=== PATIENT | male | born 1955 | race Hispanic/Latino ===

== ENCOUNTER 2017-06-12 06:10 | Inpatient (IN) | payer MEDICAID, SELFPAY ==
[2017-06-12] MEDS ORDERED: Ondansetron HCl/PF 4 MG/2 ML Vial IVP PRN ×2 (08:54→09:00)
[2017-06-12] MEDS ORDERED: Ondansetron ODT 4 MG TAB PO PRN ×2 (08:54→09:00)
[2017-06-12] MEDS ORDERED: Acetaminophen 325 MG TAB PO PRN ×2 (08:55→09:00)
[2017-06-12] MEDS ORDERED: Milk Of Magnesia 30 ML UDCUP PO PRN (09:00)
[2017-06-12] MEDS ORDERED: Nitroglycerin 0.4 MG TAB (25 Tab Bottle) SL PRN (09:00)
[2017-06-12] MEDS ORDERED: Artificial Tears 18 DROP/0.9 ML EA EYE PRN (09:00)
[2017-06-12] MEDS ORDERED: Eucerin (Mineral Oil/Petrolatum,White) 30 gm Jar TOP PRN (09:00)
[2017-06-12] MEDS ORDERED: Mag-Al 1200 mg/1200 mg/30 ML UDCUP PO PRN (09:00)
[2017-06-12] MEDS ORDERED: Sodium Chloride 0.65% Nasal 44 ML BOT EA NARE PRN (09:00)
[2017-06-12] MEDS ORDERED: Zolpidem Tartrate 5 MG TAB PO PRN (09:00)
[2017-06-12] MEDS ORDERED: Loperamide HCl 2 MG CAP PO PRN (09:00)
[2017-06-12] MEDS ORDERED: Diabetic Tussin 200 MG/10 ML UDCUP PO PRN (09:00)
[2017-06-12] MEDS ORDERED: Loratadine 10 MG TAB PO PRN (09:00)
[2017-06-12] MEDS ORDERED: Senokot 8.6 MG TAB PO PRN (09:00)
[2017-06-12] MEDS ORDERED: HYDROcodone/Acetaminophen 5/325 mg Tablet PO PRN (09:00)
--- NOTE | 2017-06-12 10:04 | HP ---
REASON FOR ADMISSION: Acute on chronic systolic and diastolic congestive heart failure exacerbation and hypertensive urgency. HISTORY OF PRESENT ILLNESS: A 61-year-old male who is Stateless speaking only, who initially went to [facility] with complaint of increasing shortness of breath. Patient had increa sing shortness of breath for the last 2-3 days, but last night episode was worse, he was having orth opnea. He does have bilateral lower extremity pitting edema and he was feeling heaviness in his [address]. He denies any palpitations. He does report increased weight gain. He was not able to lie down flat and he was feeling uncomfortable and that is why he decided to go to [facility] for evaluation. At [facility], the patient's blood pressure was 215/117. The patient was having low grad e fever with a temperature of 99.9 initially and he was tachypneic. He was requiring oxygen to main tain saturation. At [facility], he was given Lasix 40 mg, Solu-Medrol 125 mg, nitro patch 1 inch, Lasix 40 mg, metoprolol tartrate 5 mg IV push, DuoNeb therapy and aspirin 324 mg. Subsequently, he was borja sferred to our emergency room. The patient was still having high blood pressure when he arrived to our emergency room, his D-dimer was elevated and his BNP was elevated. The patient also stopped taking Lasix because he ran out and he was not followed up with the primary doctor. This patient had recent admission in our hospital in 12/2016. At that time, echocardiography showed systolic and diastolic dysfunction. The patient also had a stress test which showed global hypokin esis without any reversibility. The patient was discharged home on medication, but subsequently he did not follow up with the doctors. Patient also has increasing renal insufficiency. PAST MEDICAL HISTORY: Chronic systolic and diastolic heart failure, diabetes type 2, now diet contr olled, dyslipidemia, hypertension, chronic kidney disease stage IV, medication noncompliance, anemia normocytic. PAST SURGICAL HISTORY: Patient denies any previous surgical history. PAST PSYCHIATRIC HISTORY: Reviewed and negative. FAMILY HISTORY: No strong family history of premature coronary artery disease, stroke or cancer. REVIEW OF SYSTEMS: The following complete review of systems was negative, unless otherwise mentione d in the HPI or below: Constitutional: Weight loss or gain, ability to conduct usual activities. Skin: Rash, itching. Eyes: Double vision, pain. ENT/Mouth: Nose bleeding, neck stiffness, pain, tenderness. Cardiovascular: Palpitations, dyspnea on exertion, orthopnea. Respiratory: Shortness of breath, wheezing, cough, hemoptysis, fever or night sweats. Gastrointestinal: Poor appetite, abdominal pain, heartburn, nausea, vomiting, constipation, or diar idania. Genitourinary: Urgency, frequency, dysuria, nocturia. Musculoskeletal: Pain, swelling. Neurologic/Psychiatric: Anxiety, depression. Allergy/Immunologic: Skin rash, bleeding tendency. Please see my HPI for pertinent positive and negative. All other review of systems reviewed and neg ative except as mentioned in the HPI. ALLERGIES: No known drug allergies. SOCIAL HISTORY: Patient is a former smoker. He quit smoking a few years ago. He denies any alcoho l or other illicit drug abuse. The patient reports himself as a social drinker. As per the [facility] record, the patient reported that he drinks 6-7 beers daily, but he denies to me toda y. CURRENT HOME MEDICATIONS: Aspirin 81 mg p.o. daily, Coreg 6.25 mg p.o. b.i.d., Lasix 40 mg p.o. sven ly, Imdur 60 mg p.o. daily, pravastatin 20 mg p.o. at bedtime, hydralazine 25 mg p.o. b.i.d. EMERGENCY ROOM COURSE: The patient was given Lasix 40 mg, Solu-Medrol 125 mg, nitro patch, another dose of Lasix 40 mg, metoprolol 5 mg, DuoNeb one time, aspirin 324 mg at [facility], the patient received 10 mg IV hydralazine in our emergency room. PHYSICAL EXAMINATION: VITAL SIGNS: On arrival to our emergency room, blood pressure 192/116, pulse 102, respiratory rate 19, temperature 98.9, saturation 91% on room air. Weight 75 kilograms. GENERAL: Patient is currently alert, awake, no obvious acute distress. HEAD: Normocephalic, atraumatic. EYES: Pupils round and reactive to light. Extraocular muscle intact. ENT: Oropharynx within normal limits. Moist mucous membranes. No oral lesions. No pharyngeal regine thema, no exudate. NECK: Supple. Range of motion is normal. No meningeal signs of irritation. LUNGS: Bibasilar rales noted. Few reduced air entry, no wheeze. No accessory muscles of respirati on use. CARDIAC: S1 and S2 regular, no murmur, no gallop, no rub. ABDOMEN: Soft, bowel sounds present, nontender, nondistended. No organomegaly, no mass, no suprapu bic tenderness. BACK: Examination unremarkable, no CVA tenderness. EXTREMITIES: Upper extremity passive movements of all joints are normal. Lower extremity bilateral pitting edema noted. Good peripheral pulsation. SKIN: No skin rash. HEMATOLOGICAL SYSTEM: No lymphadenopathy. PSYCHIATRIC: Normal affect. SIGNIFICANT LABORATORY DATA: CBC: WBC 5.6, hemoglobin 11.8, platelets 182. D-dimer 1.83. BMP: S odium 136, potassium 4.3, chloride 108, carbon dioxide 14, anion gap 18, BUN 21, creatinine 4.38, gl ucose 114, calcium 6.8. CK-MB 4.1, troponin I 0.012. BNP 2695. ASSESSMENT AND PLAN/IMPRESSION: 1. Acute on chronic systolic and diastolic congestive heart failure exacerbation. This patient has most recent echocardiography in 01/2017 and ejection fraction was 30%-35% with diastolic dysfunctio n. Currently, patient is not taking any medication. He ran out of medication, Lasix. He has eleva dyan BNP. He has pulmonary vascular congestion. He has relative hypoxia. He has bilateral lower ex tremity edema and basilar rales, all contributes to his congestive heart failure exacerbation. At t his point, the patient will require admission. We will treat him with Lasix 40-60 mg IV b.i.d., flu id restriction 1500 mL per day. We will monitor renal function and will replace electrolytes as nee ded basis. Patient already had a stress test done during this admission and it was negative for any reversible ischemia. 2. Acute on chronic kidney failure. This patient has gradually worsening renal failure with baseli ne chronic kidney disease stage 4. This patient, if he does not make any good urine output with Las ix, then we will consider nephrology consultation for possible need of dialysis in the near future, at least we can do dialysis access during this admission, so he can get dialysis in the near future. His kidney failure is related with cardiorenal syndrome and diabetic nephropathy. We will check u rinalysis, urine protein creatinine ratio. 3. Hypertension with hypertensive urgency and uncontrolled hypertension. We will use hydralazine o n p.r.n. basis. We will continue with nitro patch q.8 hourly along with hydralazine 25 mg t.i.d. an d Coreg was 6.25 mg p.o. b.i.d. We will increase the dose of Coreg as tolerated. 4. Dyslipidemia. We will start Lipitor 40 mg p.o. at bedtime and check lipid profile tomorrow. 5. Deep venous thrombosis prophylaxis, heparin 5000 units subcu twice daily. 6. Anemia of renal disease. We will start ferrous sulfate 325 mg p.o. daily. 7. Metabolic acidosis likely due to renal failure. We will start sodium bicarbonate 325 mg p.o. b. i.d. 8. Hypocalcemia, likely related with secondary hyperparathyroidism of renal origin and we will chec k PTH and phosphorus tomorrow. We will continue with the calcium carbonate, Tums 1 gram t.i.d. 9. Code status: The patient is FULL CODE. Patient does not have any surrogate decision maker. Disposition and plan based on clinical course. We are expecting patient's stay in hospital more kali n 2 midnights. Plan of 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 with the patient in detail.
[2017-06-12 10:11] LABS: Troponin I 0.037 ng/mL (< 0.028)
[2017-06-12] MEDS ORDERED: FLU VACC QS2017-18 36 mo. & older 0.5 ML SYRINGE IM ONE (11:15)
[2017-06-12 11:22] VITALS: BMI 28.8
[2017-06-12] MEDS: Heparin 5,000 UNITS/ML VIAL SC SCH ×2 (11:31→21:26)
[2017-06-12] MEDS: Furosemide 40 MG/4 ML VIAL SLOW IVP SCH (14:08)
[2017-06-12] MEDS: Nitroglycerin 2% Ointment 1 INCH/1 GM Packet TOP SCH ×2 (14:10→21:27)
[2017-06-12] MEDS ORDERED: Dextrose 50% Abboject 50 ML SYRINGE IVP PRN (17:47)
[2017-06-12] MEDS ORDERED: HumaLOG 300 UNITS/3 ML VIAL SC PRN (17:47)
[2017-06-12] MEDS ORDERED: Dextrose 5% in Water 1,000 ML IV PRN (17:47)
[2017-06-12] MEDS: Carvedilol 6.25 MG TAB PO SCH (17:59)
--- NOTE | 2017-06-12 18:57 | CON ---
DATE OF CONSULTATION: 06/12/2017 NEPHROLOGY CONSULTATION REASON FOR CONSULTATION: Acute kidney injury. HISTORY OF PRESENTING ILLNESS: This is a very pleasant 61-year-old gentleman who presented to the [facility] this morning for management of hypertensive urgency and acute congestive heart failure. The patient has shortness of breath for the last 2-3 days. The patient was treated with Lasix. His [facility] creatinine was 3.6 in 01/2017 and increased to 4.3. The patient at this time denies leg swel ling, nausea, vomiting or chest pain. PAST MEDICAL HISTORY: Significant for hypertension, diabetes mellitus, CKD stage 4, noncompliance, history of no surgery. FAMILY HISTORY: Negative for ESRD. REVIEW OF SYSTEMS: A 15-point review of systems was performed and negative except for positives not ed above. GENERAL: Weakness- HEAD: Headache- NECK: No swelling or lumps. NOSE: No epistaxis or discharge. EYES: No diplopia or pain. RESPIRATORY: Dyspnea- CARDIOVASCULAR: Chest pain- GASTROINTESTINAL: Nausea- /TRANSITIONAL CARE LIAISON: Hematuria- MUSCULOSKELETAL: No joint pain. NEUROPSYCHIATIC SYSTEMS: No suicidal ideation. No ideation. SKIN: Denies any rash or ulcer. CONSTITUTIONAL: No fever or chills. ALLERGIES: Reviewed. SOCIOECONOMIC: No alcohol or drug use. HOME MEDICATIONS: List reviewed. PHYSICAL EXAMINATION: GENERAL: On examination, patient is awake, alert. VITAL SIGNS: Afebrile, pulse 102, breathing at 16, blood pressure 192/116. GENERAL APPEARANCE AND MENTAL STATUS: Fair. HEAD/NECK: Normocephalic. Atraumatic. EYES: EOMI. No deformity. EARS: Clear. No ulcers. NOSE: Intact. No lesions. MOUTH: Clear. No discharge. THROAT: Clear. No exudate. LUNGS: Clear. No crackles. CARDIAC: S1, S2. No rub. ABDOMEN: Benign. BS+. GENITALIA/RECTUM: Teague absent. BACK/EXTREMITIES: Edema 0+ Ulcer- NEUROLOGICAL: Alert and motor intact. SKIN: Rash- Bruise- LYMPHATICS: Edema- Ulcer- LABORATORY DATA: Show creatinine 4.3. ASSESSMENT AND RECOMMENDATIONS: 1. Stage 5 chronic kidney disease. No indication for dialysis. 2. Hypertension, management per primary team. 3. Metabolic acidosis. Recommend sodium bicarbonate 650 t.i.d. 4. Congestive heart failure. Management primary team and low vitamin D level and give vitamin D re placement. I will follow the patient as needed.
[2017-06-12] MEDS: Calcium Carbonate 500 MG ChewTAB PO SCH (21:26)
[2017-06-12] MEDS: Sodium Bicarbonate Tab 325 MG TAB PO SCH (21:27)
[2017-06-13 05:21] LABS: #Lymphocytes 0.5 thou/uL (1.20-3.40); #Monocytes 0.4 thou/uL (0.11-0.59); #Neutrophils 5.8 thou/uL (1.40-6.50); %Eosinophils 0.3 % (0.0-10.0); %Lymphocytes 6.8 % (21.0-51.0); %Monocytes 5.9 % (0.0-10.0); Hematocrit 26.1 % (42.0-52.0); Mean Platelet Volume 7.9 fL (7.4-10.4); Red Blood Cell (RBC) Count 2.86 mill/uL (4.70-6.10); White Blood Cell (WBC) Count 6.6 thou/uL (4.8-10.8)
[2017-06-13 05:29] LABS: ALT (SGPT) 10 U/L (8-55); AST (SGOT) 14 U/L (5-34); Alkaline Phosphatase 61 U/L (40-150); Anion Gap 14 mmol/L (10-20); BUN (Urea Nitrogen) 35 mg/dL (8.4-25.7); Bilirubin, Total 0.3 mg/dL (0.2-1.2); Calc. Creatinine Clearance 17 mL/min (70-130); Calcium 6.6 mg/dL (7.8-10.44); Carbon Dioxide 19 mmol/L (22-29); Chloride 108 mmol/L (98-107); Estimated GFR-MDRD 12; Globulin 2.9 g/dL (2.4-3.5); Protein, Total 5.7 g/dL (6.0-8.3); Uric Acid 7.7 mg/dL (3.5-7.2)
[2017-06-13] MEDS: Nitroglycerin 2% Ointment 1 INCH/1 GM Packet TOP SCH ×3 (05:37→21:07)
[2017-06-13] MEDS: Furosemide 40 MG/4 ML VIAL SLOW IVP SCH (05:37)
--- NOTE | 2017-06-13 08:10 | PRG ---
DATE OF SERVICE: 06/13/2017 SUBJECTIVE: This is a 61-year-old gentleman being seen for stage 5 chronic kidney disease. The pat ient denies any nausea, vomiting or chest pain. PHYSICAL EXAMINATION: GENERAL: Patient is awake, alert. VITAL SIGNS: Afebrile, pulse 95, breathing at 16, blood pressure 138/66. GENERAL APPEARANCE AND MENTAL STATUS: Fair. HEAD/NECK: Normocephalic. Atraumatic. EYES: EOMI. No deformity. EARS: Clear. No ulcers. NOSE: Intact. No lesions. MOUTH: Clear. No discharge. THROAT: Clear. No exudate. LUNGS: Clear. No crackles. CARDIAC: S1, S2. No rub. ABDOMEN: Benign. BS+. GENITALIA/RECTUM: Teague absent. BACK/EXTREMITIES: Edema 0+ Ulcer- NEUROLOGICAL: Alert and motor intact. SKIN: Rash- Bruise- LYMPHATICS: Edema- Ulcer- LABORATORY DATA: Show potassium is 4.9, creatinine is 5.1. ASSESSMENT AND RECOMMENDATIONS: 1. Stage 5 chronic kidney disease, progressively getting worse. No indication for dialysis. 2. Hypertension, stable. 3. Anemia, stable. 4. Hypocalcemia. Recommend to increase Tums. 5. Hypouricemia. Would recommend allopurinol. No indication for dialysis.
[2017-06-13] MEDS: Calcium Carbonate 500 MG ChewTAB PO SCH ×2 (08:42→21:05)
[2017-06-13] MEDS: Allopurinol 100 MG TAB PO SCH (08:42)
[2017-06-13] MEDS: Calcitriol 0.25 MCG CAP PO SCH (08:42)
[2017-06-13] MEDS: Carvedilol 6.25 MG TAB PO SCH ×2 (08:42→16:45)
[2017-06-13] MEDS: Sodium Bicarbonate Tab 325 MG TAB PO SCH ×2 (08:42→21:07)
[2017-06-13] MEDS: Ferrous Sulfate 325 MG TAB PO SCH (08:42)
[2017-06-13] MEDS: Heparin 5,000 UNITS/ML VIAL SC SCH ×2 (08:42→21:06)
[2017-06-13] MEDS: Calcium Acetate 667 MG CAP PO SCH ×2 (12:12→16:44)
--- NOTE | 2017-06-13 12:57 | PDOC.PN ---
- Subjective Encounter Start Date: 06/13/17 Encounter Start Time: 08:45 -: old records requested/rev Patient seen and examined. No new complaints. No overnight events - Objective Resuscitation Status: Resuscitation Status FULL:Full Resuscitation MAR Reviewed: Yes Vital Signs & Weight: Vital Signs (12 hours) Temp Pulse Resp BP BP Pulse Ox 06/13/17 08:42 96 145/78 H 06/13/17 08:00 97.8 F 90 16 145/78 H 98 06/13/17 06:24 96 16 100 06/13/17 04:00 98.4 F 94 20 138/66 99 Weight Weight 167 lb 14.4 oz I&O: 06/12/17 06/13/17 06/14/17 06:59 06:59 06:59 Intake Total 240 Balance 240 Result Diagrams: 06/13/17 05:03 06/13/17 05:03 Additional Labs: Accuchecks 06/13/17 06/13/17 06/12/17 11:43 06:06 20:42 POC Glucose 152 H 139 H 280 H 06/12/17 17:07 POC Glucose 351 H EKG Reviewed by me: Yes Phys Exam - Physical Examination Constitutional: NAD HEENT: PERRLA, moist MMs, sclera anicteric Neck: no JVD, supple Respiratory: no wheezing, no rales, no rhonchi Cardiovascular: RRR, no significant murmur, no rub Gastrointestinal: soft, non-tender, no distention, positive bowel sounds Musculoskeletal: no edema, pulses present Neurological: non-focal, normal sensation Lymphatic: no nodes Psychiatric: normal affect, A&O x 3 Skin: no rash, normal turgor Dx/Plan (1) Acute on chronic combined systolic and diastolic congestive heart failure Code(s): I50.43 - ACUTE ON CHRONIC COMBINED SYSTOLIC AND DIASTOLIC HRT FAIL Status: Acute (2) Acute worsening of stage 4 chronic kidney disease Code(s): N28.9 - DISORDER OF KIDNEY AND URETER, UNSPECIFIED; N18.4 - CHRONIC KIDNEY DISEASE, STAGE 4 (SEVERE) Status: Acute (3) Hypertension, uncontrolled Code(s): I10 - ESSENTIAL (PRIMARY) HYPERTENSION Status: Acute (4) Hyperuricemia Code(s): E79.0 - HYPERURICEMIA W/O SIGNS OF INFLAM ARTHRIT AND TOPHACEOUS DIS Status: Acute (5) Hypocalcemia Code(s): E83.51 - HYPOCALCEMIA Status: Acute (6) Metabolic acidosis Code(s): E87.2 - ACIDOSIS Status: Acute (7) Vitamin D deficiency Code(s): E55.9 - VITAMIN D DEFICIENCY, UNSPECIFIED Status: Acute (8) Anemia of renal disease Code(s): D63.1 - ANEMIA IN CHRONIC KIDNEY DISEASE Status: Chronic (9) CKD (chronic kidney disease) stage 4, GFR 15-29 ml/min Code(s): N18.4 - CHRONIC KIDNEY DISEASE, STAGE 4 (SEVERE) Status: Chronic (10) DM type 2 (diabetes mellitus, type 2) Status: Chronic (11) Noncompliance with medication regimen Code(s): Z91.14 - PATIENT'S OTHER NONCOMPLIANCE WITH MEDICATION REGIMEN Status : Chronic (12) Secondary hyperparathyroidism of renal origin Code(s): N25.81 - SECONDARY HYPERPARATHYROIDISM OF RENAL ORIGIN Status: Chronic - 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, plan discussed w/ family * will add phoslo, allopurinol today * will check urine protein and creatinine * may need to start HD this admission * nephrology following * discussed with * medication reviewed as below * symptomatic treatment. * will reduce lasix daily * monitor renal function Review of Systems - Review of Systems ENT: negative: Ear Pain, Ear Discharge, Nose Pain, Nose Discharge, Nose Congestion, Mouth Pain, Mouth Swelling, Throat Pain, Throat Swelling, Other Respiratory: negative: Cough, Dry, Shortness of Breath, Hemoptysis, SOB with Excertion, Pleuritic Pain, Sputum, Wheezing Cardiovascular: negative: Chest Pain, Palpitations, Orthopnea, Paroxysmal Noc. Dyspnea, Edema, Light Headedness, Other Gastrointestinal: negative: Nausea, Vomiting, Abdominal Pain, Diarrhea, Constipation, Melena, Hematochezia, Other Genitourinary: negative: Dysuria, Frequency, Incontinence, Hematuria, Retention , Other Musculoskeletal: negative: Neck Pain, Shoulder Pain, Arm Pain, Back Pain, Hand Pain, Leg Pain, Foot Pain, Other Skin: negative: Rash, Lesions, Reji, Bruising, Other - Medications/Allergies Allergies/Adverse Reactions: Allergies Allergy/AdvReac Type Severity Reaction Status Date / Time No Known Drug Allergies Allergy Verified 12/29/16 23:47 Medications: Current Medications Acetaminophen (Tylenol) 650 mg PO Q4H PRN PRN Reason: Headache/Fever or Pain Hydrocodone Bitart/Acetaminophen (Holden 5/325) 1 tab PO Q4H PRN PRN Reason: Moderate Pain (4-6) Al Hydroxide/Mg Hydroxide (Maalox) 30 ml PO Q6H PRN PRN Reason: Heartburn or Indigestion Albuterol/Ipratropium (Duoneb) 3 ml NEB [id number] [facility] Last Admin: 06/13/17 06:24 Dose: 3 ml Allopurinol (Zyloprim) 100 mg PO DAILY [facility] Last Admin: 06/13/17 08:42 Dose: 100 mg Artificial Tears (Tears Naturale) 0 drop EA EYE PRN PRN PRN Reason: Dry Eyes Aspirin (Aspirin Chewable) 81 mg PO DAILY [facility] Last Admin: 06/13/17 08:42 Dose: 81 mg Calcitriol (Rocaltrol) 0.25 mcg PO DAILY [facility] Last Admin: 06/13/17 08:42 Dose: 0.25 mcg Calcium Acetate (Phoslo) 1,334 mg PO TID-[facility] Last Admin: 06/13/17 12:12 Dose: 1,334 mg Calcium Carbonate (Tums) 1,000 mg PO BID [facility] Last Admin: 06/13/17 08:42 Dose: 1,000 mg Carvedilol (Coreg) 6.25 mg PO BID-[facility] Last Admin: 06/13/17 08:42 Dose: 6.25 mg Cholecalciferol (Vitamin D3) 1,000 units PO DAILY [facility] Last Admin: 06/13/17 08:42 Dose: 1,000 units Dextrose/Water (Dextrose 50%) 25 gm IVP PRN PRN PRN Reason: HYPOGLYCEMIA PROTOCOL Ferrous Sulfate (Feosol) 325 mg PO QAM-[facility] Last Admin: 06/13/17 08:42 Dose: 325 mg Furosemide (Lasix) 40 mg SLOW IVP 0600,1400 [facility] Last Admin: 06/13/17 05:37 Dose: 40 mg Glucagon (Glucagon) 1 mg IM PRN PRN PRN Reason: HYPOGLYCEMIA PROTOCOL Guaifenesin (Robitussin Sf) 200 mg PO Q4H PRN PRN Reason: Cough Heparin Sodium (Porcine) (Heparin) 5,000 units SC BID [facility] Last Admin: 06/13/17 08:42 Dose: 5,000 units Hydralazine HCl (Apresoline) 10 mg SLOW IVP Q4H PRN PRN Reason: Systolic BP > 180 Last Admin: 06/12/17 18:02 Dose: 10 mg Hydralazine HCl (Apresoline) 25 mg PO TID [facility] Last Admin: 06/13/17 08:42 Dose: 25 mg Dextrose/Water (D5w) 1,000 mls @ 0 mls/hr IV INF PRN; As Directed PRN Reason: HYPOGLYCEMIA PROTOCOL Insulin Human Lispro (Humalog) 0 units SC .MODERATE SLIDING SC PRN; Protocol PRN Reason: MODERATE SLIDING SCALE Last Admin: 06/12/17 18:05 Dose: 10 unit Loperamide HCl (Imodium) 2 mg PO PRN PRN PRN Reason: Diarrhea/Loose Stools Loratadine (Claritin) 10 mg PO DAILYPRN PRN PRN Reason: Sinus Symptoms Magnesium Hydroxide (Milk Of Magnesium) 30 ml PO DAILYPRN PRN PRN Reason: Constipation Mineral Oil/White Petrolatum (Eucerin Cream) 0 gm TOP BIDPRN PRN PRN Reason: Dry Skin Nitroglycerin (Nitrostat) 0.4 mg SL Q5MIN PRN PRN Reason: Chest Pain Nitroglycerin (Nitro-Bid 2% Ointment) 0.5 inch TOP Q8HR [facility] Last Admin: 06/13/17 05:37 Dose: 0.5 inch Ondansetron HCl (Zofran Odt) 4 mg PO Q6H PRN PRN Reason: Nausea/Vomiting Ondansetron HCl (Zofran) 4 mg IVP Q6H PRN PRN Reason: Nausea/Vomiting Senna (Senokot) 2 tab PO HSPRN PRN PRN Reason: Constipation Sodium Bicarbonate (Bicarbonate, Sodium) 325 mg PO BID [facility] Last Admin: 06/13/17 08:42 Dose: 325 mg Sodium Chloride (Flush - Normal Saline) 10 ml IVF Q12HR [facility] Last Admin: 06/13/17 08:43 Dose: 10 ml Sodium Chloride (Flush - Normal Saline) 10 ml IVF PRN PRN PRN Reason: Saline Flush Sodium Chloride (Krupp Nasal Davis 0.65%) 0 ml EA NARE QIDPRN PRN PRN Reason: Nasal Congestion Zolpidem Tartrate (Ambien) 5 mg PO HSPRN PRN PRN Reason: Insomnia
[2017-06-13 15:34] LABS: Bilirubin Negative (Negative); Blood, Urine Trace (Negative); Glucose, Urine (Dipstick) 100 mg/dL (Negative); Ketone, Urine Negative (Negative); Nitrite Negative (Negative); Protein, Urine (Dipstick) 300 mg/dL (Neg-Trace); Urobilinogen 0.2 mg/dL (0.2-1.0)
[2017-06-13 15:36] LABS: Bacteria/HPF None Seen HPF (None Seen); Hyaline Casts/LPF 0-3 HYALINE CAST LPF (0-3 Hyaline); Squamous Epithelial 0-3 HPF (0-3); WBC/HPF 0-3 HPF (0-3)
[2017-06-14 05:06] LABS: #Eosinphils 0.1 thou/uL (0.0-0.7); #Lymphocytes 0.5 thou/uL (1.20-3.40); #Monocytes 0.3 thou/uL (0.11-0.59); %Basophils 0.3 % (0.0-1.0); %Eosinophils 1.9 % (0.0-10.0); %Lymphocytes 7.6 % (21.0-51.0); Hematocrit 27.3 % (42.0-52.0); Mean Platelet Volume 8.2 fL (7.4-10.4); Red Blood Cell (RBC) Count 2.97 mill/uL (4.70-6.10)
[2017-06-14 05:39] LABS: Anion Gap 10 mmol/L (10-20); BUN (Urea Nitrogen) 37 mg/dL (8.4-25.7); Calc. Creatinine Clearance 17 mL/min (70-130); Calcium 7.2 mg/dL (7.8-10.44); Carbon Dioxide 25 mmol/L (22-29); Chloride 105 mmol/L (98-107); Estimated GFR-MDRD 12; Phosphorus 4.8 mg/dL (2.3-4.7)
[2017-06-14] MEDS: Nitroglycerin 2% Ointment 1 INCH/1 GM Packet TOP SCH ×3 (05:48→21:03)
[2017-06-14] MEDS: Furosemide 40 MG/4 ML VIAL SLOW IVP SCH (08:09)
[2017-06-14] MEDS: Calcitriol 0.25 MCG CAP PO SCH (08:09)
[2017-06-14] MEDS: Calcium Carbonate 500 MG ChewTAB PO SCH ×2 (08:09→21:03)
[2017-06-14] MEDS: Sodium Bicarbonate Tab 325 MG TAB PO SCH ×2 (08:09→21:02)
[2017-06-14] MEDS: Heparin 5,000 UNITS/ML VIAL SC SCH ×2 (08:09→21:05)
[2017-06-14] MEDS: Carvedilol 6.25 MG TAB PO SCH ×2 (08:09→17:42)
[2017-06-14] MEDS: Allopurinol 100 MG TAB PO SCH (08:09)
[2017-06-14] MEDS: Calcium Acetate 667 MG CAP PO SCH ×3 (08:09→17:42)
[2017-06-14] MEDS: Ferrous Sulfate 325 MG TAB PO SCH (08:10)
--- NOTE | 2017-06-14 09:23 | PRG ---
DATE OF SERVICE: 06/13/2017 SUBJECTIVE: A 61-year-old gentleman being seen for acute kidney injury. The patient denies any juan sea, vomiting, or chest pain. PHYSICAL EXAMINATION: GENERAL: The patient is awake, alert. VITAL SIGNS: Temperature 100, pulse 81, breathing at 16, blood pressure 152/79. GENERAL APPEARANCE AND MENTAL STATUS: Fair. HEAD/NECK: Normocephalic. Atraumatic. EYES: EOMI. No deformity. EARS: Clear. No ulcers. NOSE: Intact. No lesions. MOUTH: Clear. No discharge. THROAT: Clear. No exudate. LUNGS: Clear. No crackles. CARDIAC: S1, S2. No rub. ABDOMEN: Benign. BS+. GENITALIA/RECTUM: Teague absent. BACK/EXTREMITIES: Edema 0+ Ulcer- NEUROLOGICAL: Alert and motor intact. SKIN: Rash- Bruise- LYMPHATICS: Edema- Ulcer- LABORATORY DATA: Show hemoglobin 9.2, creatinine 5.07. ASSESSMENT AND RECOMMENDATIONS: 1. Chronic kidney disease, stage 5. No indication for any dialysis. 2. Hyperkalemia, stable. 3. Hypertension, stable. 4. Medications based on glomerular filtration rate are appropriate. Outpatient set followup per [facility] services.
--- NOTE | 2017-06-14 09:33 | PDOC.PN ---
- Subjective Encounter Start Date: 06/14/17 Encounter Start Time: 07:30 Patient seen and examined. No new complaints. No overnight events - Objective Resuscitation Status: Resuscitation Status FULL:Full Resuscitation MAR Reviewed: Yes Vital Signs & Weight: Vital Signs (12 hours) Temp Pulse Resp BP Pulse Ox 06/14/17 08:10 81 06/14/17 08:04 81 18 98 06/14/17 07:37 99.7 F H 82 14 93 L 06/14/17 07:27 99.7 F H 82 14 173/90 H 93 L 06/14/17 04:00 100.2 F H 87 18 158/79 H 96 Weight Weight 165 lb 8 oz I&O: 06/13/17 06/14/17 06/15/17 06:59 06:59 06:59 Intake Total 240 1040 Output Total 860 Balance 240 180 Result Diagrams: 06/14/17 04:33 06/14/17 04:33 Additional Labs: Accuchecks 06/14/17 06/13/17 06/13/17 06:04 20:44 16:37 POC Glucose 118 H 203 H 144 H 06/13/17 06/12/17 11:43 20:42 POC Glucose 152 H 280 H EKG Reviewed by me: Yes Phys Exam - Physical Examination Constitutional: NAD HEENT: PERRLA, moist MMs, sclera anicteric Neck: no JVD, supple Respiratory: no wheezing, no rales, no rhonchi Cardiovascular: RRR, no significant murmur, no rub Gastrointestinal: soft, non-tender, no distention, positive bowel sounds Musculoskeletal: no edema, pulses present Neurological: non-focal, normal sensation, moves all 4 limbs Psychiatric: normal affect, A&O x 3 Skin: no rash, normal turgor Dx/Plan (1) Acute on chronic combined systolic and diastolic congestive heart failure Code(s): I50.43 - ACUTE ON CHRONIC COMBINED SYSTOLIC AND DIASTOLIC HRT FAIL Status: Acute (2) Acute worsening of stage 4 chronic kidney disease Code(s): N28.9 - DISORDER OF KIDNEY AND URETER, UNSPECIFIED; N18.4 - CHRONIC KIDNEY DISEASE, STAGE 4 (SEVERE) Status: Acute (3) Hypertension, uncontrolled Code(s): I10 - ESSENTIAL (PRIMARY) HYPERTENSION Status: Acute (4) Hyperuricemia Code(s): E79.0 - HYPERURICEMIA W/O SIGNS OF INFLAM ARTHRIT AND TOPHACEOUS DIS Status: Acute (5) Hypocalcemia Code(s): E83.51 - HYPOCALCEMIA Status: Acute (6) Metabolic acidosis Code(s): E87.2 - ACIDOSIS Status: Acute (7) Vitamin D deficiency Code(s): E55.9 - VITAMIN D DEFICIENCY, UNSPECIFIED Status: Acute (8) Anemia of renal disease Code(s): D63.1 - ANEMIA IN CHRONIC KIDNEY DISEASE Status: Chronic (9) CKD (chronic kidney disease) stage 4, GFR 15-29 ml/min Code(s): N18.4 - CHRONIC KIDNEY DISEASE, STAGE 4 (SEVERE) Status: Chronic (10) DM type 2 (diabetes mellitus, type 2) Status: Chronic (11) Noncompliance with medication regimen Code(s): Z91.14 - PATIENT'S OTHER NONCOMPLIANCE WITH MEDICATION REGIMEN Status : Chronic (12) Secondary hyperparathyroidism of renal origin Code(s): N25.81 - SECONDARY HYPERPARATHYROIDISM OF RENAL ORIGIN Status: Chronic - 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 * as per nephrology, no indication for HD now but he is at edge of need for HD * today will dc tele and transfer to medical * if renal function continue to improve or stable, will consider discharge tomorrow * as pt has no funding, it would be challenging to arrange HD set up outpt as well * will adjust his medication today * medication reviewed as below * symptomatic treatment. Review of Systems - Review of Systems ENT: negative: Ear Pain, Ear Discharge, Nose Pain, Nose Discharge, Nose Congestion, Mouth Pain, Mouth Swelling, Throat Pain, Throat Swelling, Other Respiratory: negative: Cough, Dry, Shortness of Breath, Hemoptysis, SOB with Excertion, Pleuritic Pain, Sputum, Wheezing Cardiovascular: negative: Chest Pain, Palpitations, Orthopnea, Paroxysmal Noc. Dyspnea, Edema, Light Headedness, Other Gastrointestinal: negative: Nausea, Vomiting, Abdominal Pain, Diarrhea, Constipation, Melena, Hematochezia, Other Genitourinary: negative: Dysuria, Frequency, Incontinence, Hematuria, Retention , Other Musculoskeletal: negative: Neck Pain, Shoulder Pain, Arm Pain, Back Pain, Hand Pain, Leg Pain, Foot Pain, Other - Medications/Allergies Allergies/Adverse Reactions: Allergies Allergy/AdvReac Type Severity Reaction Status Date / Time No Known Drug Allergies Allergy Verified 12/29/16 23:47 Medications: Current Medications Acetaminophen (Tylenol) 650 mg PO Q4H PRN PRN Reason: Headache/Fever or Pain Last Admin: 06/14/17 08:10 Dose: 650 mg Hydrocodone Bitart/Acetaminophen ([place] 5/325) 1 tab PO Q4H PRN PRN Reason: Moderate Pain (4-6) Al Hydroxide/Mg Hydroxide (Maalox) 30 ml PO Q6H PRN PRN Reason: Heartburn or Indigestion Albuterol/Ipratropium (Duoneb) 3 ml NEB [id number] [facility] Last Admin: 06/14/17 08:04 Dose: 3 ml Allopurinol (Zyloprim) 100 mg PO DAILY [facility] Last Admin: 06/14/17 08:09 Dose: 100 mg Artificial Tears (Tears Naturale) 0 drop EA EYE PRN PRN PRN Reason: Dry Eyes Aspirin (Aspirin Chewable) 81 mg PO DAILY [facility] Last Admin: 06/14/17 08:10 Dose: 81 mg Calcitriol (Rocaltrol) 0.25 mcg PO DAILY [facility] Last Admin: 06/14/17 08:09 Dose: 0.25 mcg Calcium Acetate (Phoslo) 1,334 mg PO TID-[facility] Last Admin: 06/14/17 08:09 Dose: 1,334 mg Calcium Carbonate (Tums) 1,000 mg PO BID [facility] Last Admin: 06/14/17 08:09 Dose: 1,000 mg Carvedilol (Coreg) 6.25 mg PO BID-[facility] Last Admin: 06/14/17 08:09 Dose: 6.25 mg Cholecalciferol (Vitamin D3) 1,000 units PO DAILY [facility] Last Admin: 06/14/17 08:09 Dose: 1,000 units Dextrose/Water (Dextrose 50%) 25 gm IVP PRN PRN PRN Reason: HYPOGLYCEMIA PROTOCOL Ferrous Sulfate (Feosol) 325 mg PO QAM-[facility] Last Admin: 06/14/17 08:10 Dose: 325 mg Furosemide (Lasix) 40 mg SLOW IVP DAILY [facility] Last Admin: 06/14/17 08:09 Dose: 40 mg Glucagon (Glucagon) 1 mg IM PRN PRN PRN Reason: HYPOGLYCEMIA PROTOCOL Guaifenesin (Robitussin Sf) 200 mg PO Q4H PRN PRN Reason: Cough Heparin Sodium (Porcine) (Heparin) 5,000 units SC BID [facility] Last Admin: 06/14/17 08:09 Dose: 5,000 units Hydralazine HCl (Apresoline) 10 mg SLOW IVP Q4H PRN PRN Reason: Systolic BP > 180 Last Admin: 06/12/17 18:02 Dose: 10 mg Hydralazine HCl (Apresoline) 25 mg PO TID [facility] Last Admin: 06/14/17 08:10 Dose: 25 mg Dextrose/Water (D5w) 1,000 mls @ 0 mls/hr IV INF PRN; As Directed PRN Reason: HYPOGLYCEMIA PROTOCOL Insulin Human Lispro (Humalog) 0 units SC .MODERATE SLIDING SC PRN; Protocol PRN Reason: MODERATE SLIDING SCALE Last Admin: 06/12/17 18:05 Dose: 10 unit Loperamide HCl (Imodium) 2 mg PO PRN PRN PRN Reason: Diarrhea/Loose Stools Loratadine (Claritin) 10 mg PO DAILYPRN PRN PRN Reason: Sinus Symptoms Magnesium Hydroxide (Milk Of Magnesium) 30 ml PO DAILYPRN PRN PRN Reason: Constipation Mineral Oil/White Petrolatum (Eucerin Cream) 0 gm TOP BIDPRN PRN PRN Reason: Dry Skin Nitroglycerin (Nitrostat) 0.4 mg SL Q5MIN PRN PRN Reason: Chest Pain Nitroglycerin (Nitro-Bid 2% Ointment) 0.5 inch TOP Q8HR [facility] Last Admin: 06/14/17 05:48 Dose: 0.5 inch Ondansetron HCl (Zofran Odt) 4 mg PO Q6H PRN PRN Reason: Nausea/Vomiting Ondansetron HCl (Zofran) 4 mg IVP Q6H PRN PRN Reason: Nausea/Vomiting Senna (Senokot) 2 tab PO HSPRN PRN PRN Reason: Constipation Sodium Bicarbonate (Bicarbonate, Sodium) 325 mg PO BID [facility] Last Admin: 06/14/17 08:09 Dose: 325 mg Sodium Chloride (Flush - Normal Saline) 10 ml IVF Q12HR [facility] Last Admin: 06/14/17 08:10 Dose: 10 ml Sodium Chloride (Flush - Normal Saline) 10 ml IVF PRN PRN PRN Reason: Saline Flush Sodium Chloride ([place] Nasal [place] 0.65%) 0 ml EA NARE QIDPRN PRN PRN Reason: Nasal Congestion Zolpidem Tartrate (Ambien) 5 mg PO HSPRN PRN PRN Reason: Insomnia
[2017-06-15] MEDS: Nitroglycerin 2% Ointment 1 INCH/1 GM Packet TOP SCH ×2 (05:41→14:27)
[2017-06-15 07:13] VITALS: BP 173/83; TEMP 98.8
[2017-06-15] MEDS: Calcium Carbonate 500 MG ChewTAB PO SCH (07:58)
[2017-06-15] MEDS: Allopurinol 100 MG TAB PO SCH (07:59)
[2017-06-15] MEDS: Ferrous Sulfate 325 MG TAB PO SCH (07:59)
[2017-06-15] MEDS: Calcitriol 0.25 MCG CAP PO SCH (07:59)
[2017-06-15] MEDS: Sodium Bicarbonate Tab 325 MG TAB PO SCH (07:59)
[2017-06-15] MEDS: Furosemide 40 MG/4 ML VIAL SLOW IVP SCH (08:00)
[2017-06-15] MEDS: Calcium Acetate 667 MG CAP PO SCH (08:00)
[2017-06-15] MEDS: Carvedilol 6.25 MG TAB PO SCH (08:00)
--- NOTE | 2017-06-15 09:01 | PRG ---
DATE OF SERVICE: 06/15/2017 SUBJECTIVE: This is a 61-year-old gentleman being seen for acute kidney injury. The patient denies any nausea, vomiting, or chest pain. PHYSICAL EXAMINATION: GENERAL: Patient is awake, alert. VITAL SIGNS: Afebrile, pulse 70, breathing at 16, blood pressure 157/53. OBJECTIVE: See above. Awake, alert, in no acute distress. GENERAL APPEARANCE AND MENTAL STATUS: Fair. HEAD/NECK: Normocephalic. Atraumatic. EYES: EOMI. No deformity. EARS: Clear. No ulcers. NOSE: Intact. No lesions. MOUTH: Clear. No discharge. THROAT: Clear. No exudate. LUNGS: Clear. No crackles. CARDIAC: S1, S2. No rub. ABDOMEN: Benign. BS+. GENITALIA/RECTUM: Teague absent. BACK/EXTREMITIES: Edema 0+ Ulcer- NEUROLOGICAL: Alert and motor intact. SKIN: Rash- Bruise- LYMPHATICS: Edema- Ulcer- LABORATORY: Hemoglobin 9.2, creatinine is pending. ASSESSMENT AND RECOMMENDATIONS: 1. Chronic kidney disease stage 4-5, we will recheck labs. 2. Hypertension, stable. 3. Anemia, stable. 4. Medications based on glomerular filtration rate are appropriate. No urgent indication for dialy sis.
[2017-06-15 09:06] LABS: Anion Gap 13 mmol/L (10-20); BUN (Urea Nitrogen) 41 mg/dL (8.4-25.7); BUN/Creatinine Ratio 8.12; Calc. Creatinine Clearance 17 mL/min (70-130); Calcium 7.8 mg/dL (7.8-10.44); Carbon Dioxide 22 mmol/L (22-29); Chloride 107 mmol/L (98-107); Estimated GFR-MDRD 12; Phosphorus 5.1 mg/dL (2.3-4.7)
--- NOTE | 2017-06-15 10:48 | DIS ---
PRIMARY CARE PHYSICIAN: [facility] DATE OF ADMISSION: 06/12/2017 DATE OF DISCHARGE: 06/15/2017 DISCHARGE DISPOSITION: Home. PRIMARY DISCHARGE DIAGNOSES: 1. Acute on chronic combined systolic and diastolic congestive heart failure exacerbation due to noncompliance with treatment. 2. Acute worsening of stage 4 chronic kidney disease. 3. Hypertension, uncontrolled. 4. Hyperuricemia. 5. Hypocalcemia. 6. Metabolic acidosis. 7. Vitamin D deficiency. 8. Nephrotic syndrome due to diabetic nephropathy. SECONDARY DISCHARGE DIAGNOSES: Anemia of renal disease, chronic kidney disease stage 4, diabetes type 2, secondary hyperparathyroidism of renal origin, noncompliance with medical treatment. PRIMARY PROCEDURE/OPERATION: None. RADIOLOGICAL INVESTIGATION: None. SIGNIFICANT LABORATORY: WBC 7.0, hemoglobin 9.2, platelets 146, sodium 137, potassium 4.7, BUN 41, creatinine 5.05, glucose 138, calcium 7.8, phosphorus 5.1 , albumin 2.8, AST 14, ALT 10, alkaline phosphatase 61, albumin 2.8. PTH 172. Vitamin D level is 13. Urinalysis showing proteinuria, protein creatinine ratio showing nephrotic range proteinuria. DISCHARGE MEDICATIONS: Allopurinol 100 mg p.o. daily, aspirin 81 mg p.o. daily , calcitriol 0.25 mcg p.o. daily, PhosLo 1334 mg p.o. t.i.d. with meals, Tums 1000 mg p.o. b.i.d., Coreg 12.5 mg p.o. b.i.d., vitamin D3 1000 units p.o. daily , ferrous sulfate 325 mg p.o. daily, Lasix 40 mg p.o. b.i.d., Imdur 30 mg p.o. daily, pravastatin 20 mg p.o. at bedtime, sodium bicarbonate 325 mg p.o. b.i.d. , hydralazine 25 mg p.o. t.i.d. CONTRAINDICATIONS: Patient is not on SANTIAGO inhibitor because of advanced renal insufficiency and that is why contraindicated, but instead the patient is on hydralazine mononitrate regimen. INPATIENT CONSULTANTS: Dr. Stephen was following for renal failure and he was not thinking that this patient needs any dialysis. TEST RESULTS PENDING ON DISCHARGE: None. ALLERGIES: No known drug allergy. DISCHARGE PLAN: Post hospital, the patient will follow up with Dr. Stephen, [facility] in [place] on 06/18/2017 at 10:00 a.m. The patient will follow up with [facility], Dr. Ram and Dr. Stephen. HOSPITAL COURSE: A 61-year-old male who has diagnosis of congestive heart failure who was not taking any medication because he ran out of medication and he cannot afford to follow up with the primary care physician. He was brought to hospital for increasing shortness of breath. He was having orthopnea, bilateral lower extremity edema and he was having heaviness in chest. He was diagnosed with acute on chronic systolic and diastolic congestive heart failure. He was hypertensive on arrival. This patient was admitted to telemetry floor. We treated him with IV Lasix with significant improvement. This patient also has acute on chronic kidney failure and his baseline chronic kidney disease stage 4. This patient's renal function is gradually getting worse because of his underlying diabetic nephropathy. He does not need any emergent dialysis at this point and Dr. Stephen was following while in the hospital. He does have underlying metabolic acidosis, anemia of renal disease, secondary hyperparathyroidism of renal origin, hypocalcemia, hyperuricemia and for all these problems we started treatment today. Today we are arranging for medication assistance with help of medication assistance program. At this point, patient is medically stable. He is on room air. He is ambulatory by himself. As he does not need any dialysis and now he is medically stable with the current treatment we are discharging with the above- mentioned medications. Necessary medication assistance was provided at [facility]. PHYSICAL EXAMINATION: Patient is seen and examined at bedside today. Necessary dietary education given to him. VITAL SIGNS: Currently temperature 98.8, pulse 70, respiratory rate 16, saturation 97%, blood pressure 173/83. Weight 165 pound. GENERAL: The patient is currently alert, awake, no acute distress. HEAD: Normocephalic, atraumatic. EYES: Pupils round, reactive to light. Extraocular muscles intact. ENT: Oropharynx within normal limits. Moist mucous membranes. No oral lesions. No pharyngeal erythema, no exudates. NECK: Supple, range of motion is normal. No meningeal signs of irritation. LUNGS: Clear to auscultation without any rhonchi or rales. CARDIAC: S1, S2 regular without any murmur. ABDOMEN: Soft and benign without any tenderness. EXTREMITIES: No edema. NEUROLOGIC: Nonfocal examination. Overall, this patient is medically stable for discharge today. Total time spent on discharge day more than 30 minutes. MTDD
[2017-06-15] MEDS: Furosemide 20 MG TAB PO SCH ×2 (10:59→14:26)
[2017-06-15] MEDS: Heparin 5,000 UNITS/ML VIAL SC SCH (12:15)
[2017-06-15] MEDS ORDERED: Carvedilol 6.25 MG TAB PO SCH (17:00)
== END 2017-06-15 14:45 | disposition home or self-care (01) | DRG 291 ==
LOC: ERS 06:10 → 2NO 06:36 → T4-B 06-14 19:37
PROVIDERS: ADMIT Internal Medicine; ATTEND Internal Medicine
DX: I13.0 Hypertensive heart and chronic kidney disease with heart failure and stage 1 through stage 4 chronic kidney disease, or unspecified chronic kidney disease (principal); I50.43 Acute on chronic combined systolic (congestive) and diastolic (congestive) heart failure; E87.2 Acidosis; E11.21 Type 2 diabetes mellitus with diabetic nephropathy; N17.9 Acute kidney failure, unspecified; N18.4 Chronic kidney disease, stage 4 (severe); N25.81 Secondary hyperparathyroidism of renal origin; Z23 Encounter for immunization; E55.9 Vitamin D deficiency, unspecified; E11.22 Type 2 diabetes mellitus with diabetic chronic kidney disease; E83.51 Hypocalcemia; E79.0 Hyperuricemia without signs of inflammatory arthritis and tophaceous disease; D63.1 Anemia in chronic kidney disease; Z91.14 Patient's other noncompliance with medication regimen; I16.0 Hypertensive urgency; T50.1X6A Underdosing of loop [high-ceiling] diuretics, initial encounter; Z91.120 Patient's intentional underdosing of medication regimen due to financial hardship; E78.5 Hyperlipidemia, unspecified; Z87.891 Personal history of nicotine dependence; R09.02 Hypoxemia; E87.5 Hyperkalemia
CPT/HCPCS: 36415; 36416; 80053; 80069; 81001; 82306; 82570; 83970; 84100; 84156; 84550; 85025; 90471; 90682; 93005; 93798; 94640; 96374; A4216; G0008; J0360; J1644; J1940; J7620; Q2036

== ENCOUNTER 2017-06-30 19:56 | Inpatient (IN) | payer MEDICAID, SELFPAY ==
[2017-06-30] MEDS ORDERED: Nitroglycerin 50 MG/250 ML BOT 250 ML ONE (20:31)
[2017-06-30 20:41] LABS: #Eosinphils 0.5 thou/uL (0.0-0.7); #Lymphocytes 0.9 thou/uL (1.20-3.40); #Monocytes 0.3 thou/uL (0.11-0.59); #Neutrophils 5.9 thou/uL (1.40-6.50); %Basophils 0.1 % (0.0-1.0); Hematocrit 30.2 % (42.0-52.0); Red Blood Cell (RBC) Count 3.32 mill/uL (4.70-6.10); White Blood Cell (WBC) Count 7.6 thou/uL (4.8-10.8)
[2017-06-30 20:46] LABS: PTT 33.1 SEC (22.9-36.1)
--- NOTE | 2017-06-30 20:49 | RAD ---
UPRIGHT PORTABLE CHEST ONE VIEW: 06/30/17 HISTORY: 61-year-old male with chest pain and shortness of breath. COMPARISON: 06/12/17 FINDINGS: Bilateral vascular congestion with some increased linear and interstitial markings bilaterally liliana rning for some interstitial pulmonary edema. Right pleural effusion appears to be near from the prio r study. No overt confluent process. IMPRESSION: Evidence for some bilateral interstitial edema and right pleural effusion raising concern for conges tive heart failure. Short term followup for clearing or stability suggested. POS: DEBORA
[2017-06-30 21:02] LABS: ALT (SGPT) 19 U/L (8-55); AST (SGOT) 32 U/L (5-34); Alkaline Phosphatase 120 U/L (40-150); Anion Gap 16 mmol/L (10-20); BUN (Urea Nitrogen) 39 mg/dL (8.4-25.7); Bilirubin, Total 0.3 mg/dL (0.2-1.2); CK (CPK) 60 U/L (30-200); Calc. Creatinine Clearance 0 mL/min (70-130); Calcium 8.2 mg/dL (7.8-10.44); Carbon Dioxide 19 mmol/L (22-29); Chloride 113 mmol/L (98-107); Estimated GFR-MDRD 11; Globulin 4.2 g/dL (2.4-3.5); Lipase 63 U/L (8-78); Magnesium 1.9 mg/dL (1.6-2.6); Protein, Total 7.2 g/dL (6.0-8.3)
[2017-06-30 21:06] LABS: Troponin I Less than 0.010 ng/mL (< 0.028)
[2017-06-30] MEDS ORDERED: Furosemide 100 MG/10 ML VIAL ONE (22:11)
[2017-06-30 23:02] LABS: Modified Allen's Test POSITIVE; Pressure Support 10 cmH2O; Sodium 142 mmol/L (135-148); Vent NO
[2017-06-30 23:03] LABS: Mode BIPAP
--- NOTE | 2017-06-30 23:07 | PDOC.EVN ---
Event Note - Event Note Event Note: [id number] H&p dictated 1. Acute respirtaory failure 2. Pulmonary edema 3. HTN uncontrolled 4. Metabolic acidosis 5. Hyperkalemia 6. DM type 2 plan see orders
[2017-06-30] MEDS ORDERED: Nitroglycerin 100MG/250ML BOT IV SCH (23:45)
[2017-07-01 00:19] VITALS: BMI 28.8
[2017-07-01 00:22] LABS: Troponin I 0.023 ng/mL (< 0.028)
[2017-07-01] MEDS: Nitroglycerin 50 MG/250 ML BOT 250 ML IVPB SCH ×2 (01:04→07:10)
[2017-07-01 04:45] LABS: Troponin I 0.024 ng/mL (< 0.028)
[2017-07-01] MEDS ORDERED: Sodium Bicarbonate Tab 325 MG TAB PO SCH (06:00)
--- NOTE | 2017-07-01 06:41 | HP ---
DATE OF ADMISSION: 06/30/2017 CHIEF COMPLAINT: Chest pain and dyspnea. HISTORY OF PRESENT ILLNESS: Patient is a 61-year-old male with past medical history of hypertension; hyperlipidemia; CKD, stage 4, chronic systolic and diastolic heart failure; now came to the hospital because of trouble breathing and chest pain, dyspnea started yesterday, slowly got worse. Patient's breathing got worse today, accompanied by chest pain also, chest pain is substernal, pressure kind of pain, tightness kind, moderate in intensity. Denies any radiation. Denies any cough, denies sputum production, denies any fever, denies any chills, denies any nausea, denies any vomiting. Patient also complains of decreased urine output last two days. Patient speaks [place], spoke with the patient through the . Denies any dizziness, denies any lightheadedness. Patient just got discharged from the hospital on the with the diagnosis of acute on chronic systolic heart failure. Denies any fever , denies any chills. Upon patient arrival, patient was found to be hypoxic, so patient was placed on BiPAP and the patient does started on nitro drip also due to elevated blood pressure. PAST MEDICAL HISTORY: As per HPI. PAST SURGICAL HISTORY: None. SOCIAL HISTORY: Denies smoking, denies alcohol, denies any drugs. FAMILY HISTORY: Positive for heart problems. REVIEW OF SYSTEMS: Constitutional: Denies any fever, denies any chills. Eyes : Denies any vision problems. Ears: Denies any hearing loss. Neck: Denies any neck pain. Cardiovascular system: Positive for chest pain. Respiratory system: Positive for dyspnea. Gastrointestinal: Denies nausea, vomiting. Genitourinary: Denies dysuria. Musculoskeletal: Denies any joint deformities. Integumentary: Denies any rash. Cranial nerve system: Denies syncope, denies lightheadedness. All other review of systems are reviewed and are negative. PHYSICAL EXAMINATION: CONSTITUTIONAL/VITAL SIGNS: At the time of H\T\P performed, blood pressure is 200/110, afebrile, pulse ox 97% on BiPAP. GENERAL: The patient appears tired. HEENT: Anterior nares patent. Nose normal. Ears normal. Teeth intact. Tongue is moist. NECK: Supple, no JVD. CARDIOVASCULAR SYSTEM: S1, S2 present. Regular rate and rhythm, no murmurs, no rubs, no gallops. RESPIRATORY SYSTEM: Positive for crackles, diminished breath sounds present. No wheezing, no rhonchi. GASTROINTESTINAL: Abdomen is soft, nontender, no guarding, no organomegaly, no masses felt. MUSCULOSKELETAL: No edema. CRANIAL NERVE SYSTEM: Awake, follows commands. Strength intact, sensory intact. PSYCHIATRIC: Mood is appropriate at this time. LABORATORY DATA: At the time of H\T\P performed sodium 142, potassium 5.6, chloride 113, CO2 of 19, BUN 39, creatinine of 5.49, BNP 3574, albumin 3. White count 7.6, hemoglobin 10.1, platelet count is 281. PT 14, INR 1.1. Chest x-ray positive for pulmonary edema. ASSESSMENT AND PLAN: Patient is a 61-year-old male: 1. Acute respiratory failure. Plan to start patient on BiPAP. Monitor respiratory status closely. Plan to admit patient to the ICU for close monitoring. 2. Pulmonary edema plus acute fluid overload. Plan to start patient on IV Lasix drip. Plan to consult Nephrology for possible initiation on dialysis also. 3. Hypertension, uncontrolled. Continue nitroglycerin drip. Monitor blood pressure closely. Continue home medications. 4. Metabolic acidosis. Monitor bicarb. Start p.o. bicarbonate. 5. Hyperkalemia, mild. Plan to give a dose of Kayexalate. 6. History of diabetes mellitus, type 2. Monitor blood sugars. We will do insulin sliding scale. Case was discussed in detail with the patient and patient's also. MARTIN
[2017-07-01] MEDS: Carvedilol 25 MG TAB PO SCH ×2 (07:09→16:38)
[2017-07-01 07:43] LABS: #Eosinphils 0.3 thou/uL (0.0-0.7); #Lymphocytes 0.7 thou/uL (1.20-3.40); #Monocytes 0.4 thou/uL (0.11-0.59); #Neutrophils 5.9 thou/uL (1.40-6.50); %Basophils 0.3 % (0.0-1.0); %Eosinophils 3.6 % (0.0-10.0); %Lymphocytes 8.9 % (21.0-51.0); %Monocytes 5.9 % (0.0-10.0); Mean Platelet Volume 7.6 fL (7.4-10.4); Red Blood Cell (RBC) Count 2.64 mill/uL (4.70-6.10); White Blood Cell (WBC) Count 7.3 thou/uL (4.8-10.8)
[2017-07-01 08:03] LABS: Anion Gap 15 mmol/L (10-20); BUN (Urea Nitrogen) 40 mg/dL (8.4-25.7); Calc. Creatinine Clearance 15 mL/min (70-130); Calcium 7.6 mg/dL (7.8-10.44); Carbon Dioxide 18 mmol/L (22-29); Chloride 113 mmol/L (98-107); Estimated GFR-MDRD 10
[2017-07-01] MEDS: Ferrous Sulfate 325 MG TAB PO SCH (08:39)
[2017-07-01] MEDS: Calcitriol 0.25 MCG CAP PO SCH (08:39)
[2017-07-01] MEDS: Allopurinol 100 MG TAB PO SCH (08:39)
[2017-07-01] MEDS: Calcium Carbonate 500 MG ChewTAB PO SCH ×2 (08:39→20:21)
[2017-07-01] MEDS: Calcium Acetate 667 MG CAP PO SCH ×3 (08:39→16:37)
[2017-07-01] MEDS ORDERED: hydrALAZINE 25 MG TAB PO SCH ×2 (09:00→09:20)
--- NOTE | 2017-07-01 09:09 | RAD ---
PORTABLE CHEST: Date: 07/01/17 HISTORY: CHF. COMPARISON: 06/30/17. FINDINGS/IMPRESSION: Heart size is mildly prominent. The lungs are well aerated. There has been improvement in the appear ance of the congestive changes when compared to yesterday. Vascular and interstitial congestive valenzuela ges are less pronounced today. POS: JÚNIOR
--- NOTE | 2017-07-01 11:44 | PDOC.PN ---
- Subjective Encounter Start Date: 07/01/17 Encounter Start Time: 10:00 Subjective: no chest pain or sob now -: feels better, is off bipap and nitro drip now - Objective MAR Reviewed: Yes Vital Signs & Weight: Vital Signs (12 hours) Temp Pulse Resp BP Pulse Ox 07/01/17 09:27 86 152/91 H 07/01/17 07:51 98.4 F 77 20 95 07/01/17 07:10 77 163/85 H 07/01/17 07:00 98.4 F 07/01/17 04:00 98.7 F 07/01/17 02:33 77 07/01/17 01:40 98.4 F 78 20 99 07/01/17 00:00 98.4 F Weight Admit Weight 167 lb 8.821 oz Weight 167 lb 8.821 oz Most Recent Monitor Data Heart Rate from ECG 77 NIBP 158/79 NIBP BP-Mean 120 Respiration from ECG 17 SpO2 96 I&O: 06/30/17 07/01/17 07/02/17 06:59 06:59 06:59 Intake Total 444 202.4 Output Total 1050 300 Balance -606 -97.6 Result Diagrams: 07/01/17 03:59 07/01/17 03:59 Additional Labs: Accuchecks 07/01/17 00:17 POC Glucose 133 H Phys Exam - Physical Examination HEENT: PERRLA, moist MMs Neck: no JVD, supple Respiratory: no wheezing, no rales Cardiovascular: RRR, no significant murmur Gastrointestinal: soft, non-tender, positive bowel sounds Musculoskeletal: no edema, pulses present Neurological: non-focal, moves all 4 limbs Psychiatric: A&O x 3 Dx/Plan (1) Acute on chronic combined systolic and diastolic congestive heart failure Code(s): I50.43 - ACUTE ON CHRONIC COMBINED SYSTOLIC AND DIASTOLIC HRT FAIL Status: Acute (2) Acute worsening of stage 4 chronic kidney disease Code(s): N28.9 - DISORDER OF KIDNEY AND URETER, UNSPECIFIED; N18.4 - CHRONIC KIDNEY DISEASE, STAGE 4 (SEVERE) Status: Acute (3) Hyperuricemia Code(s): E79.0 - HYPERURICEMIA W/O SIGNS OF INFLAM ARTHRIT AND TOPHACEOUS DIS Status: Chronic (4) Metabolic acidosis Code(s): E87.2 - ACIDOSIS Status: Acute (5) Anemia of renal disease Code(s): D63.1 - ANEMIA IN CHRONIC KIDNEY DISEASE Status: Chronic (6) CKD (chronic kidney disease) stage 4, GFR 15-29 ml/min Code(s): N18.4 - CHRONIC KIDNEY DISEASE, STAGE 4 (SEVERE) Status: Chronic (7) DM type 2 (diabetes mellitus, type 2) Status: Chronic Qualifiers: Diabetes mellitus complication status: with kidney complications Diabetes mellitus complication detail: with chronic kidney disease Diabetes mellitus custodial insulin use: without custodial use Chronic kidney disease stage: stage 4 (severe) Qualified Code(s): E11.22 - Type 2 diabetes mellitus with diabetic chronic kidney disease; N18.4 - Chronic kidney disease, stage 4 (severe ); N18.4 - Chronic kidney disease, stage 4 (severe); N18.4 - Chronic kidney disease, stage 4 (severe); N18.4 - Chronic kidney disease, stage 4 (severe) - Plan is of bipap and nitro drip now -: tx to telemetry -: will need HD to be started -: selected home meds -: has been consulted * . Review of Systems - Medications/Allergies Allergies/Adverse Reactions: Allergies Allergy/AdvReac Type Severity Reaction Status Date / Time No Known Drug Allergies Allergy Verified 12/29/16 23:47 Medications: Current Medications Allopurinol (Zyloprim) 100 mg PO DAILY [facility] Last Admin: 07/01/17 08:39 Dose: 100 mg Aspirin (Aspirin Chewable) 81 mg PO DAILY [facility] Last Admin: 07/01/17 08:39 Dose: 81 mg Calcitriol (Rocaltrol) 0.25 mcg PO DAILY [facility] Last Admin: 07/01/17 08:39 Dose: 0.25 mcg Calcium Acetate (Phoslo) 1,334 mg PO TID-[facility] Last Admin: 07/01/17 08:39 Dose: 1,334 mg Calcium Carbonate (Tums) 1,000 mg PO BID [facility] Last Admin: 07/01/17 08:39 Dose: 1,000 mg Carvedilol (Coreg) 12.5 mg PO BID-[facility] Last Admin: 07/01/17 07:09 Dose: 12.5 mg Ferrous Sulfate (Feosol) 325 mg PO QAM-[facility] Last Admin: 07/01/17 08:39 Dose: 325 mg Hydralazine HCl (Apresoline) 50 mg PO TID [facility] Hydralazine HCl (Apresoline) 50 mg PO NOW [facility] Stop: 07/01/17 12:00 Last Admin: 07/01/17 09:27 Dose: 50 mg Isosorbide Mononitrate (Imdur Er) 30 mg PO DAILY [facility] Last Admin: 07/01/17 07:10 Dose: 30 mg Simvastatin (Zocor) 10 mg PO [facility]
--- NOTE | 2017-07-01 12:29 | CON ---
DATE OF CONSULTATION: 07/01/2017 REASON FOR CONSULTATION: Pulmonary edema, hypertension, and end-stage renal disease. HISTORY OF PRESENT ILLNESS: Mr. Posada is a 61-year-old man. He is a patient of Dr. Lico aden. The patient was admitted to the hospital with congestive heart failure in the Spring. He was found to have ejection fraction in the 35-40% range with heart failure, also what was thought to be acute kidney injury. Patient states that he had progressive difficulty breathing, which worsened to the point where he was extremely short of breath and came to the emergency room. He did not have c hest pain. In the emergency room, he was found to be in pulmonary edema. He was given 160 mg of La six. Unfortunately, he had some urinary output, 1 liter last night, also given intravenous nitrogly cerin. With this combination, his symptoms improved. He was on BiPAP. Fortunately, he is able to be avoided going on ventilator and he is off the BiPAP this morning feeling better. The patient now is awake and alert, feeling better. The chest x-ray this morning shows improvement in the pulmonary edema to my interpretation. The patient is currently pain free and is breathing much better. MEDICATIONS: 1. The patient at home was taking Lasix 40 mg twice a day. 2. Aspirin. 3. Nitroglycerin was given here. 4. Hydralazine 25 mg 3 times daily. 5. Isosorbide mononitrate 30 mg a day. 6. Simvastatin 10 mg a day. 7. Iron. 8. He is also receiving sodium bicarbonate. ALLERGIES: None known. FAMILY HISTORY: Negative for heart disease at a young age. SOCIAL HISTORY: No alcohol or tobacco. REVIEW OF SYSTEMS: Obtained from the chart. Constitutional: No significant weight gain or loss. No fever or chills. Vision: No changes. Hearing: No changes. Pulmonary: Positive for shortness of breath. Cardiac: Positive for shortness of breath, no chest pain. Gastrointestinal: No nause a, vomiting, or diarrhea. Skin: No rashes. Neurologic: No unilateral weakness or numbness. Psyc hiatric: No unusual depression or anxiety. PAST MEDICAL HISTORY: 1. Hypertension. 2. Congestive heart failure. PHYSICAL EXAMINATION: VITAL SIGNS: Initial blood pressure was reported at 210/111, now the blood pressure is 130/90, puls e down to 83. EYES: Sclerae nonicteric. Mouth mucous membranes moist. NECK: Supple, no lymphadenopathy. LUNGS: Clear. No wheezing, rales or rhonchi. CARDIOVASCULAR: Normal S1, normal S2. There is no murmur, rub or gallop. ABDOMEN: Soft, nontender. No hepatosplenomegaly. EXTREMITIES: Warm, dry. No clubbing or cyanosis. There is no edema. PERTINENT LABORATORY AND X-RAY FINDINGS: Potassium is 5.4. BNP 3574. Estimated GFR is 10. His IN R is 1.1. The troponin is 0.023 and 0.024. ASSESSMENT: 1. Congestive heart failure, systolic, acute on chronic, improved. 2. What appears to be end-stage renal disease. 3. Hypertension. 4. Hyperkalemia. PLAN: 1. Increase hydralazine. 2. Stop sodium bicarbonate in view of the heart failure. I do not think he can tolerate the sodium load. 3. Consult Nephrology to see if dialysis is appropriate. 4. We will Increase hydralazine.
[2017-07-01] MEDS ORDERED: Metolazone 2.5 MG TAB PO SCH (12:45)
[2017-07-01] MEDS: Furosemide 100 MG/10 ML VIAL SLOW IVP SCH (13:53)
[2017-07-01 15:41] LABS: Anion Gap 15 mmol/L (10-20); BUN (Urea Nitrogen) 40 mg/dL (8.4-25.7); Calc. Creatinine Clearance 14 mL/min (70-130); Calcium 7.8 mg/dL (7.8-10.44); Carbon Dioxide 21 mmol/L (22-29); Chloride 112 mmol/L (98-107); Estimated GFR-MDRD 10
--- NOTE | 2017-07-01 15:45 | CON ---
DATE OF CONSULTATION: 07/01/2017 REASON FOR CONSULTATION: Elevated creatinine and hyperkalemia. HISTORY OF PRESENTING ILLNESS: This is a very pleasant 61-year-old gentleman who presented to the [facility] for chest pain and dyspnea. The patient's creatinine increased to 5.5 from a baseline of 5. 4. The patient denies any headache, numbness, tingling or weakness. Denies any excessive salt or p otassium intake. The patient's last renal ultrasound was in December, which did not show any hydroneph rosis. PAST MEDICAL HISTORY: Significant for hypertension, hyperlipidemia, CKD stage 5, heart failure, hyp erkalemia and acidosis. SOCIAL HISTORY: No alcohol or drug use. FAMILY HISTORY: Negative for ESRD. REVIEW OF SYSTEMS: A 15-point review of systems was performed and was negative except for positives noted above. GENERAL: Weakness. HEAD: Headache. NECK: No swelling or lumps. NOSE: No epistaxis or discharge. EYES: No diplopia or pain. RESPIRATORY: Dyspnea. CARDIOVASCULAR: Chest pain. GASTROINTESTINAL: Nausea. /SENIOR NET C DEVELOPER: Hematuria. MUSCULOSKELETAL: No joint pain. NEUROPSYCHIATIC SYSTEMS: No suicidal ideation. No ideation. SKIN: Denies any rash or ulcer. CONSTITUTIONAL: No fever or chills. PHYSICAL EXAMINATION: GENERAL: Patient is awake, alert, in no acute distress. VITAL SIGNS: Afebrile, pulse 86, breathing at 16, blood pressure 173/87. GENERAL APPEARANCE AND MENTAL STATUS: Fair. HEAD/NECK: Normocephalic. Atraumatic. EYES: EOMI. No deformity. EARS: Clear. No ulcers. NOSE: Intact. No lesions. MOUTH: Clear. No discharge. THROAT: Clear. No exudate. LUNGS: Clear. No crackles. CARDIAC: S1, S2. No rub. ABDOMEN: Benign. BS+. GENITALIA/RECTUM: Teague absent. BACK/EXTREMITIES: Lower extremities have 3+ edema. NEUROLOGICAL: Alert and motor intact. SKIN: Rash- Bruise. LYMPHATICS: Edema- Ulcer. LABORATORY DATA: Hemoglobin 7.9, creatinine is 5.5. ASSESSMENT AND RECOMMENDATIONS: 1. Stage 5 chronic kidney disease. No urgent indication for dialysis. 2. Metabolic acidosis. We will start sodium bicarbonate. 3. Hyperkalemia. We will give Kayexalate. 4. Edema. We will start Lasix 80 mg q.12 hours. All the above findings were discussed with the patient and all questions were answered.
--- NOTE | 2017-07-01 16:20 | CON ---
DATE OF CONSULTATION: 07/01/2017 HISTORY OF PRESENT ILLNESS: Mr. Zepeda is a 61-year-old [place]orese speaking male, who presented with s hortness of breath. He has significant hypertension with a blood pressure over 220 in the emergency department. He has known decreased ejection fraction. He was diuresed and placed on BiPAP and improved, he is off BiPAP when I saw him. 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 SOCIAL HISTORY: He is nonsmoker and nondrinker. FAMILY HISTORY: Negative for lung disease at an early age. REVIEW OF SYSTEMS: Otherwise, 10-point negative. PHYSICAL EXAMINATION: VITAL SIGNS: His heart rate is 82, respiratory rate is 18, blood pressure mildly elevated 173/87, a nd oximetry is 97. He is on room air. NECK: Unremarkable. LUNGS: Clear. HEART: Regular rhythm. S1 and S2 are normal. ABDOMEN: Soft. EXTREMITIES: Without asymmetry. LABORATORY DATA: White count 7.3, hemoglobin dropped to 7.9, and platelets 216,000. Sodium 141, po tassium 5.4, chloride 113, bicarbonate 18, BUN 40, creatinine 5.5, glucose 131. IMPRESSION: 1. Volume overload. 2. Chronic kidney disease. 3. Borderline hyperkalemia. 4. Hyperchloremic acidosis associated with his chronic kidney disease. 5. Hypoalbuminemia. 6. History of a nonsystolic cardiomyopathy. It is reasonable for him to move to telemetry unit, he will need to be followed by the nutrition services aide. He is probably getting close to being a dialysis candidate.
[2017-07-01] MEDS: hydrALAZINE 25 MG TAB PO SCH ×2 (16:39→20:21)
[2017-07-01] MEDS: Sodium Bicarbonate Tab 325 MG TAB PO SCH ×2 (16:42→20:22)
[2017-07-01] MEDS ORDERED: DOBUTamine 500 mg/250 ml 250 ML IVPB SCH (17:44)
--- NOTE | 2017-07-01 18:08 | CON ---
DATE OF CONSULTATION: 07/01/2017 HISTORY OF PRESENT ILLNESS: The patient is a 61-year-old male who was in normal state of h ealth until a few days prior to admission when he developed shortness of breath and dyspnea on exert ion. He was noted to be anemic and his hemoglobin dropped from 10 to 7. He has had no melena or he matochezia, no abdominal pain, no nausea, vomiting, no weight loss. He had a fecal occult blood kali t was negative. PAST MEDICAL HISTORY: Significant for hypertension, hyperlipidemia, chronic kidney disease and gopal estive heart failure. PAST SURGICAL HISTORY: None. SOCIAL HISTORY: Does not smoke or drink. FAMILY HISTORY: Negative for GI or liver disease. MEDICATIONS ON ADMISSION: Include hydralazine 25 mg p.o. t.i.d., sodium bicarbonate 325 mg p.o. b.i .d., pravastatin 20 mg p.o. at bedtime, isosorbide mononitrate 30 mg p.o. q. day, Lasix 40 mg p.o. q . day, iron 325 mg p.o. q. day, vitamin D, Coreg 12.5 mg p.o. b.i.d. Tums 1000 mg p.o. b.i.d., folic flow 1300 mg p.o. t.i.d., calcitriol 0.25 mcg p.o. daily, aspirin 81 mg p.o. daily and allopurinol 100 mg p.o. daily. ALLERGIES: No known allergies. REVIEW OF SYSTEMS: Ten systems were reviewed and were negative except for above. PHYSICAL EXAMINATION: VITAL SIGNS: Shows a pulse of 63, respiratory rate 20, blood pressure 137/81 and temperature 98.4. HEENT: Unremarkable. NECK: Supple. CHEST: Clear. CARDIOVASCULAR: Regular rate and rhythm without murmurs or gallops. ABDOMEN: Soft and nontender, without organomegaly or masses. RECTAL: Deferred. EXTREMITIES: Normal. NEUROLOGIC: Nonfocal. LABORATORY DATA: Admission hemoglobin 10.1 and it dropped to 7.9, MCV is 91 and platelet count 216. PT is 14.1 with an INR of 1.1. Chemistries on admission showed a potassium of 5.6, CO2 of 19, BUN 39, creatinine 5.49, glucose 120, albumin 3.0. BNP is 3500. IMAGING DATA: Chest x-ray showed heart size to be mildly prominent. Vascular and interstitial gopal estion changes are less pronounced than before. ASSESSMENT: 1. Anemia - I suspect this is anemia of chronic disease secondary to the patient's renal failure. Hemoccult is negative. He has had no signs of bleeding. 2. Chronic renal failure. 3. History of congestive heart failure. RECOMMENDATIONS: 1. Continue to monitor hemoglobin and hematocrit. 2. Full set of Hemoccult x3. 3. May consider outpatient endoscopy.
[2017-07-01] MEDS: Simvastatin 20 MG TAB PO SCH (20:22)
[2017-07-01] MEDS ORDERED: Furosemide 100 MG/10 ML VIAL SLOW IVP SCH (21:00)
[2017-07-02 04:10] LABS: #Eosinphils 0.3 thou/uL (0.0-0.7); #Monocytes 0.4 thou/uL (0.11-0.59); #Neutrophils 3.1 thou/uL (1.40-6.50); %Basophils 0.4 % (0.0-1.0); %Eosinophils 6.3 % (0.0-10.0); %Lymphocytes 19.8 % (21.0-51.0); Hematocrit 24.8 % (42.0-52.0); Mean Platelet Volume 7.7 fL (7.4-10.4); Red Blood Cell (RBC) Count 2.73 mill/uL (4.70-6.10); White Blood Cell (WBC) Count 4.8 thou/uL (4.8-10.8)
[2017-07-02 04:32] LABS: Anion Gap 14 mmol/L (10-20); BUN (Urea Nitrogen) 44 mg/dL (8.4-25.7); BUN/Creatinine Ratio 7.05; Calc. Creatinine Clearance 14 mL/min (70-130); Calcium 7.9 mg/dL (7.8-10.44); Carbon Dioxide 24 mmol/L (22-29); Chloride 109 mmol/L (98-107); Estimated GFR-MDRD 9; Phosphorus 5.4 mg/dL (2.3-4.7)
[2017-07-02] MEDS: Furosemide 100 MG/10 ML VIAL SLOW IVP SCH ×2 (05:09→14:42)
[2017-07-02] MEDS: hydrALAZINE 25 MG TAB PO SCH ×3 (08:28→20:16)
[2017-07-02] MEDS: Ferrous Sulfate 325 MG TAB PO SCH (08:28)
[2017-07-02] MEDS: Calcium Acetate 667 MG CAP PO SCH ×3 (08:28→17:39)
[2017-07-02] MEDS: Allopurinol 100 MG TAB PO SCH (08:29)
[2017-07-02] MEDS: Calcium Carbonate 500 MG ChewTAB PO SCH ×2 (08:29→20:12)
[2017-07-02] MEDS: Calcitriol 0.25 MCG CAP PO SCH (08:29)
[2017-07-02] MEDS: Sodium Bicarbonate Tab 325 MG TAB PO SCH ×2 (10:54→14:54)
--- NOTE | 2017-07-02 11:21 | PRG ---
DATE OF SERVICE: 07/02/2017 SUBJECTIVE: The patient is without complaints, without GI complaints. OBJECTIVE: VITAL SIGNS: Temperature is 98.3, pulse 34, blood pressure 184/91, respiratory rate 17. CHEST: Clear. CARDIOVASCULAR: Regular rate and rhythm. ABDOMEN: Benign. LABORATORY DATA: Shows hemoglobin 8.2, hematocrit 24.8. Chemistries show a BUN of 44, creatinine 6 .24, glucose 131. ASSESSMENT: 1. Anemia - secondary to chronic disease. 2. End-stage renal disease. RECOMMENDATIONS: 1. We may consider outpatient endoscopy once the patient is stable and on hemodialysis. 2. We will sign off.
--- NOTE | 2017-07-02 12:21 | PDOC.CTH ---
Cardiology Progress Note - Subjective His breathing is back to normal. No chest pain , tightness ,pressure, SOB. - Objective Vital Signs Temp Pulse Resp BP Pulse Ox 07/02/17 08:28 64 179/76 H 07/02/17 08:00 98.3 F 64 18 98 07/02/17 04:00 98.6 F Admit Weight 167 lb 8.821 oz Weight 167 lb 8.821 oz 07/01/17 07/02/17 07/03/17 06:59 06:59 06:59 Intake Total 444 1157.4 275 Output Total 1050 1500 925 Balance -606 -342.6 -650 - Physical Examination General/Neuro: alert & oriented x3, NAD Neck: no JVD present Lungs: unlabored respirations Heart: RRR Abdomen: NT/ND Extremities: other: (no edema) - Telemetry Telemetry Rhythm: NSR - Labs Result Diagrams: 07/02/17 03:36 07/02/17 03:36 Troponin/CKMB CK-MB (CK-2) 3.5 ng/mL (0-6.6) 06/30/17 20:30 Troponin I 0.024 ng/mL (< 0.028) 07/01/17 03:59 - Assessment/Plan 1. Acute on chronic systolic dysfunction 2. CKD stage 5 3. Non compliance 4. HTN malignant3 5. EF at 40% PLAN: - Will switch lasix to PO. - Continue hydralazine at 50mg TID and will increase nitrate. - Will restart Coreg at lower dose. - Not a candidate for an AICD. - Normal stress test on last visit. - No plan for dialysis for now.
[2017-07-02] MEDS ORDERED: hydrALAZINE 25 MG TAB PO SCH ×2 (12:24→21:00)
--- NOTE | 2017-07-02 14:54 | PDOC.PN ---
- Subjective Encounter Start Date: 07/02/17 Encounter Start Time: 10:00 Subjective: no sob, feels better - Objective MAR Reviewed: Yes Vital Signs & Weight: Vital Signs (12 hours) Temp Pulse Resp BP Pulse Ox 07/02/17 12:00 98.2 F 07/02/17 08:28 64 179/76 H 07/02/17 08:00 98.3 F 64 18 98 07/02/17 04:00 98.6 F Weight Admit Weight 167 lb 8.821 oz Weight 167 lb 8.821 oz Most Recent Monitor Data Heart Rate from ECG 68 NIBP 169/81 NIBP BP-Mean 129 Respiration from ECG 18 SpO2 95 I&O: 07/01/17 07/02/17 07/03/17 06:59 06:59 06:59 Intake Total 444 1157.4 575 Output Total 1050 1500 1125 Balance -606 -342.6 -550 Result Diagrams: 07/02/17 03:36 07/02/17 03:36 Additional Labs: Accuchecks 07/01/17 18:06 POC Glucose 159 H Phys Exam - Physical Examination HEENT: PERRLA, moist MMs Neck: no JVD, supple Respiratory: no wheezing, no rales Cardiovascular: RRR, no significant murmur Gastrointestinal: soft, non-tender, positive bowel sounds Musculoskeletal: no edema, pulses present Neurological: non-focal, moves all 4 limbs Psychiatric: A&O x 3 Dx/Plan (1) Acute on chronic combined systolic and diastolic congestive heart failure Code(s): I50.43 - ACUTE ON CHRONIC COMBINED SYSTOLIC AND DIASTOLIC HRT FAIL Status: Acute (2) Acute worsening of stage 4 chronic kidney disease Code(s): N28.9 - DISORDER OF KIDNEY AND URETER, UNSPECIFIED; N18.4 - CHRONIC KIDNEY DISEASE, STAGE 4 (SEVERE) Status: Acute (3) Hyperuricemia Code(s): E79.0 - HYPERURICEMIA W/O SIGNS OF INFLAM ARTHRIT AND TOPHACEOUS DIS Status: Chronic (4) Metabolic acidosis Code(s): E87.2 - ACIDOSIS Status: Acute (5) Anemia of renal disease Code(s): D63.1 - ANEMIA IN CHRONIC KIDNEY DISEASE Status: Chronic (6) CKD (chronic kidney disease) stage 4, GFR 15-29 ml/min Code(s): N18.4 - CHRONIC KIDNEY DISEASE, STAGE 4 (SEVERE) Status: Chronic (7) DM type 2 (diabetes mellitus, type 2) Status: Chronic Qualifiers: Diabetes mellitus complication status: with kidney complications Diabetes mellitus complication detail: with chronic kidney disease Diabetes mellitus fpc insulin use: without joint terminal attack controller use Chronic kidney disease stage: stage 4 (severe) Qualified Code(s): E11.22 - Type 2 diabetes mellitus with diabetic chronic kidney disease; N18.4 - Chronic kidney disease, stage 4 (severe ); N18.4 - Chronic kidney disease, stage 4 (severe); N18.4 - Chronic kidney disease, stage 4 (severe); N18.4 - Chronic kidney disease, stage 4 (severe) - Plan had brief episode of bradycardia on coreg last evening and had to be upgrad -: -ed to CCU on dobutamine, this has resolved completely, is off dobutamine -: is very close to HD, d/w to initiate HD to prevent further end -: organ injury, not sure if he has insurance/benefits for out pt HD set up -: Hb is holding up around 8g, hco3 around 24 this am * . Review of Systems - Medications/Allergies Allergies/Adverse Reactions: Allergies Allergy/AdvReac Type Severity Reaction Status Date / Time No Known Drug Allergies Allergy Verified 12/29/16 23:47 Medications: Current Medications Allopurinol (Zyloprim) 100 mg PO DAILY [facility] Last Admin: 07/02/17 08:29 Dose: 100 mg Aspirin (Aspirin Chewable) 81 mg PO DAILY [facility] Last Admin: 07/02/17 08:28 Dose: 81 mg Calcitriol (Rocaltrol) 0.25 mcg PO DAILY [facility] Last Admin: 07/02/17 08:29 Dose: 0.25 mcg Calcium Acetate (Phoslo) 1,334 mg PO TID-[facility] Last Admin: 07/02/17 11:30 Dose: 1,334 mg Calcium Carbonate (Tums) 1,000 mg PO BID [facility] Last Admin: 07/02/17 08:29 Dose: 1,000 mg Ferrous Sulfate (Feosol) 325 mg PO QAM-[facility] Last Admin: 07/02/17 08:28 Dose: 325 mg Furosemide (Lasix) 80 mg SLOW IVP 0600,1400 [facility] Last Admin: 07/02/17 14:42 Dose: 80 mg Hydralazine HCl (Apresoline) 50 mg PO BID [facility] Dobutamine HCl/Dextrose (Dobutamine 500 Mg/250 Ml) 250 mls @ 11.4 mls/hr IVPB INF [facility] PRN Reason: Protocol Nicardipine HCl 25 mg/ Sodium (Chloride) 260 mls @ 0 mls/hr IVPB INF [facility]; Titrate PRN Reason: Protocol Last Admin: 07/02/17 13:02 Dose: 260 mls Isosorbide Mononitrate (Imdur Er) 60 mg PO DAILY [facility] Simvastatin (Zocor) 10 mg PO HS [facility] Last Admin: 07/01/17 20:22 Dose: 10 mg Sodium Bicarbonate (Bicarbonate, Sodium) 975 mg PO TID [facility] Last Admin: 07/02/17 10:54 Dose: Not Given
--- NOTE | 2017-07-02 15:02 | PRG ---
DATE OF SERVICE: 07/02/2017 SUBJECTIVE: Mr. Zepeda is feeling better. He has family in the room to interpret. He says he is w illing to undergo dialysis if needed. OBJECTIVE: VITAL SIGNS: Blood pressure was up to 190 earlier, Gil palacios was ordered to shoot for a goal sy stolic blood pressure between 160 and 170, his heart rate was in the 60s, respiratory rate was 18. LUNGS: Clear. HEART: Regular rhythm. ABDOMEN: Soft. LABORATORY DATA: White count 4.8, hemoglobin 8.2, platelets 164. Sodium 143, potassium 4.4, chlori de 109, bicarbonate 24, BUN 44, and creatinine 6.24. IMPRESSION: 1. Probable near end-stage renal disease. 2. Hypertension. Suspect his renal function will continue to decline. Nephrology and Cardiology are following him as well as Gastroenterology. He appears stable from a pulmonary standpoint at this time.
[2017-07-02] MEDS ORDERED: Carvedilol 3.125 MG TAB PO SCH (17:00)
[2017-07-02] MEDS ORDERED: NIFEdipine XL 30 MG TAB PO SCH (19:30)
[2017-07-02] MEDS ORDERED: Epoetin (ESRD) 20,000 UNITS/ML SC SCH (19:30)
[2017-07-02] MEDS: Simvastatin 20 MG TAB PO SCH (20:13)
--- NOTE | 2017-07-02 22:52 | PRG ---
DATE OF SERVICE: 07/02/2017 SUBJECTIVE: Patient was seen and examined at bedside and overnight events noted. Patient denies an y shortness of breath or chest pain or palpitation. No history of nausea or vomiting or diarrhea or fever or chills or cramps. OBJECTIVE: GENERAL: This is a well-built male in no apparent distress. VITAL SIGNS: Temperature 98.5. Pulse 69. Respiratory rate . Blood pressure 193/87. HEENT: Atraumatic and normocephalic. Oral mucosa is moist. NECK: Supple. CARDIOVASCULAR: S1, S2 heard. Rate and rhythm regular. RESPIRATORY: Clear to auscultation. GASTROINTESTINAL: Abdomen is soft. MUSCULOSKELETAL: No tenderness. No edema. DERMATOLOGIC: No skin rash. NEUROLOGIC: Alert and awake and oriented x3. No focal neurologic deficits. Moving all the extremi ties. PSYCHIATRIC: Mood and affect normal. LABORATORY DATA: Potassium is 4.4, BUN is 44, creatinine 6.2. ASSESSMENT AND PLAN: 1. Acute kidney injury on chronic kidney disease stage V. Renal function continues to get worse. No acute indication for dialysis. Unfortunately, the patient is undocumented and unfunded, not able to give any funding for outpatient dialysis. Family is aware, I did talk with his and I also advised to follow with case management to explore options. No acute indication for dialysis. We wi ll continue to monitor. Avoid nephrotoxins, renally dose all the medicines. 2. Metabolic acidosis, stable and better. 3. Hyperkalemia, better. 4. Anemia, most likely from chronic kidney disease . 5. Hypertension. Blood pressure remains elevated. 6. Edema. Continue on Lasix for now. Plan is to do cut back on Lasix. We will change it to 40 mg of IV Lasix. Monitor renal function an d we will follow.
[2017-07-03 04:31] LABS: #Eosinphils 0.4 thou/uL (0.0-0.7); #Lymphocytes 0.8 thou/uL (1.20-3.40); #Monocytes 0.4 thou/uL (0.11-0.59); #Neutrophils 3.5 thou/uL (1.40-6.50); %Basophils 0.2 % (0.0-1.0); %Lymphocytes 15.8 % (21.0-51.0); %Monocytes 7.5 % (0.0-10.0); Mean Platelet Volume 7.3 fL (7.4-10.4); Red Blood Cell (RBC) Count 2.68 mill/uL (4.70-6.10); White Blood Cell (WBC) Count 5.1 thou/uL (4.8-10.8)
[2017-07-03 04:49] LABS: Anion Gap 14 mmol/L (10-20); BUN (Urea Nitrogen) 42 mg/dL (8.4-25.7); BUN/Creatinine Ratio 7.16; Calc. Creatinine Clearance 15 mL/min (70-130); Calcium 8.1 mg/dL (7.8-10.44); Carbon Dioxide 26 mmol/L (22-29); Chloride 104 mmol/L (98-107); Estimated GFR-MDRD 10; Phosphorus 4.9 mg/dL (2.3-4.7)
[2017-07-03] MEDS: Furosemide 100 MG/10 ML VIAL SLOW IVP SCH ×2 (05:25→15:14)
[2017-07-03] MEDS: Calcium Acetate 667 MG CAP PO SCH ×3 (07:57→16:48)
[2017-07-03] MEDS: Ferrous Sulfate 325 MG TAB PO SCH (07:57)
[2017-07-03] MEDS: Allopurinol 100 MG TAB PO SCH (07:58)
[2017-07-03] MEDS: Calcitriol 0.25 MCG CAP PO SCH (07:58)
[2017-07-03] MEDS: NIFEdipine XL 30 MG TAB PO SCH (07:59)
[2017-07-03] MEDS: Calcium Carbonate 500 MG ChewTAB PO SCH ×2 (09:08→20:35)
[2017-07-03] MEDS: hydrALAZINE 25 MG TAB PO SCH ×3 (09:08→20:37)
--- NOTE | 2017-07-03 11:51 | PDOC.PN ---
- Subjective Encounter Start Date: 07/03/17 Encounter Start Time: 09:30 Subjective: no chest pain or sob, is sitting in chair - Objective MAR Reviewed: Yes Vital Signs & Weight: Vital Signs (12 hours) Temp Pulse Resp BP BP Pulse Ox 07/03/17 10:12 98.5 F 68 18 141/69 H 99 07/03/17 09:08 67 125/63 07/03/17 08:00 98.3 F 67 16 96 07/03/17 07:59 71 131/53 L 07/03/17 04:00 98.2 F 07/03/17 00:00 97.9 F Weight Admit Weight 167 lb 8.821 oz Weight 167 lb 8.821 oz Most Recent Monitor Data Heart Rate from ECG 67 NIBP 128/62 NIBP BP-Mean 103 Respiration from ECG 15 SpO2 94 I&O: 07/02/17 07/03/17 07/04/17 06:59 06:59 06:59 Intake Total 1157.4 1955.6 200 Output Total 1500 3015 350 Balance -342.6 -1059.4 -150 Result Diagrams: 07/03/17 03:59 07/03/17 03:59 Phys Exam - Physical Examination HEENT: PERRLA, moist MMs Neck: no JVD, supple Respiratory: no wheezing rales+ Cardiovascular: RRR, no significant murmur Gastrointestinal: soft, non-tender, positive bowel sounds Musculoskeletal: no edema, pulses present Neurological: non-focal, moves all 4 limbs Psychiatric: A&O x 3 Dx/Plan (1) Acute on chronic combined systolic and diastolic congestive heart failure Code(s): I50.43 - ACUTE ON CHRONIC COMBINED SYSTOLIC AND DIASTOLIC HRT FAIL Status: Acute (2) Acute worsening of stage 4 chronic kidney disease Code(s): N28.9 - DISORDER OF KIDNEY AND URETER, UNSPECIFIED; N18.4 - CHRONIC KIDNEY DISEASE, STAGE 4 (SEVERE) Status: Acute (3) Hyperuricemia Code(s): E79.0 - HYPERURICEMIA W/O SIGNS OF INFLAM ARTHRIT AND TOPHACEOUS DIS Status: Chronic (4) Metabolic acidosis Code(s): E87.2 - ACIDOSIS Status: Acute (5) Anemia of renal disease Code(s): D63.1 - ANEMIA IN CHRONIC KIDNEY DISEASE Status: Chronic (6) CKD (chronic kidney disease) stage 4, GFR 15-29 ml/min Code(s): N18.4 - CHRONIC KIDNEY DISEASE, STAGE 4 (SEVERE) Status: Chronic (7) DM type 2 (diabetes mellitus, type 2) Status: Chronic Qualifiers: Diabetes mellitus complication status: with kidney complications Diabetes mellitus complication detail: with chronic kidney disease Diabetes mellitus conference organizer insulin use: without alf use Chronic kidney disease stage: stage 4 (severe) Qualified Code(s): E11.22 - Type 2 diabetes mellitus with diabetic chronic kidney disease; N18.4 - Chronic kidney disease, stage 4 (severe ); N18.4 - Chronic kidney disease, stage 4 (severe); N18.4 - Chronic kidney disease, stage 4 (severe); N18.4 - Chronic kidney disease, stage 4 (severe) - Plan is on lasix 40mg iv twice daily -: renal function stable but pretty close to HD -: HD per nephrology advice -: will need fistula and HD access -: dc plan per nephrology advice * . Review of Systems - Medications/Allergies Allergies/Adverse Reactions: Allergies Allergy/AdvReac Type Severity Reaction Status Date / Time No Known Drug Allergies Allergy Verified 12/29/16 23:47 Medications: Current Medications Allopurinol (Zyloprim) 100 mg PO DAILY [facility] Last Admin: 07/03/17 07:58 Dose: 100 mg Aspirin (Aspirin Chewable) 81 mg PO DAILY [facility] Last Admin: 07/03/17 07:58 Dose: 81 mg Calcitriol (Rocaltrol) 0.25 mcg PO DAILY [facility] Last Admin: 07/03/17 07:58 Dose: 0.25 mcg Calcium Acetate (Phoslo) 1,334 mg PO TID-[facility] Last Admin: 07/03/17 07:57 Dose: 1,334 mg Calcium Carbonate (Tums) 1,000 mg PO BID [facility] Last Admin: 07/03/17 09:08 Dose: 1,000 mg Epoetin Branden (Procrit) 7,500 units SC Q7D [facility] Last Admin: 07/02/17 20:23 Dose: 7,500 units Ferrous Sulfate (Feosol) 325 mg PO QAM-[facility] Last Admin: 07/03/17 07:57 Dose: 325 mg Furosemide (Lasix) 40 mg SLOW IVP 0600,1400 [facility] Last Admin: 07/03/17 05:25 Dose: 40 mg Hydralazine HCl (Apresoline) 100 mg PO TID [facility] Last Admin: 07/03/17 09:08 Dose: 100 mg Dobutamine HCl/Dextrose (Dobutamine 500 Mg/250 Ml) 250 mls @ 11.4 mls/hr IVPB INF [facility] PRN Reason: Protocol Nicardipine HCl 25 mg/ Sodium (Chloride) 260 mls @ 0 mls/hr IVPB INF [facility]; Titrate PRN Reason: Protocol Last Admin: 07/02/17 13:02 Dose: 260 mls Isosorbide Mononitrate (Imdur Er) 60 mg PO DAILY [facility] Last Admin: 07/03/17 07:58 Dose: 60 mg Nifedipine (Procardia Xl) 30 mg PO DAILY [facility] Last Admin: 07/03/17 07:59 Dose: 30 mg Simvastatin (Zocor) 10 mg PO HS [facility] Last Admin: 07/02/17 20:13 Dose: 10 mg
--- NOTE | 2017-07-03 12:05 | PRG ---
DATE OF SERVICE: 07/03/2017 OBJECTIVE: GENERAL: This is a well-built male in no apparent distress. VITAL SIGNS: Temperature 98, pulse 67, respirations 16, blood pressure 149/58. LABORATORY DATA: Potassium is 3.7, BUN is 42, creatinine is 5.8. ASSESSMENT AND PLAN: 1. Acute kidney injury on chronic kidney disease. Renal function is stable, slightly better than y esterday. No acute indication for dialysis. Again, patient does not have funding. I did talk with his family. Patient is having a August, and advised to have insurance to arrange for possi ble future outpatient dialysis. Patient's family is going to come in and is going to talk with the social worker school today. 2. Metabolic acidosis. 3. Hyperkalemia, better. 4. Edema, better. 5. Anemia. 6. Hypertension, stable. Overall, stable, okay to move to the medical floor and have close monitoring. No acute need for lázaro lysis, possible home in 24-48 hours with close outpatient followup and preparation for outpatient di alysis once insurance is arranged.
--- NOTE | 2017-07-03 12:44 | PDOC.CTH ---
Cardiology Progress Note - Subjective He is doing better. His breathing is at baseline. His BP is better controlled. - Objective Vital Signs Temp Pulse Resp BP BP BP Pulse Ox 07/03/17 12:10 98.5 F 71 15 136/67 96 07/03/17 10:12 98.5 F 68 18 141/69 H 99 07/03/17 09:08 67 125/63 07/03/17 08:00 98.3 F 67 16 96 07/03/17 07:59 71 131/53 L 07/03/17 04:00 98.2 F Admit Weight 167 lb 8.821 oz Weight 167 lb 8.821 oz 07/02/17 07/03/17 07/04/17 06:59 06:59 06:59 Intake Total 1157.4 1955.6 200 Output Total 1500 3015 350 Balance -342.6 -1059.4 -150 - Physical Examination General/Neuro: alert & oriented x3, NAD Neck: no JVD present Lungs: unlabored respirations Heart: RRR Abdomen: NT/ND Extremities: + edema B (no edema) - Telemetry Telemetry Rhythm: NSR - Labs Result Diagrams: 07/03/17 03:59 07/03/17 03:59 Troponin/CKMB CK-MB (CK-2) 3.5 ng/mL (0-6.6) 06/30/17 20:30 Troponin I 0.024 ng/mL (< 0.028) 07/01/17 03:59 - Assessment/Plan 1. Acute on chronic systolic dysfunction 2. CKD stage 5 3. Non compliance 4. HTN malignant 5. EF at 40% PLAN: - Continue lasix PO. - Continue hydralazine at 100mg TID. - Cannot have BB due to bradycardia down to the 30's after receiving a few doses. - Not a candidate for an AICD. - Normal stress test on last visit. - No plan for dialysis for now. - May transfer to floor. - Home soon.
--- NOTE | 2017-07-03 13:11 | PRG ---
DATE OF SERVICE: 07/03/2017 SUBJECTIVE: Moe Zepeda did well overnight. He had no complaints. SUBJECTIVE: VITAL SIGNS: He is afebrile, heart rate 71, respiratory rate 15, oximetry is 96%, blood pressure 13 6/67. LUNGS: Clear. HEART: Regular rhythm. ABDOMEN: Soft. LABORATORY DATA: White count 5.1, hemoglobin 8.4, and platelets 217. Electrolytes are normal. BUN is 42, creatinine has gone from 6.24-5.87. IMPRESSION: 1. End-stage renal disease. 2. Volume overload. 3. Left ventricular systolic dysfunction. 4. Bradycardia with beta blockers. PLAN: Continue supportive care. He is stable to move out of the Critical Care Unit.
[2017-07-03] MEDS: Simvastatin 20 MG TAB PO SCH (20:35)
[2017-07-04 05:15] LABS: #Eosinphils 0.4 thou/uL (0.0-0.7); #Monocytes 0.6 thou/uL (0.11-0.59); #Neutrophils 4.9 thou/uL (1.40-6.50); %Basophils 0.5 % (0.0-1.0); %Lymphocytes 14.7 % (21.0-51.0); Hematocrit 25.3 % (42.0-52.0); Mean Platelet Volume 7.4 fL (7.4-10.4); Red Blood Cell (RBC) Count 2.84 mill/uL (4.70-6.10)
[2017-07-04 05:34] LABS: Anion Gap 17 mmol/L (10-20); BUN (Urea Nitrogen) 42 mg/dL (8.4-25.7); BUN/Creatinine Ratio 6.64; Calc. Creatinine Clearance 14 mL/min (70-130); Calcium 8.2 mg/dL (7.8-10.44); Carbon Dioxide 24 mmol/L (22-29); Chloride 102 mmol/L (98-107); Estimated GFR-MDRD 9; Phosphorus 5.3 mg/dL (2.3-4.7)
[2017-07-04] MEDS: Furosemide 100 MG/10 ML VIAL SLOW IVP SCH ×2 (06:09→14:06)
[2017-07-04] MEDS: hydrALAZINE 25 MG TAB PO SCH (08:10)
[2017-07-04] MEDS: Calcium Carbonate 500 MG ChewTAB PO SCH (08:10)
[2017-07-04] MEDS: NIFEdipine XL 30 MG TAB PO SCH (08:11)
[2017-07-04] MEDS: Calcium Acetate 667 MG CAP PO SCH ×2 (08:11→11:20)
[2017-07-04] MEDS: Calcitriol 0.25 MCG CAP PO SCH (08:11)
[2017-07-04] MEDS: Allopurinol 100 MG TAB PO SCH (08:12)
[2017-07-04] MEDS: Ferrous Sulfate 325 MG TAB PO SCH (08:12)
[2017-07-04 08:55] VITALS: TEMP 98.4
--- NOTE | 2017-07-04 09:17 | PDOC.PN ---
- Subjective Encounter Start Date: 07/04/17 Encounter Start Time: 07:15 Subjective: no sob, feels better -: is amb in room - Objective MAR Reviewed: Yes Vital Signs & Weight: Vital Signs (12 hours) Temp Pulse Resp BP BP Pulse Ox 07/04/17 08:11 70 07/04/17 08:10 98.4 F 73 16 143/67 H 143/67 H 95 07/04/17 04:20 98.5 F 70 18 134/68 96 Weight Admit Weight 167 lb 8.821 oz Weight 165 lb 6 oz Most Recent Monitor Data Heart Rate from ECG 67 NIBP 128/62 NIBP BP-Mean 103 Respiration from ECG 15 SpO2 94 I&O: 07/03/17 07/04/17 07/05/17 06:59 06:59 06:59 Intake Total 1955.6 560 Output Total 3015 1100 Balance -1059.4 -540 Result Diagrams: 07/04/17 04:38 07/04/17 04:38 Phys Exam - Physical Examination HEENT: PERRLA, moist MMs Neck: no JVD, supple Respiratory: no wheezing, no rales Cardiovascular: RRR, no significant murmur Gastrointestinal: soft, non-tender, positive bowel sounds Musculoskeletal: no edema, pulses present Neurological: non-focal, moves all 4 limbs Psychiatric: A&O x 3 Dx/Plan (1) Acute on chronic combined systolic and diastolic congestive heart failure Code(s): I50.43 - ACUTE ON CHRONIC COMBINED SYSTOLIC AND DIASTOLIC HRT FAIL Status: Acute (2) Acute worsening of stage 4 chronic kidney disease Code(s): N28.9 - DISORDER OF KIDNEY AND URETER, UNSPECIFIED; N18.4 - CHRONIC KIDNEY DISEASE, STAGE 4 (SEVERE) Status: Acute (3) Hyperuricemia Code(s): E79.0 - HYPERURICEMIA W/O SIGNS OF INFLAM ARTHRIT AND TOPHACEOUS DIS Status: Chronic (4) Metabolic acidosis Code(s): E87.2 - ACIDOSIS Status: Acute Comment: resolving (5) Anemia of renal disease Code(s): D63.1 - ANEMIA IN CHRONIC KIDNEY DISEASE Status: Chronic (6) CKD (chronic kidney disease) stage 4, GFR 15-29 ml/min Code(s): N18.4 - CHRONIC KIDNEY DISEASE, STAGE 4 (SEVERE) Status: Chronic (7) DM type 2 (diabetes mellitus, type 2) Status: Chronic Qualifiers: Diabetes mellitus complication status: with kidney complications Diabetes mellitus complication detail: with chronic kidney disease Diabetes mellitus terminal make up operator insulin use: without terminal make up operator use Chronic kidney disease stage: stage 4 (severe) Qualified Code(s): E11.22 - Type 2 diabetes mellitus with diabetic chronic kidney disease; N18.4 - Chronic kidney disease, stage 4 (severe ); N18.4 - Chronic kidney disease, stage 4 (severe); N18.4 - Chronic kidney disease, stage 4 (severe); N18.4 - Chronic kidney disease, stage 4 (severe) - Plan likely home today if there are no plan for HD -: will d/w -: renal function stabilizing, still very close to HD -: not a candidate for AICD, no BB due to bradycardia -: No SANTIAGO/ARB's due to kamilah/ckd6 * . Review of Systems - Medications/Allergies Allergies/Adverse Reactions: Allergies Allergy/AdvReac Type Severity Reaction Status Date / Time No Known Drug Allergies Allergy Verified 12/29/16 23:47 Medications: Current Medications Allopurinol (Zyloprim) 100 mg PO DAILY [facility] Last Admin: 07/04/17 08:12 Dose: 100 mg Aspirin (Aspirin Chewable) 81 mg PO DAILY [facility] Last Admin: 07/04/17 08:12 Dose: 81 mg Calcitriol (Rocaltrol) 0.25 mcg PO DAILY [facility] Last Admin: 07/04/17 08:11 Dose: 0.25 mcg Calcium Acetate (Phoslo) 1,334 mg PO TID[facility] Last Admin: 07/04/17 08:11 Dose: 1,334 mg Calcium Carbonate (Tums) 1,000 mg PO BID [facility] Last Admin: 07/04/17 08:10 Dose: 1,000 mg Epoetin Branden (Procrit) 7,500 units SC Q7D [facility] Last Admin: 07/02/17 20:23 Dose: 7,500 units Ferrous Sulfate (Feosol) 325 mg PO QAM-[facility] Last Admin: 07/04/17 08:12 Dose: 325 mg Furosemide (Lasix) 40 mg SLOW IVP 0600,1400 [facility] Last Admin: 07/04/17 06:09 Dose: 40 mg Hydralazine HCl (Apresoline) 100 mg PO TID [facility] Last Admin: 07/04/17 08:10 Dose: 100 mg Isosorbide Mononitrate (Imdur Er) 60 mg PO DAILY [facility] Last Admin: 07/04/17 08:11 Dose: 60 mg Nifedipine (Procardia Xl) 30 mg PO DAILY [facility] Last Admin: 07/04/17 08:11 Dose: 30 mg Simvastatin (Zocor) 10 mg PO HS [facility] Last Admin: 07/03/17 20:35 Dose: 10 mg
[2017-07-04 12:16] VITALS: BP 132/64
--- NOTE | 2017-07-04 12:38 | DIS ---
DATE OF ADMISSION: 06/30/2017 DATE OF DISCHARGE: 07/04/2017 DISCHARGE DISPOSITION: To home. PRIMARY DISCHARGE DIAGNOSES: Volume overload with acute on chronic systolic dysfunction with congestive heart failure exacerbation, acute kidney injury with history of chronic kidney disease stage 4, hyperuricemia, metabolic acidosis, chronic anemia and diabetes mellitus type 2. PROCEDURES DONE DURING HOSPITALIZATION: A chest x-ray done on the day of admission showed bilateral interstitial edema with right pleural effusion, hemoglobin and hematocrit 8.6 and 25 with platelet count of 284. Discharge BUN and creatinine is 42 and 6.3 with serum bicarbonate of 24, albumin is 2.7. Admitting BUN and creatinine were 39 and 5.4 with serum bicarbonate of 19. BNP was 3574. DISCHARGE MEDICATIONS: Allopurinol 100 mg p.o. daily, aspirin 81 mg p.o. daily , calcitriol 0.25 mcg p.o. daily, PhosLo 1334 mg p.o. 3 times daily, Tums 1 gram twice daily, ferrous sulfate 325 mg daily, Lasix 40 mg twice daily, Imdur extended release 30 mg daily, Procardia XL 30 mg p.o. daily, Pravachol 20 mg p.o. at bedtime, sodium bicarbonate 325 mg p.o. twice daily and hydralazine 100 mg p.o. 3 times daily. ALLERGIES: No known drug allergies. INPATIENT CONSULTS: Dr. Ram for Cardiology, Dr. Perez for Nephrology, Dr. Donohue for Pulmonology and Critical Care. BRIEF COURSE DURING HOSPITALIZATION: Patient initially got admitted on the with complaints of chest pain and shortness of breath. He had known history of CKD stage IV and had volume overload with acute kidney injury. The patient had acute on chronic CHF exacerbation due to volume overload with systolic dysfunction. He was initially placed on BiPAP and IV Lasix drip in ICU. He was closely monitored. Due to his chest pain, he was also on nitroglycerin drip, which was shortly discontinued. The patient has metabolic acidosis due to renal failure. He was downgraded to telemetry. Patient was given a dose of beta-henry and soon went into bradycardia and hence had to be upgraded back to ICU. He was briefly on dobutamine drip for bradycardia, but this resolved quickly. No beta-henry or SANTIAGO inhibitors were given due to bradycardia and acute kidney injury on top of chronic kidney disease stage 4. Prior to discharge, he is ambulating in the room. The patient still makes around 1100 mL of urine. Mr. Zepeda does not have any funding nor health insurance. The patient needs to follow up with Dr. Perez for possible hemodialysis access procedures in the outpatient setting. He is otherwise hemodynamically stable and has been cleared by Nephrology and Cardiology for discharge. Please see a [id number] documentation on [facility] for the day of discharge. MARTIN
--- NOTE | 2017-07-04 19:53 | PRG ---
DATE OF SERVICE: 07/04/2017 SUBJECTIVE: Patient was seen and examined at bedside and overnight events noted. Patient denies any shortness of breath or chest pain or palpitation. No history of nausea or vomiting or diarrhea or fever or chills or cramps. OBJECTIVE: GENERAL: This is a well-built male in no apparent distress. VITAL SIGNS: Temperature 98.4, pulse 73, blood pressure 130/64. HEENT: Atraumatic, normocephalic, Oral mucosa is moist Neck: Supple Cardiovascular: S1S2 heard, Rate and rhythm regular Respiratory: Clear to auscultation Gastrointestinal: Abdomen is soft Musculoskeletal : No tenderness, No edema Dermatologic : No skin rash Neurologic: Alert and awake and oriented X3, No focal neurologic deficits. Moving all the extremitie s. Psychiatric: Mood and affect normal LABORATORY DATA: Potassium is 4.0, BUN is 42, and creatinine is 6.3. ASSESSMENT AND PLAN: 1. Acute kidney injury on chronic kidney disease stage 5. No acute indication for dialysis. Patie nt dialysis. Family is aware of situation and family is working on insurance to arrange for o utpatient dialysis. 2. Metabolic acidosis. 3. Hyperkalemia. 4. Anemia. 5. Hypertension. Overall long-term prognosis is poor. Family is aware. Advised to apply for insurance to arrange fo r outpatient dialysis; otherwise might need emergent dialysis at the hospital as stated. Family is aware of the situation and was advised to follow up with the clinic in 1-2 weeks.
== END 2017-07-04 14:38 | disposition home or self-care (01) | DRG 291 ==
LOC: ERS 19:56 → CCU 22:10 → 2NO 07-01 14:32 → CCU 07-01 17:37 → 2NO 07-03 10:06
PROVIDERS: ADMIT Internal Medicine; ATTEND Internal Medicine
PROC: 5A09357 Assistance with Respiratory Ventilation, Less than 24 Consecutive Hours, Continuous Positive Airway Pressure (ICD-10-PCS; principal; 2017-06-30)
DX: I13.2 Hypertensive heart and chronic kidney disease with heart failure and with stage 5 chronic kidney disease, or end stage renal disease (principal); I50.23 Acute on chronic systolic (congestive) heart failure; J96.01 Acute respiratory failure with hypoxia; E87.2 Acidosis; N17.9 Acute kidney failure, unspecified; N18.5 Chronic kidney disease, stage 5; R00.1 Bradycardia, unspecified; D63.1 Anemia in chronic kidney disease; E78.5 Hyperlipidemia, unspecified; E79.0 Hyperuricemia without signs of inflammatory arthritis and tophaceous disease; E11.22 Type 2 diabetes mellitus with diabetic chronic kidney disease; E88.09 Other disorders of plasma-protein metabolism, not elsewhere classified; Z91.19 Patient's noncompliance with other medical treatment and regimen
CPT/HCPCS: 36415; 36416; 71010; 80048; 80053; 80069; 82274; 82553; 82805; 83690; 83735; 83880; 84484; 85025; 85610; 85730; 93005; 93798; 96365; 96366; 96375; J1940; J7050; Q4081

== ENCOUNTER 2017-08-03 18:44 | Inpatient (IN) | payer MEDICAID, OTHER, SELFPAY ==
[2017-08-03] MEDS ORDERED: Nitroglycerin 50 MG/250 ML BOT 250 ML ONE (18:50)
[2017-08-03 19:10] LABS: Oxyhemoglobin 91.3 % (94.0-97.0)
[2017-08-03 19:10] LABS: Bilirubin Negative (Negative); Blood, Urine Moderate (Negative); Glucose, Urine (Dipstick) 250 mg/dL (Negative); Ketone, Urine Negative (Negative); Nitrite Negative (Negative); Protein, Urine (Dipstick) > or equal to 300 mg/dL (Neg-Trace); Urobilinogen 0.2 mg/dL (0.2-1.0)
[2017-08-03] MEDS ORDERED: Fentanyl 20 MCG/ML 250 ML ONE (19:10)
[2017-08-03 19:11] LABS: Modified Allen's Test POSITIVE; Sodium 136 mmol/L (135-148); Vent YES
[2017-08-03 19:11] LABS: Hematocrit 31.9 % (42.0-52.0); Mean Platelet Volume 8.4 fL (7.4-10.4); Red Blood Cell (RBC) Count 3.65 mill/uL (4.70-6.10); White Blood Cell (WBC) Count 20.2 thou/uL (4.8-10.8)
[2017-08-03 19:12] LABS: Bacteria/HPF None Seen HPF (None Seen); RBC/HPF 21-50 HPF (0-3)
[2017-08-03 19:12] LABS: Mechanical Tidal Volume 500 ml; Mode SIMV; Pressure Support 10 cmH2O
[2017-08-03] MEDS ORDERED: Albuterol Sulfate 2.5 mg/0.5 ml Neb ONE (19:14)
[2017-08-03] MEDS ORDERED: Albuterol Sulfate 2.5 mg/3 ml Neb ONE (19:17)
[2017-08-03] MEDS ORDERED: Furosemide 100 MG/10 ML VIAL ONE (19:18)
[2017-08-03] MEDS ORDERED: Sodium Bicarb 50 MEQ/50 ML Abboject 8.4% SYRINGE ONE (19:18)
[2017-08-03] MEDS ORDERED: Calcium Gluc 4.6 MEQ/10 ML (100 MG/ML) ONE (19:18)
[2017-08-03] MEDS ORDERED: Insulin Regular 300 UNITS/3 ML VIAL ONE (19:18)
[2017-08-03] MEDS ORDERED: Dextrose 50% Abboject 50 ML SYRINGE ONE (19:18)
[2017-08-03 19:27] LABS: Anisocytosis SLIGHT = 6-15 cells (100X) (0-5/hpf); Band 11 % (5-11); Neutrophil 80 % (42-75); Ovalocytes SLIGHT = 2-5 cells (100X) (0-1/hpf); Polychromasia SLIGHT = 2-3 cells (100X) (0-2/hpf)
[2017-08-03 19:30] LABS: Hyaline Casts/LPF 0-3 HYALINE CAST LPF (0-3 Hyaline); Renal Epithelial None Seen HPF (0-3); Transitional Epithelial NONE SEEN HPF (0-3)
[2017-08-03] MEDS ORDERED: Calcium Gluc 4.6 MEQ/10 ML (100 MG/ML) SLOW IVP SCH (19:30)
[2017-08-03] MEDS ORDERED: Lorazepam 2 MG/ML VIAL ONE (20:19)
[2017-08-03] MEDS ORDERED: Propofol 1,000 MG/100 ML VIAL IV PRN (21:07)
[2017-08-03] MEDS ORDERED: Lorazepam 2 MG/ML VIAL SLOW IVP PRN (21:07)
[2017-08-03] MEDS ORDERED: Fentanyl 20 MCG/ML 250 ML IVPB SCH (21:07)
[2017-08-03] MEDS ORDERED: DISCONTINUE PREVIOUS NARCOTIC PAIN MEDICATIONS AND BENZODIAZEPINES FS SCH (21:07)
[2017-08-03] MEDS ORDERED: Sterile Water 10 ML VIAL IVP PRN (21:18)
[2017-08-03] MEDS ORDERED: Activase 2 MG VIAL CATH SCH ×2 (21:18→23:45)
--- NOTE | 2017-08-03 22:07 | RAD ---
AP VIEW OF THE CHEST 08/03/17 INDICATION: Emergency exam. COMPARISON: Prior exam dated 08/03/17. IMPRESSION: The extent of the perihilar opacities has slightly diminished and may reflect improving edema. ET tub e catheter unchanged. No pneumothorax is evident. osseous structures are similar. POS: [facility]
[2017-08-03] MEDS ORDERED: Sodium Chloride 0.9% 500 ML IVPB SCH (22:30)
[2017-08-03 22:31] LABS: ALT (SGPT) 9 U/L (8-55); AST (SGOT) 14 U/L (5-34); Alkaline Phosphatase 61 U/L (40-150); Anion Gap 14 mmol/L (10-20); BUN (Urea Nitrogen) 46 mg/dL (8.4-25.7); Bilirubin, Total 0.4 mg/dL (0.2-1.2); Calc. Creatinine Clearance 13 mL/min (70-130); Calcium 7.4 mg/dL (7.8-10.44); Carbon Dioxide 18 mmol/L (22-29); Chloride 110 mmol/L (98-107); Estimated GFR-MDRD 9; Globulin 2.8 g/dL (2.4-3.5); Protein, Total 5.6 g/dL (6.0-8.3)
[2017-08-03] MEDS: Famotidine/PF 20 mg/2ml Vial SLOW IVP SCH (22:40)
[2017-08-03] MEDS ORDERED: Sodium Chloride 0.9% 1,000 ML IV SCH (23:30)
[2017-08-03] MEDS ORDERED: Sterile Water 10 ML VIAL IVP SCH (23:45)
[2017-08-04 05:47] LABS: ALT (SGPT) 10 U/L (8-55); AST (SGOT) 14 U/L (5-34); Alkaline Phosphatase 62 U/L (40-150); Anion Gap 15 mmol/L (10-20); BUN (Urea Nitrogen) 32 mg/dL (8.4-25.7); Bilirubin, Total 0.3 mg/dL (0.2-1.2); Calc. Creatinine Clearance 19 mL/min (70-130); Calcium 7.3 mg/dL (7.8-10.44); Carbon Dioxide 21 mmol/L (22-29); Chloride 103 mmol/L (98-107); Estimated GFR-MDRD 13; Globulin 2.8 g/dL (2.4-3.5); Protein, Total 5.6 g/dL (6.0-8.3)
[2017-08-04 06:02] LABS: #Lymphocytes 0.5 thou/uL (1.20-3.40); #Monocytes 0.5 thou/uL (0.11-0.59); #Neutrophils 6.6 thou/uL (1.40-6.50); %Basophils 0.1 % (0.0-1.0); %Eosinophils 0.4 % (0.0-10.0); %Monocytes 6.9 % (0.0-10.0); Band 4 % (5-11); Hematocrit 23.1 % (42.0-52.0); Mean Platelet Volume 9.1 fL (7.4-10.4); Neutrophil 82 % (42-75); Red Blood Cell (RBC) Count 2.68 mill/uL (4.70-6.10); White Blood Cell (WBC) Count 7.7 thou/uL (4.8-10.8)
--- NOTE | 2017-08-04 07:17 | ULT ---
RENAL ULTRASOUND: INDICATION: Renal failure. COMPARISON: Prior exam dated 12/30/16. FINDINGS: The right kidney measures 10.3 x 5.2 x 5.3 cm. The left kidney measures 11.1 x 5.7 x 4.2 cm. No focal renal lesion or hydronephrosis is evident. The bladder is decompressed with a Teague catheter. A small amount of perinephric fluid is seen surro unding both kidneys. IMPRESSION: No hydronephrosis or focal renal lesion. POS: [facility]
--- NOTE | 2017-08-04 07:20 | HP ---
DATE OF ADMISSION: 08/03/2017 The patient presented to the emergency room with shortness of breath initially at a different ER and he was found to be severely hypoxic and was intubated. HISTORY OF PRESENT ILLNESS: History have been mostly obtained from medical records from the ER since patient's family was not present and the patient was not communicable at the time of exam, patient's record indicated that he is a 61-year-old male who presented to ED from [place]. He was intubated. He came to the [place] ER initially with complaint of having shortness of breath. He was tachypneic a t 50-60 and heart rate with 76% on room air and tachycardic as well. His heart rate was around 150. Patient was intubated immediately post-intubation. Patient was transferred here to the emergency ro . He has a history of ESRD and has not gone to get his dialysis secondary to insurance issues. PAST MEDICAL HISTORY: He has type 2 diabetes, hyperlipidemia, high cholesterol, hypertension, kidney disease requiring hemodialysis, but has never had dialysis before. PAST SURGICAL HISTORY: None. SOCIAL HISTORY: From record. SOCIAL HISTORY: The patient drinks socially twice a month. Denies any drug use. No smoking history . Lives at home with family. ALLERGIES: No known allergies. REVIEW OF SYSTEMS: Not performed secondary to patient's mental status and intubation. PHYSICAL EXAMINATION: VITAL SIGNS: The patient's blood pressure was 139/78 with a pulse of 104, oxygen sat 100% on ventila tor, respiratory rate of 18, post-status post intubation. GENERAL: Constitutionally, patient is intubated. HEENT: Otherwise, his head was normal, atraumatic, normocephalic. Eyes, his pupils were equally rou nd and reactive to light. ENT: Not able to do exam. NECK: His trachea was midline. RESPIRATORY: He is intubated. There were breath sounds in all lobes. Coarse in nature. CARDIOVASCULAR: He has a regular rate and rhythm. Normal heart sounds. ABDOMEN: Soft and nondistended. MUSCULOSKELETAL: Both upper and lower extremities were normal finding, no edema noted on the lower e xtremities. NEUROLOGIC: Intubated, sedated, unable to perform exam. SKIN: Warm and dry. IMAGING AND LABORATORY DATA: Chest x-ray shows slightly improving edema with tube in correct place. He had an elevated WBC of 20.2, hemoglobin was 10.6. His ABG came back with 7.23 on pH. Sodium and potassium was within normal range. His BNP was elevated at 2653.6. UA negative for nitrates, leuko cyte esterase, and negative ketones. All of his other labs were reviewed and in the chart. IMPRESSION: 1. Acute respiratory failure with hypoxemia. 2. Pulmonary edema with congestive heart failure. 3. Renal failure, acute on chronic. PLAN: The patient is a full admission. Patient is intubated. Plan is to have emergent hemodialysis . Consult supervisor wound and supervisor nutritional yeast. Patient is sedated with fentanyl and Versed. Nitro drip was used for pulmonary edema. We will follow up with Nephrology and Pulmonology's consult and recomm endations. Patient received emergent dialysis and will follow up with the morning labs. Patient is admitted to ICU. PT/OT was also consulted. We will continue to monitor.
[2017-08-04 07:32] LABS: Oxyhemoglobin 98.5 % (94.0-97.0); Sodium 135 mmol/L (135-148)
[2017-08-04 07:57] LABS: Modified Allen's Test NOT DONE; Vent YES
[2017-08-04 07:58] LABS: Mechanical Tidal Volume 500 ml; Mode SIMV/PSV; Pressure Support 10 cmH2O
--- NOTE | 2017-08-04 08:28 | CON ---
DATE OF CONSULTATION: 08/03/2017 CONSULTING PHYSICIAN: Dr. Elkin Hunter. REASON FOR CONSULTATION: End-stage renal disease. REASON FOR ADMISSION: Shortness of breath. HISTORY OF PRESENT ILLNESS: A 61-year-old male with history of chronic kidney disease stage 5, type 2 diabetes, hypertension, came to the hospital with shortness of breath. Patient is on followup for CKD, but does not have documentation or insurance to arrange outpatient dialysis and came to the hosp ital with shortness of breath and was intubated in the ER due to hypoxia. The patient was also found to have hyperkalemia, which was later found to be better. The patient is intubated currently not able to give history. PAST MEDICAL HISTORY: Positive for type 2 diabetes, hypertension, hyperlipidemia, chronic kidney dis ease. PAST SURGICAL HISTORY: None. HOME MEDICATIONS: Ferrous sulfate, Tums, furosemide, sodium bicarbonate, isosorbide mononitrate, hyd ralazine, Procardia, pravastatin, calcitriol, PhosLo, and allopurinol. ALLERGIES: No known drug allergies. SOCIAL HISTORY: No smoking or alcohol. FAMILY HISTORY: No history of any kidney disease. REVIEW OF SYSTEMS: Could not be obtained as intubated. PHYSICAL EXAMINATION: VITAL SIGNS: Temperature 98.9, pulse 104, respiratory 18, blood pressure 139/70. HEENT: Intubated. CARDIOVASCULAR: S1, S2 heard. Rate and rhythm regular. RESPIRATORY: Intubated. GASTROINTESTINAL: Abdomen is soft. MUSCULOSKELETAL: No tenderness. DERMATOLOGIC: No skin rash. NEUROLOGIC: Intubated. LABORATORY DATA: Potassium is 3.9, BUN is 46, creatinine 6.67. BNP is 2653, albumin is 2.8, hemoglo bin is 10.6. WBC 20.2, pH is 7.23. ASSESSMENT AND PLAN: 1. End-stage renal disease. Patient needs emergent dialysis due to hyperkalemia and fluid overload. Patient dialysis . 2. Patient still does not have any insurance to arrange outpatient dialysis. We will have case desi blanton consultation for assistance. 3. Elevated BNP. 4. Fluid overload. 5. Edema. 6. Hypertension. 7. Hyperkalemia, emergent dialysis. 8. Acidosis. 9. Anemia of end-stage renal disease. 10. Type 2 diabetes, diabetic nephropathy. 11. Proteinuria. Plan is to start on dialysis. Follow with case management for outpatient dialysis placement. We saundra l follow.
[2017-08-04] MEDS: Famotidine/PF 20 mg/2ml Vial SLOW IVP SCH (08:50)
[2017-08-04] MEDS ORDERED: FLU VACC QS2017-18 36 mo. & older 0.5 ML SYRINGE IM ONE (09:00)
--- NOTE | 2017-08-04 09:02 | RAD ---
PORTABLE CHEST: COMPARISON: Prior day's study. HISTORY: Congestive failure. FINDINGS: Endotracheal and NG tubes are in satisfactory position. The interstitial alveolar parenchymal lungs which are more in a perihilar distribution show continued improvement as compared to the prior exams. The right perihilar lung changes have largely resolved. There is improvement to the left perihilar changes. The changes appear very asymmetric at this time. IMPRESSION: Continued improvement in perihilar lung changes now with almost complete resolution of the right-side d changes, still with interstitial alveolar changes in the left lung which could still indicate a res olving asymmetric edema pattern, although pneumonia would also have to be a consideration. POS: [facility]
[2017-08-04] MEDS ORDERED: Epoetin (ESRD) 10,000 UNITS/ML VIAL IVP SCH (09:45)
--- NOTE | 2017-08-04 13:33 | PDOC.PN ---
- Subjective Encounter Start Date: 08/04/17 Encounter Start Time: 13:31 Subjective: pt awake but still intubated.nods head for questions -: HD initiated.no new events per nursing -: plans to extubate post HD - Objective Resuscitation Status: Resuscitation Status FULL:Full Resuscitation MAR Reviewed: Yes Vital Signs & Weight: Vital Signs (12 hours) Temp Pulse Resp BP Pulse Ox 08/04/17 12:00 10 L 08/04/17 11:26 88 132/78 08/04/17 10:00 10 L 08/04/17 08:00 99.2 F 88 18 100 08/04/17 07:09 87 146/83 H 08/04/17 06:00 22 H 08/04/17 04:00 98.6 F 22 H 08/04/17 02:10 92 157/84 H 08/04/17 02:00 22 H Weight Admit Weight 169 lb 1.513 oz Weight 169 lb 8.568 oz Most Recent Monitor Data Heart Rate from ECG 89 NIBP 113/66 NIBP BP-Mean 92 Respiration from ECG 18 SpO2 100 I&O: 08/03/17 08/04/17 08/05/17 06:59 06:59 06:59 Intake Total 518.5 Output Total 550 70 Balance -31.5 -70 Result Diagrams: 08/04/17 04:52 08/04/17 04:52 Additional Labs: Accuchecks 08/04/17 10:18 POC Glucose 119 H Laboratory Tests 12/29/16 06/12/17 06/30/17 Unknown 04:00 20:30 Hgb Plt Count B-Natriuretic Peptide 2680.8 H 2695.9 H 3574.3 H 08/03/17 08/03/17 08/04/17 18:50 18:50 04:52 Hgb 10.6 L 7.7 L Plt Count 162 100 L B-Natriuretic Peptide 2653.6 H Phys Exam - Physical Examination Constitutional: NAD HEENT: PERRLA, moist MMs, sclera anicteric, oral pharynx no lesions ETT Neck: no nodes, no JVD, supple, full ROM Respiratory: no wheezing, no rhonchi, clear to auscultation bilateral b/l rales Cardiovascular: RRR, no significant murmur Gastrointestinal: soft, non-tender, no distention, positive bowel sounds Musculoskeletal: no edema, pulses present in restraints Psychiatric: normal affect, A&O x 3 Skin: no rash Dx/Plan (1) Acute respiratory failure with hypoxemia Code(s): J96.01 - ACUTE RESPIRATORY FAILURE WITH HYPOXIA Status: Acute (2) Metabolic acidosis Code(s): E87.2 - ACIDOSIS Status: Acute Comment: resolving (3) Pulmonary edema with congestive heart failure Code(s): I50.1 - LEFT VENTRICULAR FAILURE, UNSPECIFIED Status: Acute (4) Acute on chronic combined systolic and diastolic congestive heart failure Code(s): I50.43 - ACUTE ON CHRONIC COMBINED SYSTOLIC AND DIASTOLIC HRT FAIL Status: Acute (5) Acute worsening of stage 4 chronic kidney disease Code(s): N28.9 - DISORDER OF KIDNEY AND URETER, UNSPECIFIED; N18.4 - CHRONIC KIDNEY DISEASE, STAGE 4 (SEVERE) Status: Acute (6) Anemia of renal disease Code(s): D63.1 - ANEMIA IN CHRONIC KIDNEY DISEASE Status: Chronic (7) DM type 2 (diabetes mellitus, type 2) Status: Chronic Qualifiers: Diabetes mellitus complication status: with kidney complications Diabetes mellitus complication detail: with chronic kidney disease Diabetes mellitus assisted insulin use: without keno terminal operator use Chronic kidney disease stage: stage 4 (severe) Qualified Code(s): E11.22 - Type 2 diabetes mellitus with diabetic chronic kidney disease; N18.4 - Chronic kidney disease, stage 4 (severe ); N18.4 - Chronic kidney disease, stage 4 (severe); N18.4 - Chronic kidney disease, stage 4 (severe); N18.4 - Chronic kidney disease, stage 4 (severe) (8) Secondary hyperparathyroidism of renal origin Code(s): N25.81 - SECONDARY HYPERPARATHYROIDISM OF RENAL ORIGIN Status: Chronic (9) HTN (hypertension) Code(s): I10 - ESSENTIAL (PRIMARY) HYPERTENSION Status: Acute - Plan DVT proph w/SCDs HD initiated. Fluid removal as tolerated. nephrology following -: restart select renal meds .monitor Bp closely.Hold hydralazine. -: Vent weaning per PCCM.jacobo after HD today. -: improved pulmonary edema on CXR as well.clinically better -: will need OP HD set up.pt is unfunded.CM to assist.daily labs * . Review of Systems - Review of Systems Other: can not be obtained due to ETT and some somnolence - Medications/Allergies Allergies/Adverse Reactions: Allergies Allergy/AdvReac Type Severity Reaction Status Date / Time No Known Drug Allergies Allergy Verified 08/03/17 22:29 Medications: Current Medications Epoetin Branden (Procrit) 10,[facility]P [facility] Last Admin: 08/04/17 10:41 Dose: 10,000 units Famotidine (Pepcid) 20 mg SLOW IVP Q24HR [facility] Morphine Sulfate (Morphine) 2 mg IVP Q2H PRN PRN Reason: TO ACHIEVE MICHELLE SCORE 2-3 Stop: 09/02/17 21:07 Discontinue Previous Narcotic Pain Medications And Benzodiazepines 1 each FS .[facility] Stop: 09/02/17 21:07 Sodium Chloride (Flush - Normal Saline) 10 ml IVF Q12HR [facility] Last Admin: 08/04/17 08:50 Dose: 10 ml Sodium Chloride (Flush - Normal Saline) 10 ml IVF PRN PRN PRN Reason: Saline Flush Sodium Chloride (Flush - Normal Saline) 10 ml IVF PRN PRN PRN Reason: Saline Flush
--- NOTE | 2017-08-04 14:13 | CON ---
DATE OF CONSULTATION: 08/04/2017 HISTORY OF PRESENT ILLNESS: Mr. Zepeda is a 61-year-old male with history of chronic kidney disease. Told by the emergency physician, he has not wanted to consider dialysis. He was discharged on 09/2016 with a diagnosis of volume overload and acute kidney injury. His creatinine was 6.3 at discharge and albumin is 2.7. He presented yesterday at an outlying hospital and was intubated with volume overload. He was emerge ntly dialyzed last night. Clinically, he looks much better. His acid base disorder dramatically imp roved. PAST MEDICAL HISTORY: Remarkable for hypertension, lipid disorder, chronic systolic heart failure. SOCIAL HISTORY: He is a nonsmoker, nondrinker. FAMILY HISTORY: He has a negative family history for lung disease at an early age. REVIEW OF SYSTEMS: Not obtained because he is intubated. PHYSICAL EXAMINATION: GENERAL: He is currently in no distress. VITAL SIGNS: His minute volume is about 8 liters per minute, and his blood pressure 146/83, heart ra te 87, respiratory rate is 22. HEENT: Pupils are equal. Sclerae is anicteric. NECK: Supple. LUNGS: Clear anteriorly. HEART: Regular rhythm. S1 and S2 are normal. ABDOMEN: Soft and nontender. EXTREMITIES: Without clubbing, cyanosis, or edema. Intake and output is recorded as only negative 31. I do not see whether dialysis is recorded. PH last night was 7.23, pH is over 7.4 now, pO2 is 240 approximately. Blood gas has not been entered into the computer and this was dictated for memory. White count is 7.7, hemoglobin 7.7, down from 1 0.6. Sodium 135, potassium 4.4, chloride 103, bicarbonate 21, was 18 last night, BUN 32, creatinine 4.6, g lucose 175. IMPRESSION: 1. Volume overload secondary to cardiomyopathy, combined with end-stage renal disease. 2. Metabolic acidosis secondary to end-stage renal disease. 3. ? blood loss anemia with 3 g drop in hemoglobin in spite of dialysis, this will need to be repeat ed. I have ordered a stat chest x-ray. Hopefully, we can extubate him this morning. Critical care time 30 minutes.
--- NOTE | 2017-08-04 14:49 | PRG ---
DATE OF SERVICE: 08/04/2017 SUBJECTIVE: The patient was seen and examined at bedside. was at the bedside. The patient rem ains intubated and updated about . He is having dialysis. OBJECTIVE: GENERAL: This is a well-built male, who is intubated and seen in ICU. VITAL SIGNS: Temperature 99.2, pulse 89, respiratory 20, blood pressure 113/66. HEENT: Intubated. NECK: Supple. CARDIOVASCULAR: S1, S2 heard. Rate and rhythm regular. RESPIRATORY: Clear to auscultation. GASTROINTESTINAL: Abdomen is soft. MUSCULOSKELETAL: No tenderness, no edema. DERMATOLOGIC: No skin rash. NEUROLOGIC: Intubated. PSYCHIATRIC: Mood and affect normal. LABORATORY DATA: Potassium is 4.4, BUN is 32 and creatinine is 4.6. ASSESSMENT AND PLAN: 1. End-stage renal disease, started on hemodialysis during this admission, but unfortunately the linad bull does not have any insurance or documents to get outpatient dialysis. He is having some court he aring this month on 08/17/2017 to get a permanent resident status. We will continue to follow. We wi ll have dialysis p.r.n., might need surgery consult and case management consult to help with social i ssues and also probably need long-term dialysis catheter. 2. Fluid overload, better. 3. Edema. 4. Acute hypoxic respiratory failure from fluid overload intubated. 5. Hypertension. 6. Hyperkalemia, better. 7. Anemia. 8. Acidosis. 9. Proteinuria. 10. Type 2 diabetes. Overall, prognosis is poor. We will have case management consult and surgery consult.
[2017-08-04] MEDS: Calcium Acetate 667 MG CAP PO SCH ×2 (15:20→21:34)
[2017-08-04] MEDS: Calcium Carbonate 500 MG ChewTAB PO SCH (21:34)
[2017-08-04] MEDS: Heparin 5,000 UNITS/ML VIAL SC SCH (21:35)
[2017-08-04] MEDS: Pravastatin Sodium 20 MG TAB PO SCH (21:35)
[2017-08-05 05:02] LABS: Anion Gap 11 mmol/L (10-20); BUN (Urea Nitrogen) 30 mg/dL (8.4-25.7); Calc. Creatinine Clearance 19 mL/min (70-130); Calcium 7.5 mg/dL (7.8-10.44); Carbon Dioxide 27 mmol/L (22-29); Chloride 103 mmol/L (98-107); Estimated GFR-MDRD 14; Phosphorus 4.1 mg/dL (2.3-4.7)
[2017-08-05 05:36] VITALS: BMI 29.2
[2017-08-05] MEDS: Calcium Carbonate 500 MG ChewTAB PO SCH ×2 (08:06→20:42)
[2017-08-05] MEDS: Ferrous Sulfate 325 MG TAB PO SCH (08:06)
[2017-08-05] MEDS: Calcitriol 0.25 MCG CAP PO SCH (08:06)
[2017-08-05] MEDS: NIFEdipine XL 30 MG TAB PO SCH (08:06)
[2017-08-05] MEDS: Calcium Acetate 667 MG CAP PO SCH ×3 (08:06→20:42)
[2017-08-05] MEDS: Heparin 5,000 UNITS/ML VIAL SC SCH ×2 (08:06→20:42)
[2017-08-05] MEDS ORDERED: Famotidine/PF 20 mg/2ml Vial SLOW IVP SCH (09:00)
[2017-08-05 09:10] LABS: Hematocrit 23.1 % (42.0-52.0); Mean Platelet Volume 9.2 fL (7.4-10.4); Red Blood Cell (RBC) Count 2.64 mill/uL (4.70-6.10); White Blood Cell (WBC) Count 5.2 thou/uL (4.8-10.8)
[2017-08-05] MEDS: hydrALAZINE 25 MG TAB PO SCH ×3 (09:12→20:42)
[2017-08-05 09:49] LABS: Anisocytosis SLIGHT = 6-15 cells (100X) (0-5/hpf); Neutrophil 69 % (42-75)
--- NOTE | 2017-08-05 10:25 | RAD ---
PORTABLE CHEST: HISTORY: Respiratory distress. COMPARISON: Prior day's study. FINDINGS: Endotracheal and NG tubes have been removed. The left lung interstitial alveolar lung changes showed some improvement as compared to the prior exam. There has been development of some parenchymal valenzuela ge in the right base new as compared to the prior exam with some blunting to the right costophrenic a ngle suggesting a small effusion. IMPRESSION: 1. Development of some right lower lobe parenchymal change probably related to atelectasis and possi kevin a small right effusion. 2. Improving left-sided perihilar lung changes. POS: [facility]
--- NOTE | 2017-08-05 15:32 | PRG ---
DATE OF SERVICE: 08/05/2017 SUBJECTIVE: Moe Zepeda has no complaints. He says he is feeling well. OBJECTIVE: VITAL SIGNS: His temperature is 99, heart rate is 92, blood pressure 179/93, respiratory rate is 18. Blood pressure was higher as 186/101. LUNGS: Remarkable for clear breath sounds. CARDIOVASCULAR: Regular rhythm. ABDOMEN: Soft. LABORATORY DATA: White count 5.2, hemoglobin 7.6, platelets 123,000. Electrolytes are normal. BUN is 30, creatinine is 4.45. IMPRESSION: 1. End-stage renal disease on being dialyzed through temporary catheter. 2. Anemia of chronic disease, no need to be transfused most likely with dialysis. He is stable to thor fonseca out of the Intensive Care Unit.
--- NOTE | 2017-08-05 16:36 | PRG ---
DATE OF SERVICE: 08/05/2017 SUBJECTIVE: Patient was seen and examined at bedside and overnight events noted. Patient denies any shortness of breath or chest pain or palpitation. No history of nausea or vomiting or diarrhea or f ever or chills or cramps. OBJECTIVE: GENERAL: This is a well-built male in no apparent distress. VITAL SIGNS: Temperature 98.2, pulse 93, respiratory 18, respiratory rate 18, blood pressure 185/10 3. HEENT: Atraumatic, normocephalic. Oral mucosa is moist. NECK: Supple. CARDIOVASCULAR: S1, S2 heard. Rate and rhythm regular. RESPIRATORY: Clear to auscultation. GASTROINTESTINAL: Abdomen is soft. MUSCULOSKELETAL: No tenderness, no edema. DERMATOLOGIC: No skin rash. NEUROLOGIC: Alert and awake and oriented x3. No focal neurologic deficits. Moving all the extremit ies. PSYCHIATRIC: Mood and affect normal. LABORATORY DATA: Potassium is 4.2, BUN 30, creatinine was 4.4. ASSESSMENT AND PLAN: 1. End-stage renal disease, started on hemodialysis during this admission, patient does not have any insurance to have outpatient dialysis, but we will have case management consultation to see if he wi ll qualify for a maria r locally for dialysis placement. 2. Fluid overload. We will have Surgery and case management consult for assistance with the long-te rm dialysis placement. 3. We will also have vein mapping to see if he is a good candidate for fistula. 4. Fluid overload. 5. Edema. 6. Acute hypoxic respiratory failure, extubated. 7. Hypertension. 8. Hyperkalemia. 9. Anemia of chronic disease. 10. Acidosis. 11. Proteinuria with type 2 diabetes and diabetic nephropathy. 12. We will ask for case management assistance with outpatient dialysis placement to see if he would qualify for any maria r. We will have Surgery consult to see if he can have a permanent access placed . We will follow.
--- NOTE | 2017-08-05 17:17 | PDOC.PN ---
- Subjective Encounter Start Date: 08/05/17 Encounter Start Time: 17:15 Subjective: feels much better. extubatted and in medical floor now - Objective Resuscitation Status: Resuscitation Status FULL:Full Resuscitation MAR Reviewed: Yes Vital Signs & Weight: Vital Signs (12 hours) Temp Pulse Resp BP BP BP BP 08/05/17 16:00 99.3 F 94 16 154/85 H 08/05/17 14:01 93 179/93 H 08/05/17 10:54 99.2 F 93 18 08/05/17 10:21 186/101 H 199/98 H 08/05/17 10:15 99.2 F 93 18 179/90 H 08/05/17 09:12 89 181/91 H 08/05/17 08:14 08/05/17 08:06 89 08/05/17 08:00 98.2 F 89 16 08/05/17 07:00 98.2 F Pulse Ox 08/05/17 16:00 97 08/05/17 14:01 08/05/17 10:54 08/05/17 10:21 08/05/17 10:15 95 08/05/17 09:12 08/05/17 08:14 98 08/05/17 08:06 08/05/17 08:00 98 08/05/17 07:00 Weight Admit Weight 169 lb 1.513 oz Weight 159 lb 13.362 oz Most Recent Monitor Data Heart Rate from ECG 94 NIBP 185/103 NIBP BP-Mean 156 Respiration from ECG 16 SpO2 100 I&O: 08/04/17 08/05/17 08/06/17 06:59 06:59 06:59 Intake Total 518.5 683 400 Output Total 550 433 200 Balance -31.5 250 200 Result Diagrams: 08/05/17 03:47 08/05/17 03:51 Additional Labs: Accuchecks 08/04/17 17:27 POC Glucose 121 H Laboratory Tests 07/04/17 08/03/17 08/03/17 04:38 17:51 18:50 Hgb 8.6 L 10.9 L 10.6 L Carbon Dioxide 08/03/17 08/04/17 08/04/17 21:54 04:52 04:52 Hgb 7.7 L Carbon Dioxide 18 L 21 L 08/05/17 03:51 Hgb Carbon Dioxide 27 Radiology Reviewed by me: Yes Phys Exam - Physical Examination Constitutional: NAD HEENT: PERRLA, moist MMs, sclera anicteric, oral pharynx no lesions Neck: no nodes, no JVD, supple, full ROM Respiratory: no wheezing, no rales, no rhonchi, clear to auscultation bilateral Cardiovascular: RRR, no significant murmur, no rub, gallop Gastrointestinal: soft, non-tender, no distention, positive bowel sounds Musculoskeletal: no edema, pulses present Neurological: non-focal, normal sensation, moves all 4 limbs Dx/Plan (1) Pulmonary edema with congestive heart failure Code(s): I50.1 - LEFT VENTRICULAR FAILURE, UNSPECIFIED Status: Acute (2) Acute respiratory failure with hypoxemia Code(s): J96.01 - ACUTE RESPIRATORY FAILURE WITH HYPOXIA Status: Resolved (3) Metabolic acidosis Code(s): E87.2 - ACIDOSIS Status: Acute Comment: resolving (4) Acute on chronic combined systolic and diastolic congestive heart failure Code(s): I50.43 - ACUTE ON CHRONIC COMBINED SYSTOLIC AND DIASTOLIC HRT FAIL Status: Acute (5) Acute worsening of stage 4 chronic kidney disease Code(s): N28.9 - DISORDER OF KIDNEY AND URETER, UNSPECIFIED; N18.4 - CHRONIC KIDNEY DISEASE, STAGE 4 (SEVERE) Status: Acute (6) Anemia of renal disease Code(s): D63.1 - ANEMIA IN CHRONIC KIDNEY DISEASE Status: Chronic (7) DM type 2 (diabetes mellitus, type 2) Status: Chronic Qualifiers: Diabetes mellitus complication status: with kidney complications Diabetes mellitus complication detail: with chronic kidney disease Diabetes mellitus mcfp insulin use: without terminal block assembler use Chronic kidney disease stage: stage 4 (severe) Qualified Code(s): E11.22 - Type 2 diabetes mellitus with diabetic chronic kidney disease; N18.4 - Chronic kidney disease, stage 4 (severe ); N18.4 - Chronic kidney disease, stage 4 (severe); N18.4 - Chronic kidney disease, stage 4 (severe); N18.4 - Chronic kidney disease, stage 4 (severe) (8) Secondary hyperparathyroidism of renal origin Code(s): N25.81 - SECONDARY HYPERPARATHYROIDISM OF RENAL ORIGIN Status: Chronic (9) HTN (hypertension) Code(s): I10 - ESSENTIAL (PRIMARY) HYPERTENSION Status: Acute - Plan DVT proph w/SCDs HD per nephrology.f;luid removal as tolerated. -: H/H stable. repeat in am and transfuse if <7. -: hemodynamically stable. AM labs * . Review of Systems - Review of Systems Constitutional: negative: Fever, Chills, Sweats, Weakness, Malaise, Other ENT: negative: Ear Pain, Ear Discharge, Nose Pain, Nose Discharge, Nose Congestion, Mouth Pain, Mouth Swelling, Throat Pain, Throat Swelling, Other Respiratory: negative: Cough, Dry, Shortness of Breath, Hemoptysis, SOB with Excertion, Pleuritic Pain, Sputum, Wheezing Cardiovascular: negative: Chest Pain, Palpitations, Orthopnea, Paroxysmal Noc. Dyspnea, Edema, Light Headedness, Other Gastrointestinal: negative: Nausea, Vomiting, Abdominal Pain, Diarrhea, Constipation, Melena, Hematochezia, Other Genitourinary: negative: Dysuria, Frequency, Incontinence, Hematuria, Retention , Other Musculoskeletal: negative: Neck Pain, Shoulder Pain, Arm Pain, Back Pain, Hand Pain, Leg Pain, Foot Pain, Other Neurological: negative: Weakness, Numbness, Incoordination, Change in Speech, Confusion, Seizures, Other - Medications/Allergies Allergies/Adverse Reactions: Allergies Allergy/AdvReac Type Severity Reaction Status Date / Time No Known Drug Allergies Allergy Verified 08/03/17 22:29 Medications: Current Medications Calcitriol (Rocaltrol) 0.25 mcg PO DAILY [facility] Last Admin: 08/05/17 08:06 Dose: 0.25 mcg Calcium Acetate (Phoslo) 1,334 mg PO TID [facility] Last Admin: 08/05/17 14:02 Dose: 1,334 mg Calcium Carbonate (Tums) 1,000 mg PO BID [facility] Last Admin: 08/05/17 08:06 Dose: 1,000 mg Epoetin Branden (Procrit) 10,000 units IVP WILLCALL [facility] Last Admin: 08/04/17 10:41 Dose: 10,000 units Ferrous Sulfate (Feosol) 325 mg PO QAM-WM [facility] Last Admin: 08/05/17 08:06 Dose: 325 mg Heparin Sodium (Porcine) (Heparin) 5,000 units SC BID [facility] Last Admin: 08/05/17 08:06 Dose: 5,000 units Hydralazine HCl (Apresoline) 25 mg PO TID [facility] Last Admin: 08/05/17 14:01 Dose: 25 mg Isosorbide Mononitrate (Imdur Er) 30 mg PO DAILY [facility] Last Admin: 08/05/17 08:06 Dose: 30 mg Nifedipine (Procardia Xl) 30 mg PO DAILY [facility] Last Admin: 08/05/17 08:06 Dose: 30 mg Pantoprazole Sodium (Protonix) 40 mg PO DAILY [facility] Last Admin: 08/05/17 09:03 Dose: Not Given Pravastatin Sodium (Pravachol) 20 mg PO HS [facility] Last Admin: 08/04/17 21:35 Dose: 20 mg Sodium Chloride (Flush - Normal Saline) 10 ml IVF Q12HR [facility] Last Admin: 08/05/17 08:07 Dose: 10 ml Sodium Chloride (Flush - Normal Saline) 10 ml IVF PRN PRN PRN Reason: Saline Flush Sodium Chloride (Flush - Normal Saline) 10 ml IVF PRN PRN PRN Reason: Saline Flush
[2017-08-05] MEDS ORDERED: Heparin 10,000 UNITS/1 ML VIAL ONE (17:35)
[2017-08-05] MEDS: Pravastatin Sodium 20 MG TAB PO SCH (20:42)
[2017-08-06 06:00] LABS: #Eosinphils 0.6 thou/uL (0.0-0.7); #Lymphocytes 0.7 thou/uL (1.20-3.40); #Monocytes 0.5 thou/uL (0.11-0.59); #Neutrophils 2.7 thou/uL (1.40-6.50); %Basophils 0.9 % (0.0-1.0); %Eosinophils 13.4 % (0.0-10.0); %Lymphocytes 16.3 % (21.0-51.0); Hematocrit 25.1 % (42.0-52.0); Red Blood Cell (RBC) Count 2.95 mill/uL (4.70-6.10); White Blood Cell (WBC) Count 4.5 thou/uL (4.8-10.8)
[2017-08-06 06:10] LABS: Anion Gap 12 mmol/L (10-20); BUN (Urea Nitrogen) 35 mg/dL (8.4-25.7); Calc. Creatinine Clearance 15 mL/min (70-130); Carbon Dioxide 24 mmol/L (22-29); Chloride 104 mmol/L (98-107); Estimated GFR-MDRD 10; Magnesium 2.1 mg/dL (1.6-2.6)
--- NOTE | 2017-08-06 09:12 | ULT ---
BILATERAL UPPER EXTREMITY VENOUS AND ARTERIAL MAPPING: HISTORY: Evaluate prior to fistula placement. FINDINGS: Multiple longitudinal and transverse images of both upper extremities are obtained using a multihertz linear ray transducer. Real-time, color flow, and spectral waveform Doppler analysis was used to ev aluate both upper extremity arterial and venous systems. RIGHT UPPER EXTREMITY: Right brachial artery 4.6 mm Right radial artery 2.6 mm Right ulnar artery 2.6 mm. RIGHT UPPER EXTREMITY VENOUS: RIGHT CEPHALIC VEIN: Proximal humeral 1.9 mm Mid humeral 2.0 mm Distal humeral 2.6 mm Antecubital 1.5 mm Proximal, mid and distal right forearm not visualized. RIGHT BASILIC VEIN: Proximal humeral 3.9 mm Mid humeral 3.9 mm Distal humeral 4.3 mm Antecubital 2.1 mm Proximal forearm 1.0 mm Mid forearm 1.2 mm Distal forearm 1.0 mm LEFT UPPER EXTREMITY MEASUREMENTS: Left brachial artery 4.6 mm Left radial artery 2.9 mm Left ulnar artery 2.9 mm. LEFT UPPER EXTREMITY VENOUS: LEFT CEPHALIC VEIN: Proximal humeral not visualized Mid humeral 0.7 mm Distal humeral 1.1 mm Antecubital 0.9 mm Proximal 2.7 mm Mid forearm 3.0 mm Distal cephalic forearm measurements contains clot. LEFT BASILIC VEIN: Proximal humeral 3.9 mm Mid humeral 3.7 mm Distal humeral 3.9 mm Antecubital 4.3 mm Proximal forearm 1.2 mm Mid forearm 1.1 mm Distal forearm 1.2 mm IMPRESSION: Right and left upper extremity arterial and venous measurements as given above. POS: [facility]
[2017-08-06] MEDS: Calcium Acetate 667 MG CAP PO SCH ×3 (09:32→21:46)
[2017-08-06] MEDS: NIFEdipine XL 30 MG TAB PO SCH (09:33)
[2017-08-06] MEDS: Lisinopril 5 MG TAB PO SCH (09:33)
[2017-08-06] MEDS: hydrALAZINE 25 MG TAB PO SCH ×3 (09:33→21:46)
[2017-08-06] MEDS: Calcium Carbonate 500 MG ChewTAB PO SCH ×2 (09:33→21:46)
[2017-08-06] MEDS: Ferrous Sulfate 325 MG TAB PO SCH (09:33)
[2017-08-06] MEDS: Calcitriol 0.25 MCG CAP PO SCH (09:39)
[2017-08-06] MEDS ORDERED: CEFAZOLIN/Water 2 GM/20 ML SYRINGE SLOW IVP SCH (10:15)
[2017-08-06] MEDS ORDERED: Heparin 10,000 UNITS/ 10 ML VIAL ONE (11:00)
--- NOTE | 2017-08-06 11:01 | HP ---
HISTORY OF PRESENT ILLNESS: Moe Zepeda is a 61-year-old Bel[place]ian speaking only male who has a per radha to work here, but does not have any insurance, presents to the emergency room on 08/04/2017, Kristopher flores, with dyspnea, hypoxia requiring intubation. He has a history of type 2 diabetes mellitus, hype rlipidemia, high cholesterol, hypertension, chronic kidney disease, but has never been on dialysis be fore. He has had placement of a temporary femoral vein dialysis catheter. He is undergoing dialysis . He has had IV in his right antecubital area which upon my consult today and orders, this was remov ed. Ultrasound vein mapping obtained today revealed a right cephalic vein, 1.9 mm, 2 mm, 2.6 mm and 1.5 mm proximal and distal right forearm cephalic vein not visualized by ultrasound, although megana emery I can appreciate a cephalic vein at the wrist and basilic vein 3.9, 3.9, 4.3, 2.1 mm antecubital fossa, 1 mm proximal forearm. Left cephalic vein proximally was not visualized, 0.7 mm, 1.1 mm, ante cubital fossa 0.9 mm, basilic vein left 3.9, 3.7, 3.9 and 4.3 mm. ALLERGIES: None. TOBACCO: None. ALCOHOL: Socially. MEDICATIONS: As an outpatient iron sulfate a.m. 325 mg, Tums 1000 mg b.i.d., furosemide 40 mg twice a day, sodium bicarbonate 325 b.i.d., isosorbide mononitrate 30 mg p.o. daily, hydralazine 100 mg t.i .d., nifedipine 30 mg p.o. daily, pravastatin 20 mg at bedtime, calcitriol 1 cap p.o. daily, calcium acetate two caps p.o. t.i.d., allopurinol 100 mg p.o. daily. PAST SURGICAL HISTORY: Noncontributory. PAST MEDICAL HISTORY: As noted above, hypertension, diabetes mellitus, hyperlipidemia, elevated chol esterol, and chronic kidney disease. SOCIAL HISTORY: Patient is . 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 He lives in [place]. PHYSICAL EXAMINATION: VITAL SIGNS: Height 5 foot, 260 pounds, 29 BMI 97.6, 85, 16. HEENT: Unremarkable. LUNGS: Clear to auscultation. CARDIAC: Regular rate and rhythm without murmur or gallop. ABDOMEN: Soft, nontender. EXTREMITIES: Palpable femoral, popliteal, dorsalis pedis pulses bilaterally, palpable radial pulses. Bandages antecubital area indicative of recent IVs, IV right antecubital area removed this morning after my consultation on orders. Palpable radial pulses cephalic vein, right wrist, visibly seen and moderate size. LABORATORY DATA: Laboratories as noted above. White count 4, hemoglobin 8.7, sodium 136, potassium 3.9, BUN 35, creatinine 5.6, GFR 10. ASSESSMENT AND PLAN: 1. End-stage renal disease presenting with a history of chronic kidney disease known and had IV righ t antecubital placed in the emergency room. Apparently, this was removed this morning after my consu ltation and orders, we will plan placement of hemodialysis catheter cuffed tunneled and probable cent ral line and a right arm fistula, possible left arm fistula or graft as indicated tomorrow. We will plan this under general anesthesia. 2. Diabetes mellitus. 3. Hypertension. 4. Elevated cholesterol.
--- NOTE | 2017-08-06 11:32 | PRG ---
DATE OF SERVICE: 08/06/2017 SUBJECTIVE: This is a 61-year-old gentleman being seen for end-stage renal disease. Patient denies any nausea, vomiting or chest pain. PHYSICAL EXAMINATION: GENERAL: Patient is awake, alert. VITAL SIGNS: Afebrile, pulse 83, breathing at 16, blood pressure 154/77. OBJECTIVE: See above. Awake, alert, in no acute distress. GENERAL APPEARANCE AND MENTAL STATUS: Fair. HEAD/NECK: Normocephalic. Atraumatic. EYES: EOMI. No deformity. EARS: Clear. No ulcers. NOSE: Intact. No lesions. MOUTH: Clear. No discharge. THROAT: Clear. No exudate. LUNGS: Clear. No crackles. CARDIAC: S1, S2. No rub. ABDOMEN: Benign. BS+. GENITALIA/RECTUM: Teague absent. BACK/EXTREMITIES: Edema 0+ Ulcer- NEUROLOGICAL: Alert and motor intact. SKIN: Rash- Bruise- LYMPHATICS: Edema- Ulcer- LABORATORY DATA: Hemoglobin 8.7. ASSESSMENT AND RECOMMENDATIONS: 1. Stage 6 chronic kidney disease, continue hemodialysis. 2. Hypertension, stable. 3. Anemia, stable. 4. Medications based on glomerular filtration rate are appropriate. Discharge planning is in progress.
[2017-08-06] MEDS: Heparin 5,000 UNITS/ML VIAL SC SCH ×2 (11:38→21:49)
--- NOTE | 2017-08-06 12:14 | PRG ---
DATE OF SERVICE: 08/06/2017 Mr. Zepeda is tentatively scheduled for a vascular access. He is continued on hemodialysis. PHYSICAL EXAMINATION: VITAL SIGNS: Blood pressure 154/77. Respiratory rate 18, heart rate 80s. There is no change in his exam. IMPRESSION AND PLAN: End-stage renal disease for dialysis access surgically today. He is clinically stable.
--- NOTE | 2017-08-06 14:41 | PDOC.PN ---
- Subjective Encounter Start Date: 08/06/17 Encounter Start Time: 14:39 Subjective: feels good. 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 using automotive tire technician phone -: no new complaints - Objective Resuscitation Status: Resuscitation Status FULL:Full Resuscitation MAR Reviewed: Yes Vital Signs & Weight: Vital Signs (12 hours) Temp Pulse Resp BP Pulse Ox 08/06/17 10:58 98.3 F 83 16 154/77 H 96 08/06/17 09:33 85 08/06/17 08:00 97.6 F 85 16 95 08/06/17 07:54 97.6 F 85 16 162/79 H 95 08/06/17 05:23 99.1 F 92 18 08/06/17 04:26 95 Weight Admit Weight 169 lb 1.513 oz Weight 160 lb 1.6 oz Most Recent Monitor Data Heart Rate from ECG 94 NIBP 185/103 NIBP BP-Mean 156 Respiration from ECG 16 SpO2 100 I&O: 08/05/17 08/06/17 08/07/17 06:59 06:59 06:59 Intake Total 683 1180 Output Total 433 200 Balance 250 980 Result Diagrams: 08/06/17 05:41 08/06/17 05:41 Phys Exam - Physical Examination Constitutional: NAD HEENT: PERRLA, moist MMs, sclera anicteric, oral pharynx no lesions, 2+ tonsils Neck: no nodes, no JVD, supple, full ROM Respiratory: no wheezing, no rales, no rhonchi, clear to auscultation bilateral Cardiovascular: RRR, no significant murmur, no rub, gallop Gastrointestinal: soft, non-tender, no distention, positive bowel sounds Musculoskeletal: no edema, pulses present Neurological: non-focal, normal sensation, moves all 4 limbs Psychiatric: normal affect, A&O x 3 Skin: no rash Dx/Plan (1) Acute worsening of stage 4 chronic kidney disease Code(s): N28.9 - DISORDER OF KIDNEY AND URETER, UNSPECIFIED; N18.4 - CHRONIC KIDNEY DISEASE, STAGE 4 (SEVERE) Status: Acute (2) Pulmonary edema with congestive heart failure Code(s): I50.1 - LEFT VENTRICULAR FAILURE, UNSPECIFIED Status: Resolved (3) Acute respiratory failure with hypoxemia Code(s): J96.01 - ACUTE RESPIRATORY FAILURE WITH HYPOXIA Status: Resolved (4) Metabolic acidosis Code(s): E87.2 - ACIDOSIS Status: Resolved Comment: resolving (5) Acute on chronic combined systolic and diastolic congestive heart failure Code(s): I50.43 - ACUTE ON CHRONIC COMBINED SYSTOLIC AND DIASTOLIC HRT FAIL Status: Resolved (6) Anemia of renal disease Code(s): D63.1 - ANEMIA IN CHRONIC KIDNEY DISEASE Status: Chronic (7) DM type 2 (diabetes mellitus, type 2) Status: Chronic Qualifiers: Diabetes mellitus complication status: with kidney complications Diabetes mellitus complication detail: with chronic kidney disease Diabetes mellitus intermediate insulin use: without intermediate use Chronic kidney disease stage: stage 4 (severe) Qualified Code(s): E11.22 - Type 2 diabetes mellitus with diabetic chronic kidney disease; N18.4 - Chronic kidney disease, stage 4 (severe ); N18.4 - Chronic kidney disease, stage 4 (severe); N18.4 - Chronic kidney disease, stage 4 (severe); N18.4 - Chronic kidney disease, stage 4 (severe) (8) Secondary hyperparathyroidism of renal origin Code(s): N25.81 - SECONDARY HYPERPARATHYROIDISM OF RENAL ORIGIN Status: Chronic (9) HTN (hypertension) Code(s): I10 - ESSENTIAL (PRIMARY) HYPERTENSION Status: Acute - Plan DVT proph w/SCDs HD per nephrology.monitor labs. -: OP HD set up in progress. -: to OR today for HD access placement by GS.appreciate input. -: hemodynamically stable. -: add Lisinopril as BP remains high in pt w CKD.monitor * . Review of Systems - Review of Systems Constitutional: negative: Fever, Chills, Sweats, Weakness, Malaise, Other ENT: negative: Ear Pain, Ear Discharge, Nose Pain, Nose Discharge, Nose Congestion, Mouth Pain, Mouth Swelling, Throat Pain, Throat Swelling, Other Respiratory: negative: Cough, Dry, Shortness of Breath, Hemoptysis, SOB with Excertion, Pleuritic Pain, Sputum, Wheezing Cardiovascular: negative: Chest Pain, Palpitations, Orthopnea, Paroxysmal Noc. Dyspnea, Edema, Light Headedness, Other Gastrointestinal: negative: Nausea, Vomiting, Abdominal Pain, Diarrhea, Constipation, Melena, Hematochezia, Other Genitourinary: negative: Dysuria, Frequency, Incontinence, Hematuria, Retention , Other Musculoskeletal: negative: Neck Pain, Shoulder Pain, Arm Pain, Back Pain, Hand Pain, Leg Pain, Foot Pain, Other Neurological: negative: Weakness, Numbness, Incoordination, Change in Speech, Confusion, Seizures, Other - Medications/Allergies Allergies/Adverse Reactions: Allergies Allergy/AdvReac Type Severity Reaction Status Date / Time No Known Drug Allergies Allergy Verified 08/03/17 22:29 Medications: Current Medications Calcitriol (Rocaltrol) 0.25 mcg PO DAILY [facility] Last Admin: 08/06/17 09:39 Dose: 0.25 mcg Calcium Acetate (Phoslo) 1,334 mg PO TID [facility] Last Admin: 08/06/17 09:32 Dose: 1,334 mg Calcium Carbonate (Tums) 1,000 mg PO BID [facility] Last Admin: 08/06/17 09:33 Dose: 1,000 mg Cefazolin Sodium (Ancef) 2 gm SLOW IVP WILLCALL [facility] Epoetin Branden (Procrit) 10,000 units IVP [facility]CALL [facility] Last Admin: 08/04/17 10:41 Dose: 10,000 units Ferrous Sulfate (Feosol) 325 mg PO QA-[facility] Last Admin: 08/06/17 09:33 Dose: 325 mg Heparin Sodium (Porcine) (Heparin) 5,000 units SC BID [facility] Last Admin: 08/06/17 11:38 Dose: 5,000 units Hydralazine HCl (Apresoline) 25 mg PO TID [facility] Last Admin: 08/06/17 09:33 Dose: 25 mg Isosorbide Mononitrate (Imdur Er) 30 mg PO DAILY [facility] Last Admin: 08/06/17 09:32 Dose: 30 mg Lisinopril (Zestril) 5 mg PO DAILY [facility] Last Admin: 08/06/17 09:33 Dose: 5 mg Nifedipine (Procardia Xl) 30 mg PO DAILY [facility] Last Admin: 08/06/17 09:33 Dose: 30 mg Pantoprazole Sodium (Protonix) 40 mg PO DAILY [facility] Last Admin: 08/06/17 09:33 Dose: 40 mg Pravastatin Sodium (Pravachol) 20 mg PO HS [facility] Last Admin: 08/05/17 20:42 Dose: 20 mg Sodium Chloride (Flush - Normal Saline) 10 ml IVF Q12HR [facility] Last Admin: 08/06/17 09:34 Dose: 10 ml Sodium Chloride (Flush - Normal Saline) 10 ml IVF PRN PRN PRN Reason: Saline Flush Sodium Chloride (Flush - Normal Saline) 10 ml IVF PRN PRN PRN Reason: Saline Flush
[2017-08-06] MEDS: Pravastatin Sodium 20 MG TAB PO SCH (21:46)
[2017-08-07 07:36] LABS: #Eosinphils 0.6 thou/uL (0.0-0.7); #Lymphocytes 0.8 thou/uL (1.20-3.40); #Monocytes 0.5 thou/uL (0.11-0.59); #Neutrophils 3.2 thou/uL (1.40-6.50); %Basophils 0.7 % (0.0-1.0); %Eosinophils 11.4 % (0.0-10.0); %Lymphocytes 16.3 % (21.0-51.0); Hematocrit 26.8 % (42.0-52.0); Mean Platelet Volume 8.3 fL (7.4-10.4); Red Blood Cell (RBC) Count 3.17 mill/uL (4.70-6.10); White Blood Cell (WBC) Count 5.2 thou/uL (4.8-10.8)
[2017-08-07 07:53] LABS: Anion Gap 13 mmol/L (10-20); BUN (Urea Nitrogen) 28 mg/dL (8.4-25.7); Calc. Creatinine Clearance 17 mL/min (70-130); Calcium 8.8 mg/dL (7.8-10.44); Carbon Dioxide 24 mmol/L (22-29); Chloride 103 mmol/L (98-107); Estimated GFR-MDRD 13; Magnesium 1.9 mg/dL (1.6-2.6); Phosphorus 2.8 mg/dL (2.3-4.7)
[2017-08-07] MEDS: Calcium Acetate 667 MG CAP PO SCH ×3 (09:21→21:25)
[2017-08-07] MEDS: Heparin 5,000 UNITS/ML VIAL SC SCH ×2 (09:21→21:25)
[2017-08-07] MEDS: Calcium Carbonate 500 MG ChewTAB PO SCH ×2 (09:21→21:25)
[2017-08-07] MEDS: Ferrous Sulfate 325 MG TAB PO SCH (09:21)
[2017-08-07] MEDS: Calcitriol 0.25 MCG CAP PO SCH (09:21)
[2017-08-07] MEDS: NIFEdipine XL 30 MG TAB PO SCH (09:41)
[2017-08-07] MEDS: Lisinopril 5 MG TAB PO SCH (09:41)
[2017-08-07] MEDS: hydrALAZINE 25 MG TAB PO SCH ×3 (09:41→21:25)
--- NOTE | 2017-08-07 11:40 | PRG ---
DATE OF SERVICE: 08/07/2017 SUBJECTIVE: This is a 61-year-old gentleman being seen for end-stage renal disease. The patient denies any nausea, vomiting or chest pain. PHYSICAL EXAMINATION: GENERAL: The patient is awake, alert. VITAL SIGNS: Afebrile, pulse 80, breathing at 16, blood pressure 156/77. GENERAL APPEARANCE AND MENTAL STATUS: Fair. HEAD/NECK: Normocephalic. Atraumatic. EYES: EOMI. No deformity. EARS: Clear. No ulcers. NOSE: Intact. No lesions. MOUTH: Clear. No discharge. THROAT: Clear. No exudate. LUNGS: Clear. No crackles. CARDIAC: S1, S2. No rub. ABDOMEN: Benign. BS+. GENITALIA/RECTUM: Teague absent. BACK/EXTREMITIES: Edema 0+ Ulcer- NEUROLOGICAL: Alert and motor intact. SKIN: Rash- Bruise- LYMPHATICS: Edema- Ulcer- LABORATORY: Hemoglobin 9.4. ASSESSMENT AND RECOMMENDATIONS: 1. Stage 6 chronic kidney disease, stable. 2. Hypertension, stable. 3. Anemia, stable. 4. Medications based on glomerular filtration rate are appropriate. 5. Discharge planning is in progress. [facility]
--- NOTE | 2017-08-07 13:04 | PDOC.PN ---
- Subjective Encounter Start Date: 08/07/17 Encounter Start Time: 13:02 Subjective: feels well.no new complaints - Objective Resuscitation Status: Resuscitation Status FULL:Full Resuscitation MAR Reviewed: Yes Vital Signs & Weight: Vital Signs (12 hours) Temp Pulse Resp BP Pulse Ox 08/07/17 12:15 98.8 F 80 16 161/86 H 99 08/07/17 09:41 80 08/07/17 07:50 98 F 80 16 08/07/17 07:45 98.3 F 81 18 156/77 H 99 Weight Admit Weight 169 lb 1.513 oz Weight 159 lb 8 oz Most Recent Monitor Data Heart Rate from ECG 94 NIBP 185/103 NIBP BP-Mean 156 Respiration from ECG 16 SpO2 100 I&O: 08/06/17 08/07/17 08/08/17 06:59 06:59 06:59 Intake Total 1180 1550 Output Total 200 Balance 980 1550 Result Diagrams: 08/07/17 07:24 08/07/17 07:24 Phys Exam - Physical Examination Constitutional: NAD HEENT: PERRLA, moist MMs, sclera anicteric, oral pharynx no lesions Neck: no nodes, no JVD, supple, full ROM Respiratory: no wheezing, no rales, no rhonchi, clear to auscultation bilateral Cardiovascular: RRR, no significant murmur, no rub, gallop Gastrointestinal: soft, non-tender, no distention, positive bowel sounds Musculoskeletal: no edema, pulses present Neurological: non-focal, normal sensation, moves all 4 limbs Psychiatric: normal affect, A&O x 3 Skin: no rash Dx/Plan (1) Acute worsening of stage 4 chronic kidney disease Code(s): N28.9 - DISORDER OF KIDNEY AND URETER, UNSPECIFIED; N18.4 - CHRONIC KIDNEY DISEASE, STAGE 4 (SEVERE) Status: Acute (2) Pulmonary edema with congestive heart failure Code(s): I50.1 - LEFT VENTRICULAR FAILURE, UNSPECIFIED Status: Resolved (3) Acute respiratory failure with hypoxemia Code(s): J96.01 - ACUTE RESPIRATORY FAILURE WITH HYPOXIA Status: Resolved (4) Metabolic acidosis Code(s): E87.2 - ACIDOSIS Status: Resolved Comment: resolving (5) Acute on chronic combined systolic and diastolic congestive heart failure Code(s): I50.43 - ACUTE ON CHRONIC COMBINED SYSTOLIC AND DIASTOLIC HRT FAIL Status: Resolved (6) Anemia of renal disease Code(s): D63.1 - ANEMIA IN CHRONIC KIDNEY DISEASE Status: Chronic (7) DM type 2 (diabetes mellitus, type 2) Status: Chronic Qualifiers: Diabetes mellitus complication status: with kidney complications Diabetes mellitus complication detail: with chronic kidney disease Diabetes mellitus buttermaker helper insulin use: without group home use Chronic kidney disease stage: stage 4 (severe) Qualified Code(s): E11.22 - Type 2 diabetes mellitus with diabetic chronic kidney disease; N18.4 - Chronic kidney disease, stage 4 (severe ); N18.4 - Chronic kidney disease, stage 4 (severe); N18.4 - Chronic kidney disease, stage 4 (severe); N18.4 - Chronic kidney disease, stage 4 (severe) (8) Secondary hyperparathyroidism of renal origin Code(s): N25.81 - SECONDARY HYPERPARATHYROIDISM OF RENAL ORIGIN Status: Chronic (9) HTN (hypertension) Code(s): I10 - ESSENTIAL (PRIMARY) HYPERTENSION Status: Acute - Plan stable renal function.OP HD set up in process. -: To OR today for HD fistula placement. -: monitor .Nephrology following. -: cont procrit. -: BP controlled on current meds * . Review of Systems - Review of Systems Constitutional: negative: Fever, Chills, Sweats, Weakness, Malaise, Other ENT: negative: Ear Pain, Ear Discharge, Nose Pain, Nose Discharge, Nose Congestion, Mouth Pain, Mouth Swelling, Throat Pain, Throat Swelling, Other Respiratory: negative: Cough, Dry, Shortness of Breath, Hemoptysis, SOB with Excertion, Pleuritic Pain, Sputum, Wheezing Cardiovascular: negative: Chest Pain, Palpitations, Orthopnea, Paroxysmal Noc. Dyspnea, Edema, Light Headedness, Other Gastrointestinal: negative: Nausea, Vomiting, Abdominal Pain, Diarrhea, Constipation, Melena, Hematochezia, Other Genitourinary: negative: Dysuria, Frequency, Incontinence, Hematuria, Retention , Other Musculoskeletal: negative: Neck Pain, Shoulder Pain, Arm Pain, Back Pain, Hand Pain, Leg Pain, Foot Pain, Other Skin: negative: Rash, Lesions, Reji, Bruising, Other Neurological: negative: Weakness, Numbness, Incoordination, Change in Speech, Confusion, Seizures, Other - Medications/Allergies Allergies/Adverse Reactions: Allergies Allergy/AdvReac Type Severity Reaction Status Date / Time No Known Drug Allergies Allergy Verified 08/03/17 22:29 Medications: Current Medications Calcitriol (Rocaltrol) 0.25 mcg PO DAILY [facility] Last Admin: 08/07/17 09:21 Dose: Not Given Calcium Acetate (Phoslo) 1,334 mg PO TID [facility] Last Admin: 08/07/17 09:21 Dose: Not Given Calcium Carbonate (Tums) 1,000 mg PO BID [facility] Last Admin: 08/07/17 09:21 Dose: Not Given Cefazolin Sodium (Ancef) 2 gm SLOW IVP WILLCALL [facility] Epoetin Branden (Procrit) 10,000 units IVP [facility]CALL [facility] Last Admin: 08/04/17 10:41 Dose: 10,000 units Ferrous Sulfate (Feosol) 325 mg PO QAM-WM [facility] Last Admin: 08/07/17 09:21 Dose: Not Given Heparin Sodium (Porcine) (Heparin) 5,000 units SC BID [facility] Last Admin: 08/07/17 09:21 Dose: Not Given Hydralazine HCl (Apresoline) 25 mg PO TID [facility] Last Admin: 08/07/17 09:41 Dose: 25 mg Isosorbide Mononitrate (Imdur Er) 30 mg PO DAILY [facility] Last Admin: 08/07/17 09:41 Dose: 30 mg Lisinopril (Zestril) 5 mg PO DAILY [facility] Last Admin: 08/07/17 09:41 Dose: 5 mg Nifedipine (Procardia Xl) 30 mg PO DAILY [facility] Last Admin: 08/07/17 09:41 Dose: 30 mg Pantoprazole Sodium (Protonix) 40 mg PO DAILY [facility] Last Admin: 08/07/17 09:42 Dose: 40 mg Pravastatin Sodium (Pravachol) 20 mg PO HS [facility] Last Admin: 08/06/17 21:46 Dose: 20 mg Sodium Chloride (Flush - Normal Saline) 10 ml IVF Q12HR [facility] Last Admin: 08/07/17 09:41 Dose: Not Given Sodium Chloride (Flush - Normal Saline) 10 ml IVF PRN PRN PRN Reason: Saline Flush Sodium Chloride (Flush - Normal Saline) 10 ml IVF PRN PRN PRN Reason: Saline Flush
[2017-08-07] MEDS ORDERED: CEFAZOLIN/Water 2 GM/20 ML SYRINGE ONE (13:38)
[2017-08-07] MEDS ORDERED: Heparin 5,000 UNITS/ML VIAL ONE (14:45)
[2017-08-07] MEDS ORDERED: Bupivacaine/Epinephrine 0.25% 30 ML VIAL ONE (14:45)
[2017-08-07] MEDS ORDERED: Protamine Sulfate 50 MG/5 ML VIAL ONE (14:45)
[2017-08-07] MEDS ORDERED: Iopamidol 20 ML ONE (14:45)
[2017-08-07] MEDS ORDERED: Heparin 10,000 UNITS/1 ML VIAL ONE (14:46)
[2017-08-07] MEDS ORDERED: Fentanyl 100 MCG/2 ML VIAL ONE (15:08)
[2017-08-07] MEDS ORDERED: Lidocaine 2% w/Epinephrine 1:200K 20 ML VIAL ONE (15:46)
[2017-08-07] MEDS ORDERED: Lidocaine 1% PF 5 ML VIAL ONE (16:42)
[2017-08-07] MEDS ORDERED: Propofol 200 MG/20 ML VIAL ONE (16:42)
[2017-08-07] MEDS ORDERED: Ondansetron HCl/PF 4 MG/2 ML Vial ONE (16:42)
[2017-08-07] MEDS ORDERED: PHENYLEPHRINE-NS 100 MCG/ML 10 ML SYRINGE ONE (16:42)
[2017-08-07] MEDS ORDERED: ePHEDrine/0.9% NaCl/PF SYRINGE 50 mg/10 ml ONE (16:42)
[2017-08-07] MEDS ORDERED: Heparin 10,000 UNITS/ 10 ML VIAL ONE (16:42)
[2017-08-07] MEDS ORDERED: Acetaminophen 500 MG TAB PO PRN (17:59)
[2017-08-07] MEDS ORDERED: traMADol HCl 50 MG TAB PO PRN ×2 (17:59)
[2017-08-07] MEDS: Pravastatin Sodium 20 MG TAB PO SCH (21:25)
--- NOTE | 2017-08-07 21:43 | RAD ---
ONE VIEW CHEST: HISTORY: HemoSplit dialysis placement and central line placement. COMPARISON: 08/05/2017 FINDINGS: Interval placement of a right-sided HemoSplit dialysis catheter with the distal tip projecting in the expected region of the superior vena cava. There is also interval placement of a left-sided interna l jugular venous catheter with the distal tip projecting over the SVC/right atrial junction. Heart s ize is normal. The pulmonary vessels and hilum are normal. No pleural effusion. Pneumothorax is no t appreciated. IMPRESSION: HemoSplit dialysis catheter and left-sided central venous catheter, as above. No pneumothorax. POS: JÚNIOR
--- NOTE | 2017-08-07 22:28 | OP ---
DATE: 08/07/2017 PREOPERATIVE DIAGNOSIS: End-stage renal disease, poor IV access. POSTOPERATIVE DIAGNOSIS: End-stage renal disease, poor IV access. PROCEDURE: Right IJ cuffed tunnel hemodialysis catheter. Left IJ triple lumen catheter. Ultrasound fluoroscopy used for placement of both. Left arm primary fistula, arterial inflow proximal radial a rtery of excellent caliber without arteriosclerotic disease, outflow perforating branch antecubital v ein to basilic vein without communication to the cephalic vein. Retrograde antecubital vein preserve d. A 3.5 mm coronary dilator is out the basilic vein outflow. Good Doppler signal noted in the basi lic vein outflow at the end of the procedure. The patient will need a basilic vein transposition fis shiraz in the next 4-6 weeks to finalize his fistula. SURGEON: Dr. Mika Oakes ANESTHESIA: General. Local 0.25% Marcaine with epinephrine, 30 mL, mixed with 1% Xylocaine with epi nephrine, 30 mL. DESCRIPTION OF PROCEDURE: Patient was taken to the operating room where under general LMA anesthesia , the neck, chest, left upper extremity was prepared with chloraprep, draped in routine fashion. Loc al anesthetic mixture infiltrated into skin and subcutaneous tissue about all operative sites. Using Ultrasound guidance, the right and left internal jugular veins were cannulated with trocar catheter and J wires threaded in the right and left internal jugular veins. Trocar catheter removed. Skin in cised and enlarged sharply. Stab incision made on the right chest. A small dilator was placed over the J-wire into the left internal jugular vein and central line placed using Seldinger technique. We removed the J-wire, securing the catheter with 3-0 nylon suture, Biopatch and each port aspirated bl ood and flushed with saline solution. On the right side, the precurved angiodynamics cuffed tunnel hemodialysis catheter tunneled between t he two incisions, placing the exit site over the right chest with a fabric cuff just beneath the skin and securing the catheter with 3-0 Nylon suture and Biopatch applied. Smaller and medium sized dila tors placed over the J-wire into the internal jugular vein right and removed. Dilator and pull-away sheath placed over the J-wire in the superior vena cava and dilator and J-wire removed. Catheter jose janis with pull-away sheath. Pull-away sheath removed. Platysma approximated with 4-0 Monocryl, skin with subdermal 4-0 Monocryl. Each port aspirated blood and flushed with saline solution and heparini zed saline solution, 1000 units heparin per mL indicated volume of the port. Sterile dressings appli ed. Fluoroscopic images revealed good line placement. Incision was made in the proximal volar forearm left and carried down through the skin and subcutaneo us tissue longitudinally identifying excellent caliber basilic vein. There was no communication to t he cephalic vein. Small branches divided between 4-0 silk ties and clips. Perforating branch of ant ecubital vein dissected free down to the branch points which were dissected free and branch points di vided between 3-0 silk ties, 4-0 silk ties and clips. The branch point was translated over the [facility] h point. The patient was given 5000 units of heparin intravenously. The proximal radial artery was dissected free, clamped proximally and distally after adequate heparin circulation time. A perforati ng branch antecubital vein spatulated over the branch point and coronary dilators placed, coronary di lators from a 2 mm to a 3.5 mm coronary dilator out the basilic vein outflow. There was no obstructi on. It was flushed with heparinized saline solution. Atraumatic bulldog clamps applied and anastomo sis of the end spatulated perforating branch antecubital vein anastomosed to the side of the proximal radial artery after making an arteriotomy sharply and elongated with the Matt scissors and continuo us suture of 6-0 Prolene used for the anastomosis, releasing the clamps, noting excellent flow in the fistula evident by Doppler interrogation. Surgicel applied. Good hemostasis noted. The patient wa s given 25 mg intravenously protamine by Anesthesia. Subcutaneous tissues approximated with 3-0 Bullitt cryl, skin with subdermal 4-0 Monocryl and DermaGlue applied. The patient tolerated the procedure we ll.
[2017-08-08 04:35] LABS: #Eosinphils 0.4 thou/uL (0.0-0.7); #Lymphocytes 0.6 thou/uL (1.20-3.40); #Monocytes 0.5 thou/uL (0.11-0.59); %Basophils 0.2 % (0.0-1.0); %Eosinophils 8.9 % (0.0-10.0); %Lymphocytes 13.5 % (21.0-51.0); %Monocytes 10.1 % (0.0-10.0); Hematocrit 21.9 % (42.0-52.0); Red Blood Cell (RBC) Count 2.57 mill/uL (4.70-6.10); White Blood Cell (WBC) Count 4.5 thou/uL (4.8-10.8)
[2017-08-08 04:40] LABS: Anion Gap 11 mmol/L (10-20); BUN (Urea Nitrogen) 30 mg/dL (8.4-25.7); Calc. Creatinine Clearance 15 mL/min (70-130); Carbon Dioxide 27 mmol/L (22-29); Chloride 105 mmol/L (98-107); Estimated GFR-MDRD 11; Phosphorus 4.4 mg/dL (2.3-4.7)
[2017-08-08] MEDS ORDERED: Heparin 10,000 UNITS/ 10 ML VIAL ONE (07:21)
[2017-08-08] MEDS: Calcium Carbonate 500 MG ChewTAB PO SCH ×2 (08:18→22:22)
[2017-08-08] MEDS: hydrALAZINE 25 MG TAB PO SCH ×3 (08:19→22:22)
[2017-08-08] MEDS: Calcitriol 0.25 MCG CAP PO SCH (08:19)
[2017-08-08] MEDS: Lisinopril 5 MG TAB PO SCH (08:20)
[2017-08-08] MEDS: Heparin 5,000 UNITS/ML VIAL SC SCH ×2 (08:21→22:23)
[2017-08-08] MEDS: Ferrous Sulfate 325 MG TAB PO SCH (08:21)
[2017-08-08] MEDS: NIFEdipine XL 30 MG TAB PO SCH (08:21)
[2017-08-08] MEDS: Calcium Acetate 667 MG CAP PO SCH ×3 (08:21→22:22)
--- NOTE | 2017-08-08 10:48 | PDOC.PN ---
- Subjective Encounter Start Date: 08/08/17 Encounter Start Time: 07:00 -: old records requested/rev pt is doing well, pt is getting HD as per nephrology, Patient seen and examined. No new complaints. No overnight events - Objective Resuscitation Status: Resuscitation Status FULL:Full Resuscitation MAR Reviewed: Yes Vital Signs & Weight: Vital Signs (12 hours) Temp Pulse Resp BP BP Pulse Ox 08/08/17 08:21 85 162/78 H 08/08/17 08:20 85 162/78 H 08/08/17 08:19 85 162/78 H 08/08/17 08:00 98.6 F 85 16 08/08/17 07:30 98.6 F 85 16 160/78 H 95 08/08/17 03:54 98.8 F 84 16 155/77 H 96 08/07/17 23:37 98.7 F 79 16 137/74 97 Weight Admit Weight 169 lb 1.513 oz Weight 161 lb 6.4 oz Most Recent Monitor Data Heart Rate from ECG 94 NIBP 185/103 NIBP BP-Mean 156 Respiration from ECG 16 SpO2 100 I&O: 08/07/17 08/08/17 08/09/17 06:59 06:59 06:59 Intake Total 1550 300 Balance 1550 300 Result Diagrams: 08/08/17 03:45 08/08/17 03:45 Additional Labs: Accuchecks 08/07/17 13:41 POC Glucose 83 Phys Exam - Physical Examination Constitutional: NAD HEENT: PERRLA, moist MMs, sclera anicteric Neck: no JVD, supple Respiratory: no wheezing, no rales, no rhonchi Cardiovascular: RRR, no significant murmur, no rub Gastrointestinal: soft, non-tender, no distention, positive bowel sounds Musculoskeletal: no edema, pulses present Neurological: non-focal, normal sensation Lymphatic: no nodes Psychiatric: normal affect, A&O x 3 Skin: no rash, normal turgor Dx/Plan (1) ESRD needing dialysis Code(s): N18.6 - END STAGE RENAL DISEASE; Z99.2 - DEPENDENCE ON RENAL DIALYSIS Status: Acute (2) Acute on chronic combined systolic and diastolic CHF (congestive heart failure) Code(s): I50.43 - ACUTE ON CHRONIC COMBINED SYSTOLIC AND DIASTOLIC HRT FAIL Status: Acute (3) Acute worsening of stage 4 chronic kidney disease Code(s): N28.9 - DISORDER OF KIDNEY AND URETER, UNSPECIFIED; N18.4 - CHRONIC KIDNEY DISEASE, STAGE 4 (SEVERE) Status: Acute (4) Anemia of renal disease Code(s): D63.1 - ANEMIA IN CHRONIC KIDNEY DISEASE Status: Chronic (5) DM type 2 (diabetes mellitus, type 2) Status: Chronic Qualifiers: Diabetes mellitus complication status: with kidney complications Diabetes mellitus complication detail: with chronic kidney disease Diabetes mellitus shelter insulin use: without parts counterman use Chronic kidney disease stage: stage 4 (severe) Qualified Code(s): E11.22 - Type 2 diabetes mellitus with diabetic chronic kidney disease; N18.4 - Chronic kidney disease, stage 4 (severe ); N18.4 - Chronic kidney disease, stage 4 (severe); N18.4 - Chronic kidney disease, stage 4 (severe); N18.4 - Chronic kidney disease, stage 4 (severe) (6) HTN (hypertension) Code(s): I10 - ESSENTIAL (PRIMARY) HYPERTENSION Status: Chronic (7) Hyperuricemia Code(s): E79.0 - HYPERURICEMIA W/O SIGNS OF INFLAM ARTHRIT AND TOPHACEOUS DIS Status: Chronic (8) Noncompliance with medication regimen Code(s): Z91.14 - PATIENT'S OTHER NONCOMPLIANCE WITH MEDICATION REGIMEN Status : Chronic (9) Secondary hyperparathyroidism of renal origin Code(s): N25.81 - SECONDARY HYPERPARATHYROIDISM OF RENAL ORIGIN Status: Chronic (10) Vitamin D deficiency Code(s): E55.9 - VITAMIN D DEFICIENCY, UNSPECIFIED Status: Chronic (11) Acute respiratory failure with hypoxemia Code(s): J96.01 - ACUTE RESPIRATORY FAILURE WITH HYPOXIA Status: Resolved (12) Metabolic acidosis Code(s): E87.2 - ACIDOSIS Status: Resolved Comment: resolving (13) Pulmonary edema with congestive heart failure Code(s): I50.1 - LEFT VENTRICULAR FAILURE, UNSPECIFIED Status: Resolved - 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, 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 * continue HD as per nephrology * spoke with [employer], as pt is undocumented he may not be able to get dialysis chair * medication reviewed as below * symptomatic treatment * will adjust BP medication today * will add coreg 12.5 mg po bid Review of Systems - Review of Systems ENT: negative: Ear Pain, Ear Discharge, Nose Pain, Nose Discharge, Nose Congestion, Mouth Pain, Mouth Swelling, Throat Pain, Throat Swelling, Other Respiratory: negative: Cough, Dry, Shortness of Breath, Hemoptysis, SOB with Excertion, Pleuritic Pain, Sputum, Wheezing Cardiovascular: negative: Chest Pain, Palpitations, Orthopnea, Paroxysmal Noc. Dyspnea, Edema, Light Headedness, Other Gastrointestinal: negative: Nausea, Vomiting, Abdominal Pain, Diarrhea, Constipation, Melena, Hematochezia, Other Genitourinary: negative: Dysuria, Frequency, Incontinence, Hematuria, Retention , Other Musculoskeletal: negative: Neck Pain, Shoulder Pain, Arm Pain, Back Pain, Hand Pain, Leg Pain, Foot Pain, Other - Medications/Allergies Allergies/Adverse Reactions: Allergies Allergy/AdvReac Type Severity Reaction Status Date / Time No Known Drug Allergies Allergy Verified 08/03/17 22:29 Medications: Current Medications Acetaminophen (Tylenol) 1,000 mg PO Q6H PRN PRN Reason: Moderate to Severe Pain (6-10) Calcitriol (Rocaltrol) 0.25 mcg PO DAILY [facility] Last Admin: 08/08/17 08:19 Dose: 0.25 mcg Calcium Acetate (Phoslo) 1,334 mg PO TID [facility] Last Admin: 08/08/17 08:21 Dose: 1,334 mg Calcium Carbonate (Tums) 1,000 mg PO BID [facility] Last Admin: 08/08/17 08:18 Dose: 1,000 mg Cefazolin Sodium (Ancef) 2 gm SLOW IVP [facility]CALL [facility] Epoetin Branden (Procrit) 10,000 units IVP [facility] Last Admin: 08/04/17 10:41 Dose: 10,000 units Ferrous Sulfate (Feosol) 325 mg PO QA[facility] Last Admin: 08/08/17 08:21 Dose: 325 mg Heparin Sodium (Porcine) (Heparin) 5,000 units SC BID [facility] Last Admin: 08/08/17 08:21 Dose: 5,000 units Hydralazine HCl (Apresoline) 25 mg PO TID [facility] Last Admin: 08/08/17 08:19 Dose: 25 mg Isosorbide Mononitrate (Imdur Er) 30 mg PO DAILY [facility] Last Admin: 08/08/17 08:19 Dose: 30 mg Lisinopril (Zestril) 5 mg PO DAILY [facility] Last Admin: 08/08/17 08:20 Dose: 5 mg Nifedipine (Procardia Xl) 30 mg PO DAILY [facility] Last Admin: 08/08/17 08:21 Dose: 30 mg Pantoprazole Sodium (Protonix) 40 mg PO DAILY [facility] Last Admin: 08/08/17 08:20 Dose: 40 mg Pravastatin Sodium (Pravachol) 20 mg PO HS [facility] Last Admin: 08/07/17 21:25 Dose: 20 mg Sodium Chloride (Flush - Normal Saline) 10 ml IVF Q12HR [facility] Last Admin: 08/08/17 08:22 Dose: 10 ml Sodium Chloride (Flush - Normal Saline) 10 ml IVF PRN PRN PRN Reason: Saline Flush Tramadol HCl (Ultram) 50 mg PO Q6H PRN PRN Reason: Mild-Moderate Pain (1-5) Tramadol HCl (Ultram) 100 mg PO Q6H PRN PRN Reason: Moderate to Severe Pain (6-10)
--- NOTE | 2017-08-08 12:43 | PRG ---
DATE OF SERVICE: 08/08/2017 SUBJECTIVE: Mr. Moe Zepeda underwent left arm primary fistulae and placed on a hemodialysis cath eter yesterday. He has good thrill and bruit in his left arm. He has a basilic vein fistula and he will need a transposition as an outpatient in 4-6 weeks as a possible illegal system, he will be admi tted periodically for hemodialysis. I should see him in the future and while he is here, perform a b asilic vein transposition fistula in 3-6 weeks to work towards getting rid of his hemodialysis cathet er. I will see him as needed this hospitalization. We will attempt an outpatient follow up in est[place] in 3-4 weeks. If he is readmitted, please call us, so I can see him in the hospital. I will se e him as needed this hospitalization.
--- NOTE | 2017-08-08 12:49 | PRG ---
DATE OF SERVICE: 08/08/2017 SUBJECTIVE: This is a 61-year-old gentleman being seen for end-stage renal disease. The patient denies any nausea, vomiting or chest pain. PHYSICAL EXAMINATION: GENERAL: The patient is awake, alert. VITAL SIGNS: Afebrile, pulse 85, breathing at 16, blood pressure 160/78. GENERAL APPEARANCE AND MENTAL STATUS: Fair. HEAD/NECK: Normocephalic. Atraumatic. EYES: EOMI. No deformity. EARS: Clear. No ulcers. NOSE: Intact. No lesions. MOUTH: Clear. No discharge. THROAT: Clear. No exudate. LUNGS: Clear. No crackles. CARDIAC: S1, S2. No rub. ABDOMEN: Benign. BS+. GENITALIA/RECTUM: Teague absent. BACK/EXTREMITIES: Edema 0+ Ulcer- NEUROLOGICAL: Alert and motor intact. SKIN: Rash- Bruise- LYMPHATICS: Edema- Ulcer- LABORATORY: Hemoglobin 7.3, potassium 4.5. ASSESSMENT AND RECOMMENDATIONS: 1. Stage 6 chronic kidney disease, on hemodialysis. 2. Hypertension, stable. 3. Anemia. Continue Epogen. No urgent need for blood transfusion. 4. Hyperphosphatemia, stable. MTDD
[2017-08-08] MEDS: Carvedilol 6.25 MG TAB PO SCH (17:00)
[2017-08-08] MEDS: Pravastatin Sodium 20 MG TAB PO SCH (22:23)
[2017-08-09 04:42] LABS: #Eosinphils 0.5 thou/uL (0.0-0.7); #Lymphocytes 0.9 thou/uL (1.20-3.40); #Monocytes 0.4 thou/uL (0.11-0.59); #Neutrophils 2.3 thou/uL (1.40-6.50); %Basophils 0.9 % (0.0-1.0); %Eosinophils 13.1 % (0.0-10.0); %Lymphocytes 21.2 % (21.0-51.0); %Monocytes 8.4 % (0.0-10.0); Hematocrit 22.2 % (42.0-52.0); Mean Platelet Volume 8.3 fL (7.4-10.4); Red Blood Cell (RBC) Count 2.57 mill/uL (4.70-6.10); White Blood Cell (WBC) Count 4.2 thou/uL (4.8-10.8)
[2017-08-09 05:23] LABS: Anion Gap 9 mmol/L (10-20); BUN (Urea Nitrogen) 15 mg/dL (8.4-25.7); Calc. Creatinine Clearance 24 mL/min (70-130); Calcium 8.2 mg/dL (7.8-10.44); Carbon Dioxide 31 mmol/L (22-29); Chloride 101 mmol/L (98-107); Estimated GFR-MDRD 19; Magnesium 2.1 mg/dL (1.6-2.6); Phosphorus 2.9 mg/dL (2.3-4.7)
[2017-08-09] MEDS: Ferrous Sulfate 325 MG TAB PO SCH (08:52)
[2017-08-09] MEDS: Carvedilol 6.25 MG TAB PO SCH (08:52)
[2017-08-09] MEDS: NIFEdipine XL 30 MG TAB PO SCH (08:53)
[2017-08-09] MEDS: Calcium Carbonate 500 MG ChewTAB PO SCH (08:53)
[2017-08-09] MEDS: hydrALAZINE 25 MG TAB PO SCH ×2 (08:54→14:38)
[2017-08-09] MEDS: Lisinopril 5 MG TAB PO SCH (08:55)
[2017-08-09] MEDS: Calcium Acetate 667 MG CAP PO SCH ×2 (08:55→14:37)
[2017-08-09] MEDS: Heparin 5,000 UNITS/ML VIAL SC SCH (08:56)
[2017-08-09] MEDS: Calcitriol 0.25 MCG CAP PO SCH (08:57)
[2017-08-09 10:01] VITALS: TEMP 99.2
--- NOTE | 2017-08-09 10:47 | DIS ---
PRIMARY CARE PHYSICIAN: Di Perez M.D. DATE OF ADMISSION: 08/03/2017 DATE OF DISCHARGE: 08/09/2017 DISCHARGE DISPOSITION: Home. PRIMARY DISCHARGE DIAGNOSES: 1. Acute on chronic combined systolic and diastolic congestive heart failure exacerbation. 2. Acute on chronic kidney failure, baseline chronic kidney disease stage 4, new onset end-stage artur al disease, started on hemodialysis, acute respiratory failure with hypoxemia. 3. Metabolic acidosis. SECONDARY DISCHARGE DIAGNOSES: Chronic kidney disease stage 4, anemia of renal disease, diabetes ty pe 2, hypertension, hypouricemia, vitamin D deficiency, secondary hyperparathyroidism of renal origin , noncompliance with medical therapy, chronic systolic and diastolic heart failure. PRIMARY PROCEDURE/OPERATION: During this admission, the patient had acute temporary dialysis cathete r placement in groin which was subsequently removed. The patient also got tunneled hemodialysis cath eter on the right side of chest. Patient also had AV fistula done during this admission. RADIOLOGICAL INVESTIGATION: Chest x-ray on admission showed pulmonary edema. Renal ultrasound on ad mission showed no hydronephrosis. The patient had chest x-ray after the surgical procedure. SIGNIFICANT LABS: WBC 4.2, hemoglobin 7.5, platelets 154. Sodium 137, potassium 4.3, BUN 15, creati nine 3.37, calcium 8.2, phosphorus 2.9, magnesium 2.1. Urinalysis unremarkable. Hepatitis B surface antigen negative. DISCHARGE MEDICATIONS: Allopurinol 100 mg p.o. daily, calcitriol 0.25 mcg p.o. daily, PhosLo 667 mg 2 capsules p.o. t.i.d., Tums 1000 mg p.o. b.i.d., Coreg 12.5 mg p.o. b.i.d., ferrous sulfate 325 mg p .o. daily, hydralazine 25 mg p.o. q.i.d., Imdur 30 mg p.o. daily, lisinopril 5 mg p.o. daily, Procard ia-XL 30 mg p.o. daily, pravastatin 20 mg p.o. at bedtime, aspirin 81 mg p.o. daily. CONTRAINDICATIONS: None. CODE STATUS: FULL CODE. INPATIENT CONSULTANTS: Dr. Perez was following for dialysis. Dr. Donohue was consulted because ortega ent was intubated initially. Dr. Oakes was consulted for dialysis access. TEST RESULTS PENDING ON DISCHARGE: None. ALLERGIES: No known drug allergies. DISCHARGE PLAN: Post hospital, the patient will follow up with primary care physician in 1 week. Th e patient is advised to get outpatient dialysis as needed basis. The patient will follow up with Dr. Perez as instructed. HOSPITAL COURSE: A 61-year-old male with the above mentioned medical problem. This patient was admitted by Dr. Dr. Bentley Diaz. Initially, this patient was admitted to ICU because of acute hy poxic respiratory failure. He was fluid overloaded. He had pulmonary edema. He also had acute on c hronic systolic and diastolic heart failure. He was tachycardic, tachypneic, and hypoxic. He requir ed intubation and subsequently he was admitted in ICU. Pulmonary group was managing ventilator. The patient required emergent dialysis. After emergent lázaro lysis, the patient's pulmonary edema and fluid overload completely improved and the patient was able to be extubated. This patient's renal function did not improve and his renal function gotten worse to the point that h briana reached ESRD and he was requiring dialysis. Dr. Oakes did temporary dialysis access and then ortega ent had tunneled hemodialysis catheter placement as well as AV fistula during this admission. He was getting subsequently maintenance hemodialysis as per Dr. Perez. He is tolerating his dialysis sid y well. During this admission, we adjusted his blood pressure medication as above. We provided patient educa tion about compliance with the treatment and dialysis. The patient is seen and examined at bedside today. We discussed with him about plan of care and medi cations with the help of house fellow. All review of systems reviewed with him and negative. PHYSICAL EXAMINATION: VITAL SIGNS: Currently, temperature 99.2, pulse 86, respiratory rate 18, blood pressure 148/72. Henri ght 156 pounds. GENERAL: The patient is currently alert, awake, no obvious acute distress. HEAD: Normocephalic, atraumatic. LUNGS: Clear without any rhonchi or rales. CARDIAC: S1, S2 regular without any murmur. ABDOMEN: Soft and benign without any tenderness. EXTREMITIES: No edema. NEUROLOGIC: Nonfocal examination. All new medication prescription sent to the pharmacy on the day of discharge. I spoke with case desi estrada and they reported that because of undocumented status and no benefit for outpatient dialysis, the patient will not be able to go to dialysis chair, but he needs to come to emergency room for dialysi s as needed basis. The patient will follow up with Dr. Perez and Dr. Oakes as instructed. Total time spent on discharge day 31 minutes.
--- NOTE | 2017-08-09 12:06 | PRG ---
DATE OF SERVICE: 08/09/2017 NEPHROLOGY PROGRESS NOTE SUBJECTIVE: This is a 61-year-old gentleman being seen for end-stage renal disease. The patient den ies any nausea, vomiting or chest pain. PHYSICAL EXAMINATION: GENERAL: Patient is awake, alert. VITAL SIGNS: Afebrile, pulse 86, breathing at 16, blood pressure 148/72. OBJECTIVE: See above. HEAD/NECK: Normocephalic. Atraumatic. EYES: EOMI. No deformity. EARS: Clear. No ulcers. NOSE: Intact. No lesions. MOUTH: Clear. No discharge. THROAT: Clear. No exudate. LUNGS: Clear. No crackles. CARDIAC: S1, S2. No rub. ABDOMEN: Benign. BS+. GENITALIA/RECTUM: Teague absent. BACK/EXTREMITIES: Edema 0+ Ulcer- NEUROLOGICAL: Alert and motor intact. SKIN: Rash- Bruise- LYMPHATICS: Edema- Ulcer- LABORATORY DATA: Show hemoglobin 7.5, potassium 4.5. ASSESSMENT AND RECOMMENDATIONS: 1. Stage 6 chronic kidney disease. Continue hemodialysis. 2. Anemia. Continue Epogen. 3. Hypertension, stable. 4. Medications based on glomerular filtration rate are appropriate. Discharge planning is in progre ss.
[2017-08-09 14:39] VITALS: BP 132/72
--- NOTE | 2017-08-10 19:44 | PRG ---
DATE OF SERVICE: 08/10/2017 SUBJECTIVE: This is a 61-year-old gentleman being seen for end-stage renal disease. Patient denies any nausea, vomiting, or chest pain. PHYSICAL EXAMINATION: GENERAL: Patient is awake and alert. VITAL SIGNS: Afebrile, pulse 82, breathing at 16, blood pressure 132/72. GENERAL APPEARANCE AND MENTAL STATUS: Fair. HEAD/NECK: Normocephalic. Atraumatic. EYES: EOMI. No deformity. EARS: Clear. No ulcers. NOSE: Intact. No lesions. MOUTH: Clear. No discharge. THROAT: Clear. No exudate. LUNGS: Clear. No crackles. CARDIAC: S1, S2. No rub. ABDOMEN: Benign. BS+. GENITALIA/RECTUM: Teague absent. BACK/EXTREMITIES: Edema 0+ Ulcer- NEUROLOGICAL: Alert and motor intact. SKIN: Rash- Bruise. LYMPHATICS: Edema- Ulcer. LABORATORY DATA: Not done today. ASSESSMENT AND PLAN: 1. Stage 6 chronic kidney disease, continue hemodialysis. 2. Hypertension. 3. Anemia, stable. 4. Medications based on GFR are appropriate.
== END 2017-08-09 17:30 | disposition home or self-care (01) | DRG 981 ==
LOC: ERS 18:44 → CCU 20:53 → ONC 08-05 10:11
PROVIDERS: ADMIT Family Medicine; ATTEND Family Medicine
PROC: 5A1D70Z Performance of Urinary Filtration, Intermittent, Less than 6 Hours Per Day (ICD-10-PCS; 2017-08-03)
PROC: 5A1945Z Respiratory Ventilation, 24-96 Consecutive Hours (ICD-10-PCS; 2017-08-03)
PROC: 06HM33Z Insertion of Infusion Device into Right Femoral Vein, Percutaneous Approach (ICD-10-PCS; 2017-08-03)
PROC: 031C0ZF Bypass Left Radial Artery to Lower Arm Vein, Open Approach (ICD-10-PCS; principal; 2017-08-07)
PROC: 02HV33Z Insertion of Infusion Device into Superior Vena Cava, Percutaneous Approach (ICD-10-PCS; 2017-08-07)
PROC: B5181ZA Fluoroscopy of Superior Vena Cava using Low Osmolar Contrast, Guidance (ICD-10-PCS; 2017-08-07)
DX: J96.01 Acute respiratory failure with hypoxia (principal); N18.6 End stage renal disease; I50.43 Acute on chronic combined systolic (congestive) and diastolic (congestive) heart failure; N17.9 Acute kidney failure, unspecified; E87.2 Acidosis; E11.21 Type 2 diabetes mellitus with diabetic nephropathy; I42.9 Cardiomyopathy, unspecified; I13.2 Hypertensive heart and chronic kidney disease with heart failure and with stage 5 chronic kidney disease, or end stage renal disease; N25.81 Secondary hyperparathyroidism of renal origin; E11.22 Type 2 diabetes mellitus with diabetic chronic kidney disease; E78.5 Hyperlipidemia, unspecified; Z91.15 Patient's noncompliance with renal dialysis; D63.1 Anemia in chronic kidney disease; E83.39 Other disorders of phosphorus metabolism; E87.70 Fluid overload, unspecified; E87.5 Hyperkalemia; E55.9 Vitamin D deficiency, unspecified; Z79.82 Long term (current) use of aspirin; E79.0 Hyperuricemia without signs of inflammatory arthritis and tophaceous disease
CPT/HCPCS: 36415; 36416; 36556; 71010; 76770; 80048; 80053; 82805; 83735; 83880; 84100; 85025; 86850; 86900; 86901; 87340; 90935; 93005; 93970; 94002; 94003; 96365; 96366; 96375; 99292; A4216; C1752; C1769; G0257; G0365; G8978-GP-CI; G8979-GP-CI; G8980-GP-CI; G8987-GO-CI; G8988-GO-CI; G8989-GO-CI; J1644; J1815; J1940; J2001; J2060; J2405; J2704; J2720; J2997; J3010; J7611; Q4081; S0028

== ENCOUNTER 2017-09-03 11:49 | Inpatient (IN) | payer BC, OTHER ==
[2017-09-03] MEDS ORDERED: Nitroglycerin 2% Ointment 1 INCH/1 GM Packet ONE (13:00)
[2017-09-03] MEDS ORDERED: Furosemide 20 MG/2 ML VIAL ONE (13:00)
[2017-09-03 13:39] LABS: #Eosinphils 0.4 thou/uL (0.0-0.7); #Lymphocytes 0.8 thou/uL (1.20-3.40); #Monocytes 0.3 thou/uL (0.11-0.59); #Neutrophils 5.4 thou/uL (1.40-6.50); %Basophils 0.1 % (0.0-1.0); %Eosinophils 5.4 % (0.0-10.0); %Lymphocytes 11.5 % (21.0-51.0); %Monocytes 4.4 % (0.0-10.0); %Neutrophils 78.6 % (42.0-75.0); Hemoglobin 9.2 g/dL (14.0-18.0); Mean Corpuscular HGB CONC 33.1 g/dL (32.0-36.0); Mean Corpuscular Hemoglobin 28.7 pg (27.0-31.0); Mean Corpuscular Volume 86.7 fl (80.0-94.0); Mean Platelet Volume 9.5 fL (7.4-10.4); Platelet Count 120 thou/uL (130-400); RBC Distribution Width 13.9 % (11.5-14.5); Red Blood Cell (RBC) Count 3.22 mill/uL (4.70-6.10); White Blood Cell (WBC) Count 6.9 thou/uL (4.8-10.8)
[2017-09-03 13:47] LABS: INR-International Normal Ratio 1.1; Prothrombin Time 14.6 SEC (12.0-14.7)
[2017-09-03 13:52] LABS: ALT (SGPT) 13 U/L (8-55); AST (SGOT) 14 U/L (5-34); Alkaline Phosphatase 66 U/L (40-150); Anion Gap 18 mmol/L (10-20); BUN (Urea Nitrogen) 53 mg/dL (8.4-25.7); Bilirubin, Total 0.6 mg/dL (0.2-1.2); Calc. Creatinine Clearance 0 mL/min (70-130); Calcium 7.7 mg/dL (7.8-10.44); Carbon Dioxide 16 mmol/L (22-29); Chloride 114 mmol/L (98-107); Estimated GFR-MDRD 7; Globulin 3.2 g/dL (2.4-3.5); Glucose 110 mg/dL (70-105); Magnesium 2.7 mg/dL (1.6-2.6); Potassium 6.1 mmol/L (3.5-5.1); Protein, Total 7.2 g/dL (6.0-8.3); Sodium 142 mmol/L (136-145)
[2017-09-03] MEDS ORDERED: hydrALAZINE 20 MG/ML VIAL ONE (14:02)
[2017-09-03 14:27] LABS: Actual Bicarbonate (HCO3a) 14.9 mEq/L (22-26); Base Excess (BEa) -9.8 mEq/L (0 (+/-) 2.5); CO2 Tension 28.5 mmHg (35.0-45.0); Hematocrit-ABG 29.5 % (42.0-52.0); Hemoglobin (Hb) 9.8 g/dL (14.0-18.0); O2 Tension (PaO2) 137.5 mmHg (80.0-100.0); pH, Arterial 7.34 (7.35-7.45)
[2017-09-03 14:32] LABS: Analyzer IN Cardio ER; Puncture Site RBA
[2017-09-03 14:34] LABS: ALV-art Gradient 335.075 (0-20)
[2017-09-03] MEDS ORDERED: Calcium Gluc 4.6 MEQ/10 ML (100 MG/ML) ONE (14:46)
--- NOTE | 2017-09-03 14:52 | RAD ---
PORTABLE CHEST 1 VIEW: DATE: 09/03/17. TIME: 12:53 p.m. HISTORY: Difficulty breathing. FINDINGS: Comparison is made with the exam of 08/21/17. Right-sided dialysis catheter remains in place. The heart size is normal. The lungs are well expand ed. There is mild pulmonary vascular congestion. No pneumothoraces, lobar consolidation, or large e ffusions are seen. POS: [facility]
--- NOTE | 2017-09-03 16:44 | HP ---
PRIMARY CARE PHYSICIAN: [facility]. REASON FOR ADMISSION: Acute on chronic congestive heart failure exacerbation, volume overload, acute hypoxic respiratory failure. HISTORY OF PRESENT ILLNESS: A 61-year-old male who has newly diagnosed ESRD and during prev ious admission on 08/03/2017, patient required dialysis. Dr. Oakes did tunneled hemodialysis tita ter. At that time, patient did not have insurance, patient was not able to get outpatient scheduled dialysis and he was discharged home on 08/09/2017. Since then, the patient did not have any dialysis . Patient started feeling increasing shortness of breath. He was having orthopnea, increasing lower extremity edema, cough on lying down position. Day by day, his condition was getting worse and he w as feeling congested. He was feeling chest tightness. He did not have any nausea, vomiting, diaphor esis, fever, chills, UTI symptoms. He did not have any flu-like symptoms. With these symptoms, he presented to the emergency room. Initially, patient was hypertensive. He wa s in respiratory distress. He required BiPAP. With BiPAP, patient's condition was improving and rou [place] blood tests showed hyperkalemia. Now this patient has insurance, but his insurance in our hospital is out of network and that is why f rom the emergency room physician tried to send him to [facility] or [facility], but patient's condition was unstable. He was still on BiPAP and he was hyperkalemic and he was r equiring emergent dialysis and that is why the decision was made to keep him in our hospital. Currently, the patient denies any chest pain. He is on BiPAP. He is alert. He is afebrile, but hyp ertensive. After nitropatch, his blood pressure slightly improved. In the emergency room, he was al so given Lasix, but he did not make any significant urine. He was given calcium gluconate, hydralazi ne 10 mg IV, and aspirin 324 mg. PAST MEDICAL HISTORY: Chronic systolic and diastolic heart failure, diabetes type 2, now diet contro lled, dyslipidemia, hypertension, ESRD on hemodialysis, history of medication noncompliance, anemia o f renal disease, secondary hyperparathyroidism of renal origin, and gout. PAST SURGICAL HISTORY: Hemodialysis catheter placement by Dr. Oakes. PAST PSYCHIATRIC HISTORY: Reviewed and negative. FAMILY HISTORY: No strong family history of premature coronary artery disease, stroke or cancer. REVIEW OF SYSTEMS: The following complete review of systems was negative, unless otherwise mentioned in the HPI or below: Constitutional: Weight loss or gain, ability to conduct usual activities. Sk in: Rash, itching. Eyes: Double vision, pain. ENT/Mouth: Nose bleeding, neck stiffness, pain, te nderness. Cardiovascular: Palpitations, dyspnea on exertion, orthopnea. Respiratory: Shortness of breath, wheezing, cough, hemoptysis, fever or night sweats. Gastrointestinal: Poor appetite, abdom inal pain, heartburn, nausea, vomiting, constipation, or diarrhea. Genitourinary: Urgency, frequenc y, dysuria, nocturia. Musculoskeletal: Pain, swelling. Neurologic/Psychiatric: Anxiety, depressio n. Allergy/Immunologic: Skin rash, bleeding tendency. Please see my HPI for pertinent positives and negatives. All other review of systems reviewed and ne gative except as mentioned in the HPI. ALLERGIES: No known drug allergies. SOCIAL HISTORY: Patient is a former smoker. He quit smoking a few years ago. He does not have any alcohol or other illicit drug abuse history. 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 CURRENT HOME MEDICATIONS: The patient did not bring his home medication, but he was discharged on following medications: Allopurinol 100 mg p.o. daily, calcitriol 0.25 mcg p.o. daily, PhosLo 667 t wo capsules p.o. t.i.d., calcium carbonate 1000 mg p.o. b.i.d., Coreg 12.5 mg p.o. b.i.d., ferrous byrd lfate 325 mg p.o. daily, hydralazine 25 mg q.i.d., Imdur 30 mg p.o. daily, lisinopril 5 mg p.o. daily , Procardia-XL 30 mg p.o. daily, pravastatin 20 mg p.o. at bedtime, Patient has received calcium glu conate, hydralazine 10 mg IV, aspirin 324 mg, nitro patch, Lasix 20 mg. PHYSICAL EXAMINATION: VITAL SIGNS: Currently, blood pressure 185/86, pulse 85, respiratory rate 22, temperature 98.2, satu ration 94% on BiPAP, weight 74.8 kilograms. GENERAL: Patient is currently alert, awake, on BiPAP, hypertensive, no acute distress. HEENT: Normocephalic, atraumatic. Eyes: Pupils round, reactive to light. Extraocular muscle intac t. ENT: Oropharynx within normal limits. Moist mucous membranes. No oral lesions. No pharyngeal eryt nilton, no exudates. NECK: Supple, no JVD, no thyromegaly, no carotid bruit, no jugular venous distention. LUNGS: Bibasilar rales noted. Air entry reduced. A few end expiratory wheezing heard. CARDIAC: S1, S2 regular, tachycardia, no murmur, no gallop, no rub. ABDOMEN: Soft, bowel sounds present, nontender, nondistended. No organomegaly, no mass, no suprapub ic tenderness. BACK: Unremarkable, no CVA tenderness. EXTREMITIES: Upper extremity passive movement of all joints are normal. Lower extremities: Bilater al lower extremity edema noted. No calf tenderness. Good distal pulsation. SKIN: No skin rash. HEMATOLOGICAL SYSTEM: No lymphadenopathy. PSYCHIATRIC: Normal affect. SIGNIFICANT LABORATORY DATA: EKG showing normal sinus rhythm, nonspecific ST-T changes in anterolate ral lead. Chest x-ray based on my review, pulmonary vascular congestion, cardiomegaly. CBC: WBC 6. 9, hemoglobin 9.2, platelet 120. INR 1.1. ABG: pH 7.34, CO2 of 28.5, bicarbonate 14.9, O2 of 137.5 , saturation 98.8 on BiPAP. BMP: Sodium 142, potassium 6.1, chloride 114, carbon dioxide 16, anion gap 18, BUN 53, creatinine 8.07, glucose 110, calcium 7.7, and magnesium 2.7. LFT: AST 14, ALT 13, alkaline phosphatase 66, albumin 4.0, CK-MB 3.0, troponin I 0.010. BNP 2871. Influenza A and B nega tive. ASSESSMENT AND PLAN: 1. Acute respiratory failure with hypoxia, required BiPAP, likely due to underlying acute on chronic systolic and diastolic heart failure secondary to volume overload because of inability to get dialys is. At this point because the patient is on BiPAP, we will keep him in IMCU overnight. The patient will need emergent hemodialysis. Dr. Perez notified and we will arrange dialysis later on today. 2. Acute on chronic systolic and diastolic congestive heart failure exacerbation, likely due to flui d overload from end-stage renal disease. The patient is planned for hemodialysis later on today for volume removal. 3. Fluid overload status due to inability to get hemodialysis because of not having any insurance an d patient will have hemodialysis as per Nephrology and now patient has insurance, then will consult c ase complaint manager to arrange outpatient hemodialysis schedule. 4. Hyperkalemia. The patient is being treated medically in the emergency room. The patient will ne ed emergent hemodialysis. Because of hyperkalemia, we will avoid lisinopril. We will repeat BMP filipe orrow. 5. End-stage renal disease, on hemodialysis and now patient will need outpatient hemodialysis arrang fadi. body care manager will be consulted. 6. Chronic systolic and diastolic heart failure with acute exacerbation. Currently, patient will co ntinue hydralazine 25 mg q.i.d., nitropatch q.8 hourly, and Coreg 12.5 mg p.o. b.i.d. 7. Secondary hyperparathyroidism of renal origin. We will continue PhosLo 667 mg 2 capsules t.i.d. along with Tums b.i.d. 8. Anemia of renal disease. Continue ferrous sulfate 325 mg p.o. daily and Procrit with the dialysi s. 9. Dyslipidemia. Continue pravastatin 20 mg p.o. at bedtime. 10. Hyperuricemia. Continue allopurinol 100 mg p.o. daily. 11. Hypertension. We will continue Coreg, hydralazine, nitropatch and Procardia-XL as per home dosa ge. 12. Deep venous thrombosis prophylaxis. We will avoid heparin because of low platelet count. We wi ll repeat CBC and BMP tomorrow. 13. Gastrointestinal prophylaxis, Pepcid 20 mg p.o. daily. CODE STATUS: The patient is FULL CODE. Patient does not have any surrogate decision maker. Disposition plan based on clinical course. We are expecting patient's stay in hospital more than 2 m idnights. Plan of 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 with the family member.
[2017-09-03 16:55] LABS: Troponin I 0.013 ng/mL (< 0.028)
[2017-09-03 19:02] LABS: Troponin I 0.017 ng/mL (< 0.028)
[2017-09-03 19:17] LABS: HBSAg Index 0.49 S/CO (0-0.99); Hep B Surf Ag Non-Reactive S/CO (NonReactive)
[2017-09-03] MEDS ORDERED: Ondansetron ODT 4 MG TAB PO PRN (21:49)
[2017-09-03] MEDS ORDERED: Acetaminophen 325 MG TAB PO PRN (21:49)
[2017-09-03] MEDS ORDERED: Diabetic Tussin 200 MG/10 ML UDCUP PO PRN (21:49)
[2017-09-03] MEDS ORDERED: Nitroglycerin 0.4 MG TAB (25 Tab Bottle) SL PRN (21:49)
[2017-09-03] MEDS ORDERED: Loratadine 10 MG TAB PO PRN (21:49)
[2017-09-03] MEDS ORDERED: Sodium Chloride 0.65% Nasal 44 ML BOT EA NARE PRN (21:49)
[2017-09-03] MEDS ORDERED: Eucerin (Mineral Oil/Petrolatum,White) 30 gm Jar TOP PRN (21:49)
[2017-09-03] MEDS ORDERED: Zolpidem Tartrate 5 MG TAB PO PRN (21:49)
[2017-09-03] MEDS ORDERED: Ondansetron HCl/PF 4 MG/2 ML Vial IVP PRN (21:49)
[2017-09-03] MEDS ORDERED: Artificial Tears 18 DROP/0.9 ML EA EYE PRN (21:49)
[2017-09-03] MEDS ORDERED: Milk Of Magnesia 30 ML UDCUP PO PRN (21:49)
[2017-09-03] MEDS ORDERED: hydrALAZINE 20 MG/ML VIAL SLOW IVP PRN (21:49)
[2017-09-03] MEDS ORDERED: Loperamide HCl 2 MG CAP PO PRN (21:49)
[2017-09-03] MEDS ORDERED: HYDROcodone/Acetaminophen 5/325 mg Tablet PO PRN (21:49)
[2017-09-03] MEDS ORDERED: Chloraseptic Spray 180 ml Bottle PO PRN (21:49)
[2017-09-03] MEDS ORDERED: Mag-Al 1200 mg/1200 mg/30 ML UDCUP PO PRN (21:49)
[2017-09-03] MEDS ORDERED: Senokot 8.6 MG TAB PO PRN (21:49)
[2017-09-03] MEDS ORDERED: Carvedilol 6.25 MG TAB PO SCH (22:15)
[2017-09-03] MEDS ORDERED: hydrALAZINE 25 MG TAB PO SCH (22:15)
[2017-09-03] MEDS ORDERED: Calcium Carbonate 500 MG ChewTAB PO SCH (22:15)
[2017-09-03] MEDS ORDERED: Calcium Acetate 667 MG CAP PO SCH (22:15)
[2017-09-03] MEDS ORDERED: Pravastatin Sodium 20 MG TAB PO SCH (22:15)
[2017-09-03] MEDS ORDERED: Heparin 5,000 UNITS/ML VIAL SC SCH (22:15)
[2017-09-03] MEDS ORDERED: Tuberculin PPD 0.1 ML VIAL I-DERMAL SCH (22:30)
[2017-09-03] MEDS: Nitroglycerin 2% Ointment 1 INCH/1 GM Packet TOP SCH (22:34)
--- NOTE | 2017-09-03 22:47 | CON ---
DATE OF CONSULTATION: 09/03/2017 CONSULTING PHYSICIAN: Cameron Greenberg MD REASON FOR CONSULTATION: End-stage renal disease evaluation and care. REASON FOR ADMISSION: Shortness of breath. HISTORY OF PRESENT ILLNESS: A 61-year-old male with a history of congestive heart failure, chronic kidney disease, type 2 diabetes, hypertension, anemia came to the hospital with shortness of breath. The patient was having CKD and need regular dialysis, but he did not have insurance, but sta rting today will have insurance. The patient was found to have shortness of breath, was taken to the hospital and currently BiP'ed. He was seen in the ER. He was also hyperkalemic. The patient nee ds emergent dialysis and dialysis nurse notified. PAST MEDICAL HISTORY: Reports CHF, hypertension, end-stage renal disease, secondary hyperparathyroid ism. PAST SURGICAL HISTORY: Hemodialysis catheter placement and fistula placement. HOME MEDICATIONS: Include allopurinol, calcitriol, PhosLo, calcium carbonate, Coreg, ferrous sulfate , hydralazine, lisinopril, Procardia. ALLERGIES: No known drug allergies. SOCIAL HISTORY: He is a former smoker. No alcohol or drug abuse. FAMILY HISTORY: No history of kidney disease. REVIEW OF SYSTEMS: The following complete review of systems was negative, unless otherwise mentioned in the HPI or below: Constitutional: Weight loss or gain, ability to conduct usual activities. Sk in: Rash, itching. Eyes: Double vision, pain. ENT/Mouth: Nose bleeding, neck stiffness, pain, te nderness. Cardiovascular: Palpitations, dyspnea on exertion, orthopnea. Respiratory: Shortness of breath, wheezing, cough, hemoptysis, fever or night sweats. Gastrointestinal: Poor appetite, abdom inal pain, heartburn, nausea, vomiting, constipation, or diarrhea. Genitourinary: Urgency, frequenc y, dysuria, nocturia. Musculoskeletal: Pain, swelling. Neurologic/Psychiatric: Anxiety, depressio n. Allergy/Immunologic: Skin rash, bleeding tendency. PHYSICAL EXAMINATION: GENERAL: This is a well-built male in no apparent distress. VITAL SIGNS: Temperature 98.2, pulse 85, respiratory rate 18, blood pressure 185/86. HEENT: Atraumatic, normocephalic. Oral mucosa is moist. NECK: Supple. No masses. CARDIOVASCULAR: S1, S2. Rate and rhythm regular. RESPIRATORY: Crackles present. ABDOMEN: Soft. MUSCULOSKELETAL: 1+ edema. DERMATOLOGIC: No skin rash. NEUROLOGIC: Alert, awake. PSYCHIATRIC: Mood and affect normal. LABORATORY AND X-RAY FINDINGS: Hemoglobin is 9.2, potassium is 6.1, BUN is 53, creatinine is . ASSESSMENT AND PLAN: 1. End-stage renal disease. Plan is to have emergent dialysis. 2. Hyperkalemia. Limit potassium. He will have dialysis. 3. Acidosis secondary to renal failure. 4. Elevated BNP with fluid overload. 5. Anemia. Continue Epogen. Plan is to continue on dialysis as tolerated. Will have outpatient placement with case management co anita. Thank you for the consultation.
[2017-09-03 23:36] LABS: Hep B Core Total Ab Non-Reactive (NonReactive); Hep B Core Total Index 0.04 S/CO (0-0.79); Hep B Surf Ag Non-Reactive S/CO (NonReactive)
[2017-09-03 23:37] LABS: HBSAB Concentration 0.44 mIU/mL; Hep B Surf AB Non-Reactive (NonReactive); Hep C IgG Ab Non-Reactive (NonReactive); Hep C Index 0.11 S/CO (0-0.79)
[2017-09-04 04:54] LABS: Albumin 3.6 g/dL (3.5-5.0); Anion Gap 13 mmol/L (10-20); BUN (Urea Nitrogen) 25 mg/dL (8.4-25.7); BUN/Creatinine Ratio 5.52; Calc. Creatinine Clearance 17 mL/min (70-130); Calcium 8.5 mg/dL (7.8-10.44); Carbon Dioxide 27 mmol/L (22-29); Chloride 103 mmol/L (98-107); Estimated GFR-MDRD 13; Glucose 86 mg/dL (70-105); Phosphorus 5.6 mg/dL (2.3-4.7); Potassium 4.3 mmol/L (3.5-5.1); Sodium 139 mmol/L (136-145)
[2017-09-04 04:55] LABS: #Eosinphils 0.1 thou/uL (0.0-0.7); #Lymphocytes 0.9 thou/uL (1.20-3.40); #Monocytes 0.4 thou/uL (0.11-0.59); #Neutrophils 3.7 thou/uL (1.40-6.50); %Basophils 0.3 % (0.0-1.0); %Eosinophils 2.9 % (0.0-10.0); %Lymphocytes 17.4 % (21.0-51.0); %Monocytes 7.4 % (0.0-10.0); Hemoglobin 8.9 g/dL (14.0-18.0); Mean Corpuscular HGB CONC 34.2 g/dL (32.0-36.0); Mean Corpuscular Volume 84.7 fl (80.0-94.0); Mean Platelet Volume 9.6 fL (7.4-10.4); Platelet Count 113 thou/uL (130-400); RBC Distribution Width 13.6 % (11.5-14.5); Red Blood Cell (RBC) Count 3.06 mill/uL (4.70-6.10); White Blood Cell (WBC) Count 5.1 thou/uL (4.8-10.8)
[2017-09-04] MEDS: Nitroglycerin 2% Ointment 1 INCH/1 GM Packet TOP SCH ×3 (05:44→21:10)
[2017-09-04] MEDS: Calcitriol 0.25 MCG CAP PO SCH (08:41)
[2017-09-04] MEDS: Calcium Carbonate 500 MG ChewTAB PO SCH ×2 (08:41→20:17)
[2017-09-04] MEDS: Allopurinol 100 MG TAB PO SCH (08:41)
[2017-09-04] MEDS: Ferrous Sulfate 325 MG TAB PO SCH (08:42)
[2017-09-04] MEDS: NIFEdipine XL 30 MG TAB PO SCH (08:42)
[2017-09-04] MEDS: Calcium Acetate 667 MG CAP PO SCH ×3 (08:43→16:26)
[2017-09-04] MEDS: Carvedilol 6.25 MG TAB PO SCH ×2 (08:43→16:26)
[2017-09-04] MEDS: Famotidine 20 MG TAB PO SCH (08:43)
[2017-09-04] MEDS: hydrALAZINE 25 MG TAB PO SCH ×4 (08:43→20:17)
[2017-09-04] MEDS: Heparin 5,000 UNITS/ML VIAL SC SCH ×2 (08:44→20:30)
--- NOTE | 2017-09-04 10:46 | PDOC.PN ---
- Subjective Encounter Start Date: 09/04/17 Encounter Start Time: 10:00 -: old records requested/rev Patient seen and examined. No new complaints. No overnight events - Objective Resuscitation Status: Resuscitation Status FULL:Full Resuscitation MAR Reviewed: Yes Vital Signs & Weight: Vital Signs (12 hours) Temp Pulse Resp BP Pulse Ox 09/04/17 07:39 99.2 F 73 18 144/64 H 100 09/04/17 07:36 98.6 F 73 18 100 09/04/17 04:00 98.6 F 73 18 141/66 H 99 09/04/17 00:00 99.6 F 86 16 150/77 H 100 Weight Weight 155 lb 1.6 oz I&O: 09/03/17 09/04/17 09/05/17 06:59 06:59 06:59 Intake Total 100 240 Output Total 200 Balance -100 240 Result Diagrams: 09/04/17 04:04 09/04/17 04:04 EKG Reviewed by me: Yes (nsr) Phys Exam - Physical Examination Constitutional: NAD HEENT: PERRLA, moist MMs, sclera anicteric Neck: no JVD, supple Respiratory: no wheezing, no rales, no rhonchi Cardiovascular: RRR, no significant murmur, no rub Gastrointestinal: soft, non-tender, no distention, positive bowel sounds Musculoskeletal: pulses present, edema present Neurological: non-focal, normal sensation Lymphatic: no nodes Psychiatric: normal affect, A&O x 3 Skin: no rash, normal turgor Dx/Plan (1) Volume overload Code(s): E87.70 - FLUID OVERLOAD, UNSPECIFIED Status: Acute Qualifiers: Hypervolemia type: unspecified Qualified Code(s): E87.70 - Fluid overload, unspecified (2) Acute on chronic combined systolic and diastolic CHF (congestive heart failure) Code(s): I50.43 - ACUTE ON CHRONIC COMBINED SYSTOLIC AND DIASTOLIC HRT FAIL Status: Acute (3) Acute respiratory failure with hypoxemia Code(s): J96.01 - ACUTE RESPIRATORY FAILURE WITH HYPOXIA Status: Acute (4) Anemia of renal disease Code(s): D63.1 - ANEMIA IN CHRONIC KIDNEY DISEASE Status: Chronic (5) DM type 2 (diabetes mellitus, type 2) Status: Chronic Qualifiers: (6) ESRD (end stage renal disease) on dialysis Code(s): N18.6 - END STAGE RENAL DISEASE; Z99.2 - DEPENDENCE ON RENAL DIALYSIS Status: Chronic (7) HTN (hypertension) Code(s): I10 - ESSENTIAL (PRIMARY) HYPERTENSION Status: Chronic (8) Hyperuricemia Code(s): E79.0 - HYPERURICEMIA W/O SIGNS OF INFLAM ARTHRIT AND TOPHACEOUS DIS Status: Chronic (9) Noncompliance with medication regimen Code(s): Z91.14 - PATIENT'S OTHER NONCOMPLIANCE WITH MEDICATION REGIMEN Status : Chronic (10) Secondary hyperparathyroidism of renal origin Code(s): N25.81 - SECONDARY HYPERPARATHYROIDISM OF RENAL ORIGIN Status: Chronic (11) Vitamin D deficiency Code(s): E55.9 - VITAMIN D DEFICIENCY, UNSPECIFIED Status: Chronic (12) Hyperkalemia Code(s): E87.5 - HYPERKALEMIA Status: Resolved - 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 Review of Systems - Review of Systems ENT: negative: Ear Pain, Ear Discharge, Nose Pain, Nose Discharge, Nose Congestion, Mouth Pain, Mouth Swelling, Throat Pain, Throat Swelling, Other Respiratory: negative: Cough, Dry, Shortness of Breath, Hemoptysis, SOB with Excertion, Pleuritic Pain, Sputum, Wheezing Cardiovascular: negative: chest pain, palpitations, orthopnea, paroxysmal nocturnal dyspnea, edema, light headedness, other Gastrointestinal: negative: Nausea, Vomiting, Abdominal Pain, Diarrhea, Constipation, Melena, Hematochezia, Other Genitourinary: negative: Dysuria, Frequency, Incontinence, Hematuria, Retention , Other Musculoskeletal: negative: Neck Pain, Shoulder Pain, Arm Pain, Back Pain, Hand Pain, Leg Pain, Foot Pain, Other Skin: negative: Rash, Lesions, Reji, Bruising, Other - Medications/Allergies Allergies/Adverse Reactions: Allergies Allergy/AdvReac Type Severity Reaction Status Date / Time No Known Drug Allergies Allergy Verified 08/03/17 22:29 Medications: Current Medications Acetaminophen (Tylenol) 650 mg PO Q4H PRN PRN Reason: Headache/Fever or Pain Hydrocodone Bitart/Acetaminophen ([place] 5/325) 1 tab PO Q4H PRN PRN Reason: Moderate Pain (4-6) Al Hydroxide/Mg Hydroxide (Maalox) 30 ml PO Q6H PRN PRN Reason: Heartburn or Indigestion Allopurinol (Zyloprim) 100 mg PO DAILY [facility] Last Admin: 09/04/17 08:41 Dose: 100 mg Artificial Tears (Tears Naturale) 0 drop EA EYE PRN PRN PRN Reason: Dry Eyes Aspirin (Aspirin Chewable) 81 mg PO DAILY [facility] Last Admin: 09/04/17 08:43 Dose: 81 mg Calcitriol (Rocaltrol) 0.25 mcg PO DAILY [facility] Last Admin: 09/04/17 08:41 Dose: 0.25 mcg Calcium Acetate (Phoslo) [facility] Last Admin: 09/04/17 08:43 Dose: 1,334 mg Calcium Carbonate (Tums) 1,000 mg PO BID [facility] Last Admin: 09/04/17 08:41 Dose: 1,000 mg Carvedilol (Coreg) 12.[facility] Last Admin: 09/04/17 08:43 Dose: 12.5 mg Famotidine (Pepcid) 20 mg PO DAILY [facility] Last Admin: 09/04/17 08:43 Dose: 20 mg Ferrous Sulfate (Feosol) [facility] Last Admin: 09/04/17 08:42 Dose: 325 mg Guaifenesin (Robitussin Sf) 200 mg PO Q4H PRN PRN Reason: Cough Heparin Sodium (Porcine) (Heparin) 5,000 units SC BID [facility] Last Admin: 09/04/17 08:44 Dose: 5,000 units Hydralazine HCl (Apresoline) 10 mg SLOW IVP Q4H PRN PRN Reason: Systolic BP > 180 Hydralazine HCl (Apresoline) 25 mg PO QID [facility] Last Admin: 09/04/17 08:43 Dose: 25 mg Loperamide HCl (Imodium) 2 mg PO PRN PRN PRN Reason: Diarrhea/Loose Stools Loratadine (Claritin) 10 mg PO DAILYPRN PRN PRN Reason: Sinus Symptoms Magnesium Hydroxide (Milk Of Magnesium) 30 ml PO DAILYPRN PRN PRN Reason: Constipation Mineral Oil/White Petrolatum (Eucerin Cream) 0 gm TOP BIDPRN PRN PRN Reason: Dry Skin Nifedipine (Procardia Xl) 30 mg PO DAILY [facility] Last Admin: 09/04/17 08:42 Dose: 30 mg Nitroglycerin (Nitrostat) 0.4 mg SL Q5MIN PRN PRN Reason: Chest Pain Nitroglycerin (Nitro-Bid 2% Ointment) 0.5 inch TOP Q8HR [facility] Last Admin: 09/04/17 05:44 Dose: 0.5 inch Read Ppd Test Site 0 each PO 0900 [facility] Stop: 09/05/17 09:01 Ondansetron HCl (Zofran Odt) 4 mg PO Q6H PRN PRN Reason: Nausea/Vomiting Ondansetron HCl (Zofran) 4 mg IVP Q6H PRN PRN Reason: Nausea/Vomiting Phenol (Chloraseptic [place] 180 Ml Bot) 0 ml PO PRN PRN PRN Reason: Sore Throat Pravastatin Sodium (Pravachol) 20 mg PO HS [facility] Senna (Senokot) 2 tab PO HSPRN PRN PRN Reason: Constipation Sodium Chloride ([place] Nasal [place] 0.65%) 0 ml EA NARE QIDPRN PRN PRN Reason: Nasal Congestion Sodium Chloride (Flush - Normal Saline) 10 ml IVF PRN PRN PRN Reason: Saline Flush Zolpidem Tartrate (Ambien) 5 mg PO HSPRN PRN PRN Reason: Insomnia
--- NOTE | 2017-09-04 18:20 | PRG ---
DATE OF SERVICE: 09/04/2017 SUBJECTIVE: Patient was seen and examined at bedside and overnight events noted. Patient denies any shortness of breath or chest pain or palpitation. No history of nausea or vomiting or diarrhea or f ever or chills or cramps. OBJECTIVE: GENERAL: This is a well-built male in no apparent distress. VITAL SIGNS: Temperature 98.6, pulse 60, respiratory rate 18, blood pressure 166/70. HEENT: Atraumatic, normocephalic. Oral mucosa is moist. NECK: Supple. CARDIOVASCULAR: S1, S2 heard. Rate and rhythm regular. RESPIRATORY: Clear to auscultation. GASTROINTESTINAL: Abdomen is soft. MUSCULOSKELETAL: No tenderness. No edema. DERMATOLOGIC: No skin rash. NEUROLOGIC: Alert and awake and oriented x3. No focal neurologic deficits. Moving all the extremiti es. PSYCHIATRIC: Mood and affect normal. LABORATORY DATA: Potassium is 4.3, BUN is 25, creatinine is 4.5. ASSESSMENT AND PLAN: 1. End-stage renal disease. Had emergent dialysis today, tolerated well. We will continue on dialy sis. Follow with case management for outpatient placement now. Patient does have insurance. 2. Hyperkalemia. Limit potassium in the diet. 3. Acidosis, elevated BNP. 4. Anemia. 5. Continue Epogen. 6. Plan is to continue on dialysis as tolerated. We will follow.
[2017-09-04] MEDS: Pravastatin Sodium 20 MG TAB PO SCH (20:29)
[2017-09-05] MEDS ORDERED: READ PPD TEST SITE PO SCH (09:00)
[2017-09-05] MEDS: Nitroglycerin 2% Ointment 1 INCH/1 GM Packet TOP SCH ×3 (09:09→21:25)
[2017-09-05] MEDS: Calcitriol 0.25 MCG CAP PO SCH (09:10)
[2017-09-05] MEDS: Calcium Carbonate 500 MG ChewTAB PO SCH ×2 (09:11→21:25)
[2017-09-05] MEDS: hydrALAZINE 25 MG TAB PO SCH ×4 (09:13→21:24)
[2017-09-05] MEDS: Carvedilol 6.25 MG TAB PO SCH ×2 (09:13→18:40)
[2017-09-05] MEDS: Ferrous Sulfate 325 MG TAB PO SCH (09:13)
[2017-09-05] MEDS: NIFEdipine XL 30 MG TAB PO SCH (09:14)
[2017-09-05] MEDS: Calcium Acetate 667 MG CAP PO SCH ×3 (09:15→18:41)
[2017-09-05] MEDS: Allopurinol 100 MG TAB PO SCH (09:16)
[2017-09-05] MEDS: Heparin 5,000 UNITS/ML VIAL SC SCH ×2 (09:17→21:25)
[2017-09-05] MEDS: Famotidine 20 MG TAB PO SCH (09:17)
--- NOTE | 2017-09-05 10:36 | PDOC.PN ---
- Subjective Encounter Start Date: 09/05/17 Encounter Start Time: 09:45 Patient seen and examined. No new complaints. No overnight events - Objective Resuscitation Status: Resuscitation Status FULL:Full Resuscitation MAR Reviewed: Yes Vital Signs & Weight: Vital Signs (12 hours) Temp Pulse Resp BP BP Pulse Ox 09/05/17 09:14 66 133/62 09/05/17 09:13 66 133/62 09/05/17 08:40 98.1 F 66 19 133/62 93 L 09/05/17 03:49 98.2 F 64 20 126/60 09/05/17 00:05 98.4 F 58 L 16 100 Weight Weight 155 lb 1.6 oz I&O: 09/04/17 09/05/17 09/06/17 06:59 06:59 06:59 Intake Total 100 1340 Output Total 200 Balance -100 1340 Result Diagrams: 09/04/17 04:04 09/04/17 04:04 Phys Exam - Physical Examination Constitutional: NAD HEENT: PERRLA, moist MMs, sclera anicteric Neck: no JVD, supple Respiratory: no wheezing, no rales, no rhonchi Cardiovascular: RRR, no significant murmur, no rub Gastrointestinal: soft, non-tender, no distention, positive bowel sounds Musculoskeletal: no edema, pulses present Neurological: non-focal, normal sensation, moves all 4 limbs Psychiatric: normal affect, A&O x 3 Skin: no rash, normal turgor Dx/Plan (1) Volume overload Code(s): E87.70 - FLUID OVERLOAD, UNSPECIFIED Status: Acute Qualifiers: Hypervolemia type: unspecified Qualified Code(s): E87.70 - Fluid overload, unspecified (2) Acute on chronic combined systolic and diastolic CHF (congestive heart failure) Code(s): I50.43 - ACUTE ON CHRONIC COMBINED SYSTOLIC AND DIASTOLIC HRT FAIL Status: Acute (3) Acute respiratory failure with hypoxemia Code(s): J96.01 - ACUTE RESPIRATORY FAILURE WITH HYPOXIA Status: Acute (4) Anemia of renal disease Code(s): D63.1 - ANEMIA IN CHRONIC KIDNEY DISEASE Status: Chronic (5) DM type 2 (diabetes mellitus, type 2) Status: Chronic Qualifiers: (6) ESRD (end stage renal disease) on dialysis Code(s): N18.6 - END STAGE RENAL DISEASE; Z99.2 - DEPENDENCE ON RENAL DIALYSIS Status: Chronic (7) HTN (hypertension) Code(s): I10 - ESSENTIAL (PRIMARY) HYPERTENSION Status: Chronic (8) Hyperuricemia Code(s): E79.0 - HYPERURICEMIA W/O SIGNS OF INFLAM ARTHRIT AND TOPHACEOUS DIS Status: Chronic (9) Noncompliance with medication regimen Code(s): Z91.14 - PATIENT'S OTHER NONCOMPLIANCE WITH MEDICATION REGIMEN Status : Chronic (10) Secondary hyperparathyroidism of renal origin Code(s): N25.81 - SECONDARY HYPERPARATHYROIDISM OF RENAL ORIGIN Status: Chronic (11) Vitamin D deficiency Code(s): E55.9 - VITAMIN D DEFICIENCY, UNSPECIFIED Status: Chronic (12) Hyperkalemia Code(s): E87.5 - HYPERKALEMIA Status: Resolved - 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, 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 * HD as per nephrology * social work for outpt HD arrangementi * medication reviewed as below * symptomatic treatment Review of Systems - Review of Systems ENT: negative: Ear Pain, Ear Discharge, Nose Pain, Nose Discharge, Nose Congestion, Mouth Pain, Mouth Swelling, Throat Pain, Throat Swelling, Other Respiratory: negative: Cough, Dry, Shortness of Breath, Hemoptysis, SOB with Excertion, Pleuritic Pain, Sputum, Wheezing Cardiovascular: negative: chest pain, palpitations, orthopnea, paroxysmal nocturnal dyspnea, edema, light headedness, other Gastrointestinal: negative: Nausea, Vomiting, Abdominal Pain, Diarrhea, Constipation, Melena, Hematochezia, Other Genitourinary: negative: Dysuria, Frequency, Incontinence, Hematuria, Retention , Other Musculoskeletal: negative: Neck Pain, Shoulder Pain, Arm Pain, Back Pain, Hand Pain, Leg Pain, Foot Pain, Other Skin: negative: Rash, Lesions, Reji, Bruising, Other - Medications/Allergies Allergies/Adverse Reactions: Allergies Allergy/AdvReac Type Severity Reaction Status Date / Time No Known Drug Allergies Allergy Verified 08/03/17 22:29 Medications: Current Medications Acetaminophen (Tylenol) 650 mg PO Q4H PRN PRN Reason: Headache/Fever or Pain Hydrocodone Bitart/Acetaminophen ([place] 5/325) 1 tab PO Q4H PRN PRN Reason: Moderate Pain (4-6) Al Hydroxide/Mg Hydroxide (Maalox) 30 ml PO Q6H PRN PRN Reason: Heartburn or Indigestion Allopurinol (Zyloprim) 100 mg PO DAILY [facility] Last Admin: 09/05/17 09:16 Dose: 100 mg Artificial Tears (Tears Naturale) 0 drop EA EYE PRN PRN PRN Reason: Dry Eyes Aspirin (Aspirin Chewable) 81 mg PO DAILY [facility] Last Admin: 09/05/17 09:13 Dose: 81 mg Calcitriol (Rocaltrol) 0.25 mcg PO DAILY [facility] Last Admin: 09/05/17 09:10 Dose: 0.25 mcg Calcium Acetate ([facility]lo) [facility] Last Admin: 09/05/17 09:15 Dose: 1,334 mg Calcium Carbonate (Tums) 1,000 mg PO BID [facility] Last Admin: 09/05/17 09:11 Dose: 1,000 mg Carvedilol (Coreg) 12.[facility] Last Admin: 09/05/17 09:13 Dose: 12.5 mg Epoetin [place] (Procrit) 10,000 units IVP MoWeFr@0900 [facility] Famotidine (Pepcid) 20 mg PO DAILY [facility] Last Admin: 09/05/17 09:17 Dose: 20 mg Ferrous Sulfate (Feosol) [facility] Last Admin: 09/05/17 09:13 Dose: 325 mg Guaifenesin (Robitussin Sf) 200 mg PO Q4H PRN PRN Reason: Cough Heparin Sodium (Porcine) (Heparin) 5,000 units SC BID [facility] Last Admin: 09/05/17 09:17 Dose: 5,000 units Hydralazine HCl (Apresoline) 10 mg SLOW IVP Q4H PRN PRN Reason: Systolic BP > 180 Hydralazine HCl (Apresoline) 25 mg PO QID [facility] Last Admin: 09/05/17 09:13 Dose: 25 mg Loperamide HCl (Imodium) 2 mg PO PRN PRN PRN Reason: Diarrhea/Loose Stools Loratadine (Claritin) 10 mg PO DAILYPRN PRN PRN Reason: Sinus Symptoms Magnesium Hydroxide (Milk Of Magnesium) 30 ml PO DAILYPRN PRN PRN Reason: Constipation Mineral Oil/White Petrolatum (Eucerin Cream) 0 gm TOP BIDPRN PRN PRN Reason: Dry Skin Nifedipine (Procardia Xl) 30 mg PO DAILY [facility] Last Admin: 09/05/17 09:14 Dose: 30 mg Nitroglycerin (Nitrostat) 0.4 mg SL Q5MIN PRN PRN Reason: Chest Pain Nitroglycerin (Nitro-Bid 2% Ointment) 0.5 inch TOP Q8HR [facility] Last Admin: 09/05/17 09:09 Dose: 0.5 inch Ondansetron HCl (Zofran Odt) 4 mg PO Q6H PRN PRN Reason: Nausea/Vomiting Ondansetron HCl (Zofran) 4 mg IVP Q6H PRN PRN Reason: Nausea/Vomiting Phenol (Chloraseptic [place] 180 Ml Bot) 0 ml PO PRN PRN PRN Reason: Sore Throat Pravastatin Sodium (Pravachol) [facility] Last Admin: 09/04/17 20:29 Dose: 20 mg Senna (Senokot) 2 tab PO HSPRN PRN PRN Reason: Constipation Sodium Chloride ([place] Nasal [place] 0.65%) 0 ml EA NARE QIDPRN PRN PRN Reason: Nasal Congestion Sodium Chloride (Flush - Normal Saline) 10 ml IVF PRN PRN PRN Reason: Saline Flush Zolpidem Tartrate (Ambien) 5 mg PO HSPRN PRN PRN Reason: Insomnia
[2017-09-05] MEDS ORDERED: Heparin 10,000 UNITS/ 10 ML VIAL ONE (14:45)
[2017-09-05] MEDS: Epoetin (ESRD) 10,000 UNITS/ML VIAL IVP SCH (19:01)
[2017-09-05] MEDS: Pravastatin Sodium 20 MG TAB PO SCH (21:24)
--- NOTE | 2017-09-05 23:52 | PRG ---
DATE OF SERVICE: 09/05/2017 SUBJECTIVE: Patient was seen and examined at bedside and overnight events noted. Patient denies any shortness of breath or chest pain or palpitation. No history of nausea or vomitin g or diarrhea or fever or chills or cramps. OBJECTIVE: GENERAL: This is a well-built male, in no apparent distress. VITAL SIGNS: Temperature 99.4, pulse 78, respiratory rate 18, blood pressure 137/60. HEENT: Atraumatic, normocephalic. Oral mucosa is moist NECK: Supple. CARDIOVASCULAR: S1 and S2 heard. Rate and rhythm regular. RESPIRATORY: Clear to auscultation. GASTROINTESTINAL: Abdomen is soft. MUSCULOSKELETAL: No tenderness. No edema. DERMATOLOGIC: No skin rash. NEUROLOGIC: Alert and awake and oriented X3, No focal neurologic deficits. Moving all the extremitie s. PSYCHIATRIC: Mood and affect normal. LABORATORY DATA: Potassium is 4.3, BUN is 25, creatinine 4.5. ASSESSMENT AND PLAN: 1. End-stage renal disease, on hemodialysis. We will continue on dialysis as tolerated. 2. Hyperkalemia, with acidosis. 3. Anemia . 4. Edema. 5. Hypertension. Plan is to continue on dialysis as tolerated. Follow with case management for outpatient placement.
[2017-09-06] MEDS: Nitroglycerin 2% Ointment 1 INCH/1 GM Packet TOP SCH ×2 (06:43→14:26)
[2017-09-06] MEDS: Calcium Acetate 667 MG CAP PO SCH ×3 (09:23→17:48)
[2017-09-06] MEDS: Calcitriol 0.25 MCG CAP PO SCH (09:24)
[2017-09-06] MEDS: Calcium Carbonate 500 MG ChewTAB PO SCH ×2 (09:24→23:59)
[2017-09-06] MEDS: hydrALAZINE 25 MG TAB PO SCH ×4 (09:24→23:57)
[2017-09-06] MEDS: Carvedilol 6.25 MG TAB PO SCH ×2 (09:24→17:48)
[2017-09-06] MEDS: Famotidine 20 MG TAB PO SCH (09:25)
[2017-09-06] MEDS: Ferrous Sulfate 325 MG TAB PO SCH (09:25)
[2017-09-06] MEDS: Heparin 5,000 UNITS/ML VIAL SC SCH (09:25)
[2017-09-06] MEDS: NIFEdipine XL 30 MG TAB PO SCH (09:26)
[2017-09-06] MEDS: Allopurinol 100 MG TAB PO SCH (09:26)
--- NOTE | 2017-09-06 10:09 | PDOC.PN ---
- Subjective Encounter Start Date: 09/06/17 Encounter Start Time: 07:50 Patient seen and examined. No new complaints. No overnight events - Objective Resuscitation Status: Resuscitation Status FULL:Full Resuscitation MAR Reviewed: Yes Vital Signs & Weight: Vital Signs (12 hours) Temp Pulse Resp BP BP Pulse Ox 09/06/17 09:26 68 135/65 09/06/17 09:24 68 135/65 09/06/17 08:46 98.1 F 68 19 98 09/06/17 08:00 98.1 F 68 19 135/65 99 Weight Weight 155 lb 1.6 oz I&O: 09/05/17 09/06/17 09/07/17 06:59 06:59 06:59 Intake Total 1340 500 Output Total 200 Balance 1340 300 Result Diagrams: 09/04/17 04:04 09/04/17 04:04 Phys Exam - Physical Examination Constitutional: NAD HEENT: PERRLA, moist MMs, sclera anicteric Neck: no JVD, supple Respiratory: no wheezing, no rales, no rhonchi Cardiovascular: RRR, no significant murmur, no rub Gastrointestinal: soft, non-tender, no distention, positive bowel sounds Musculoskeletal: no edema, pulses present Neurological: non-focal, normal sensation, moves all 4 limbs Lymphatic: no nodes Psychiatric: normal affect, A&O x 3 Skin: no rash, normal turgor Dx/Plan (1) Volume overload Code(s): E87.70 - FLUID OVERLOAD, UNSPECIFIED Status: Acute Qualifiers: Hypervolemia type: unspecified Qualified Code(s): E87.70 - Fluid overload, unspecified (2) Acute on chronic combined systolic and diastolic CHF (congestive heart failure) Code(s): I50.43 - ACUTE ON CHRONIC COMBINED SYSTOLIC AND DIASTOLIC HRT FAIL Status: Acute (3) Acute respiratory failure with hypoxemia Code(s): J96.01 - ACUTE RESPIRATORY FAILURE WITH HYPOXIA Status: Acute (4) Anemia of renal disease Code(s): D63.1 - ANEMIA IN CHRONIC KIDNEY DISEASE Status: Chronic (5) DM type 2 (diabetes mellitus, type 2) Status: Chronic Qualifiers: (6) ESRD (end stage renal disease) on dialysis Code(s): N18.6 - END STAGE RENAL DISEASE; Z99.2 - DEPENDENCE ON RENAL DIALYSIS Status: Chronic (7) HTN (hypertension) Code(s): I10 - ESSENTIAL (PRIMARY) HYPERTENSION Status: Chronic (8) Hyperuricemia Code(s): E79.0 - HYPERURICEMIA W/O SIGNS OF INFLAM ARTHRIT AND TOPHACEOUS DIS Status: Chronic (9) Noncompliance with medication regimen Code(s): Z91.14 - PATIENT'S OTHER NONCOMPLIANCE WITH MEDICATION REGIMEN Status : Chronic (10) Secondary hyperparathyroidism of renal origin Code(s): N25.81 - SECONDARY HYPERPARATHYROIDISM OF RENAL ORIGIN Status: Chronic (11) Vitamin D deficiency Code(s): E55.9 - VITAMIN D DEFICIENCY, UNSPECIFIED Status: Chronic (12) Hyperkalemia Code(s): E87.5 - HYPERKALEMIA Status: Resolved - 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 Review of Systems - Review of Systems ENT: negative: Ear Pain, Ear Discharge, Nose Pain, Nose Discharge, Nose Congestion, Mouth Pain, Mouth Swelling, Throat Pain, Throat Swelling, Other Respiratory: negative: Cough, Dry, Shortness of Breath, Hemoptysis, SOB with Excertion, Pleuritic Pain, Sputum, Wheezing Cardiovascular: negative: chest pain, palpitations, orthopnea, paroxysmal nocturnal dyspnea, edema, light headedness, other Gastrointestinal: negative: Nausea, Vomiting, Abdominal Pain, Diarrhea, Constipation, Melena, Hematochezia, Other Genitourinary: negative: Dysuria, Frequency, Incontinence, Hematuria, Retention , Other Musculoskeletal: negative: Neck Pain, Shoulder Pain, Arm Pain, Back Pain, Hand Pain, Leg Pain, Foot Pain, Other Skin: negative: Rash, Lesions, Reji, Bruising, Other - Medications/Allergies Allergies/Adverse Reactions: Allergies Allergy/AdvReac Type Severity Reaction Status Date / Time No Known Drug Allergies Allergy Verified 08/03/17 22:29 Medications: Current Medications Acetaminophen (Tylenol) 650 mg PO Q4H PRN PRN Reason: Headache/Fever or Pain Hydrocodone Bitart/Acetaminophen ([place] 5/325) 1 tab PO Q4H PRN PRN Reason: Moderate Pain (4-6) Al Hydroxide/Mg Hydroxide (Maalox) 30 ml PO Q6H PRN PRN Reason: Heartburn or Indigestion Allopurinol (Zyloprim) 100 mg PO DAILY [facility] Last Admin: 09/06/17 09:26 Dose: 100 mg Artificial Tears (Tears Naturale) 0 drop EA EYE PRN PRN PRN Reason: Dry Eyes Aspirin (Aspirin Chewable) 81 mg PO DAILY [facility] Last Admin: 09/06/17 09:25 Dose: 81 mg Calcitriol (Rocaltrol) 0.25 mcg PO DAILY [facility] Last Admin: 09/06/17 09:24 Dose: 0.25 mcg [facility]cium [facility]ate ([facility]lo) [facility] Last Admin: 09/06/17 09:23 Dose: 1,334 mg Calcium Carbonate (Tums) 1,000 mg PO BID [facility] Last Admin: 09/06/17 09:24 Dose: 1,000 mg [facility]vedil[facility] ([facility]g) [facility] Last Admin: 09/06/17 09:24 Dose: 12.5 mg Epoetin Branden (Procrit) 10,000 units IVP MoWeFr@0900 [facility] Last Admin: 09/05/17 19:01 Dose: Not Given Famotidine (Pepcid) 20 mg PO DAILY [facility] Last Admin: 09/06/17 09:25 Dose: 20 mg Ferrous Sulfate (Feosol) 325 mg PO [facility]AM[facility] Last Admin: 09/06/17 09:25 Dose: 325 mg Guaifenesin (Robitussin Sf) 200 mg PO Q4H PRN PRN Reason: Cough Heparin Sodium (Porcine) (Heparin) 5,000 units SC BID [facility] Last Admin: 09/06/17 09:25 Dose: 5,000 units Hydralazine HCl (Apresoline) 10 mg SLOW IVP Q4H PRN PRN Reason: Systolic BP > 180 Hydralazine HCl (Apresoline) 25 mg PO QID [facility] Last Admin: 09/06/17 09:24 Dose: 25 mg Loperamide HCl (Imodium) 2 mg PO PRN PRN PRN Reason: Diarrhea/Loose Stools Loratadine (Claritin) 10 mg PO DAILYPRN PRN PRN Reason: Sinus Symptoms Magnesium Hydroxide (Milk Of Magnesium) 30 ml PO DAILYPRN PRN PRN Reason: Constipation Mineral Oil/White Petrolatum (Eucerin Cream) 0 gm TOP BIDPRN PRN PRN Reason: Dry Skin Nifedipine (Procardia Xl) 30 mg PO DAILY [facility] Last Admin: 09/06/17 09:26 Dose: 30 mg Nitroglycerin (Nitrostat) 0.4 mg SL Q5MIN PRN PRN Reason: Chest Pain Nitroglycerin (Nitro-Bid 2% Ointment) 0.5 inch TOP Q8HR [facility] Last Admin: 09/06/17 06:43 Dose: 0.5 inch Ondansetron HCl (Zofran Odt) 4 mg PO Q6H PRN PRN Reason: Nausea/Vomiting Ondansetron HCl (Zofran) 4 mg IVP Q6H PRN PRN Reason: Nausea/Vomiting Phenol (Chloraseptic [place] 180 Ml Bot) 0 ml PO PRN PRN PRN Reason: Sore Throat Pravastatin Sodium (Pravachol) 20 mg PO [facility] Last Admin: 09/05/17 21:24 Dose: 20 mg Senna (Senokot) 2 tab PO HSPRN PRN PRN Reason: Constipation Sodium Chloride ([place] Nasal [place] 0.65%) 0 ml EA NARE QIDPRN PRN PRN Reason: Nasal Congestion Sodium Chloride (Flush - Normal Saline) 10 ml IVF PRN PRN PRN Reason: Saline Flush Last Admin: 09/06/17 09:26 Dose: 10 ml Zolpidem Tartrate (Ambien) 5 mg PO HSPRN PRN PRN Reason: Insomnia
--- NOTE | 2017-09-06 22:47 | PRG ---
DATE OF SERVICE: 09/06/2017 SUBJECTIVE: Patient was seen and examined at bedside and overnight events noted. Patient denies any shortness of breath or chest pain or palpitation. No history of nausea or vomiting or diarrhea or f ever or chills or cramps. OBJECTIVE: GENERAL: This is a well-built male in no apparent distress. VITAL SIGNS: Temperature 98.7, pulse 69, respiratory rate 16, blood pressure 115/47. HEENT: Atraumatic, normocephalic. Oral mucosa is moist. NECK: Supple. CARDIOVASCULAR: S1, S2 heard. Rate and rhythm regular. RESPIRATORY: Clear to auscultation. GASTROINTESTINAL: Abdomen is soft. MUSCULOSKELETAL: No tenderness. No edema. DERMATOLOGIC: No skin rash. NEUROLOGIC: Alert and awake and oriented x3. No focal neurologic deficits. Moving all the extremit ies. PSYCHIATRIC: Mood and affect normal. LABORATORY DATA: Potassium is 4.3, BUN is 25, creatinine is 4.5. ASSESSMENT AND PLAN: 1. End-stage renal disease. Continue on hemodialysis. Follow with case management for outpatient p lacement. 2. Hyperkalemia, better. 3. Acidosis. 4. Anemia. 5. Edema. 6. Hypertension. Plan is to follow with case management for outpatient placement.
[2017-09-07] MEDS: Pravastatin Sodium 20 MG TAB PO SCH ×2 (00:01→22:11)
[2017-09-07] MEDS: Heparin 5,000 UNITS/ML VIAL SC SCH ×3 (00:01→22:12)
[2017-09-07] MEDS: Nitroglycerin 2% Ointment 1 INCH/1 GM Packet TOP SCH ×4 (06:48→22:11)
[2017-09-07] MEDS: Epoetin (ESRD) 10,000 UNITS/ML VIAL IVP SCH (09:19)
--- NOTE | 2017-09-07 09:23 | PRG ---
DATE OF SERVICE: 09/07/2017 SUBJECTIVE: This 61-year-old gentleman being seen for end-stage renal disease. Patient denies any n ausea, vomiting or chest pain. PHYSICAL EXAMINATION: GENERAL: Patient is awake, alert. VITAL SIGNS: Afebrile, pulse 90, breathing at 16, blood pressure 136/54. HEAD/NECK: Normocephalic. Atraumatic. EYES: EOMI. No deformity. EARS: Clear. No ulcers. NOSE: Intact. No lesions. MOUTH: Clear. No discharge. THROAT: Clear. No exudate. LUNGS: Clear. No crackles. CARDIAC: S1, S2. No rub. ABDOMEN: Benign. BS+. GENITALIA/RECTUM: Teague absent. BACK/EXTREMITIES: Edema 0+ Ulcer- NEUROLOGICAL: Alert and motor intact. SKIN: Rash- Bruise- LYMPHATICS: Edema- Ulcer- LABORATORY DATA: Show hemoglobin is 8.9. ASSESSMENT AND RECOMMENDATIONS: 1. Stage 6 chronic kidney disease, continue hemodialysis. 2. Hypertension, stable. 3. Anemia, stable. 4. Medications based on glomerular filtration rate are appropriate.
--- NOTE | 2017-09-07 10:16 | PDOC.PN ---
- Subjective Encounter Start Date: 09/07/17 Encounter Start Time: 07:25 Patient seen and examined. No new complaints. No overnight events - Objective Resuscitation Status: Resuscitation Status FULL:Full Resuscitation MAR Reviewed: Yes Vital Signs & Weight: Vital Signs (12 hours) Temp Pulse Resp BP BP 09/07/17 04:28 99.1 F 70 18 136/64 09/06/17 23:57 75 136/62 09/06/17 23:55 99.6 F 75 20 136/62 Weight Weight 155 lb 1.6 oz I&O: 09/06/17 09/07/17 09/08/17 06:59 06:59 06:59 Intake Total 500 960 Output Total 200 125 Balance 300 835 Result Diagrams: 09/04/17 04:04 09/04/17 04:04 Phys Exam - Physical Examination Constitutional: NAD HEENT: PERRLA, moist MMs, sclera anicteric Neck: no JVD, supple Respiratory: no wheezing, no rales, no rhonchi Cardiovascular: RRR, no significant murmur, no rub Gastrointestinal: soft, non-tender, no distention, positive bowel sounds Musculoskeletal: no edema, pulses present Neurological: non-focal, normal sensation, moves all 4 limbs Lymphatic: no nodes Psychiatric: normal affect, A&O x 3 Skin: no rash, normal turgor Dx/Plan (1) Volume overload Code(s): E87.70 - FLUID OVERLOAD, UNSPECIFIED Status: Acute Qualifiers: Hypervolemia type: unspecified Qualified Code(s): E87.70 - Fluid overload, unspecified (2) Acute on chronic combined systolic and diastolic CHF (congestive heart failure) Code(s): I50.43 - ACUTE ON CHRONIC COMBINED SYSTOLIC AND DIASTOLIC HRT FAIL Status: Acute (3) Acute respiratory failure with hypoxemia Code(s): J96.01 - ACUTE RESPIRATORY FAILURE WITH HYPOXIA Status: Acute (4) Anemia of renal disease Code(s): D63.1 - ANEMIA IN CHRONIC KIDNEY DISEASE Status: Chronic (5) DM type 2 (diabetes mellitus, type 2) Status: Chronic Qualifiers: (6) ESRD (end stage renal disease) on dialysis Code(s): N18.6 - END STAGE RENAL DISEASE; Z99.2 - DEPENDENCE ON RENAL DIALYSIS Status: Chronic (7) HTN (hypertension) Code(s): I10 - ESSENTIAL (PRIMARY) HYPERTENSION Status: Chronic (8) Hyperuricemia Code(s): E79.0 - HYPERURICEMIA W/O SIGNS OF INFLAM ARTHRIT AND TOPHACEOUS DIS Status: Chronic (9) Noncompliance with medication regimen Code(s): Z91.14 - PATIENT'S OTHER NONCOMPLIANCE WITH MEDICATION REGIMEN Status : Chronic (10) Secondary hyperparathyroidism of renal origin Code(s): N25.81 - SECONDARY HYPERPARATHYROIDISM OF RENAL ORIGIN Status: Chronic (11) Vitamin D deficiency Code(s): E55.9 - VITAMIN D DEFICIENCY, UNSPECIFIED Status: Chronic (12) Hyperkalemia Code(s): E87.5 - HYPERKALEMIA Status: Resolved - 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 * medication reviewed as below * symptomatic treatment * once outpt HD arranged, will consider discharge. Review of Systems - Review of Systems Constitutional: negative: fever, chills, sweats, weakness, malaise, other ENT: negative: Ear Pain, Ear Discharge, Nose Pain, Nose Discharge, Nose Congestion, Mouth Pain, Mouth Swelling, Throat Pain, Throat Swelling, Other Respiratory: negative: Cough, Dry, Shortness of Breath, Hemoptysis, SOB with Excertion, Pleuritic Pain, Sputum, Wheezing Cardiovascular: negative: chest pain, palpitations, orthopnea, paroxysmal nocturnal dyspnea, edema, light headedness, other Gastrointestinal: negative: Nausea, Vomiting, Abdominal Pain, Diarrhea, Constipation, Melena, Hematochezia, Other Genitourinary: negative: Dysuria, Frequency, Incontinence, Hematuria, Retention , Other Musculoskeletal: negative: Neck Pain, Shoulder Pain, Arm Pain, Back Pain, Hand Pain, Leg Pain, Foot Pain, Other Skin: negative: Rash, Lesions, Reji, Bruising, Other Neurological: negative: Weakness, Numbness, Incoordination, Change in Speech, Confusion, Seizures, Other - Medications/Allergies Allergies/Adverse Reactions: Allergies Allergy/AdvReac Type Severity Reaction Status Date / Time No Known Drug Allergies Allergy Verified 08/03/17 22:29 Medications: Current Medications Acetaminophen (Tylenol) 650 mg PO Q4H PRN PRN Reason: Headache/Fever or Pain Hydrocodone Bitart/Acetaminophen ([place] 5/325) 1 tab PO Q4H PRN PRN Reason: Moderate Pain (4-6) Al Hydroxide/Mg Hydroxide (Maalox) 30 ml PO Q6H PRN PRN Reason: Heartburn or Indigestion Allopurinol (Zyloprim) 100 mg PO DAILY [facility] Last Admin: 09/06/17 09:26 Dose: 100 mg Artificial Tears (Tears Naturale) 0 drop EA EYE PRN PRN PRN Reason: Dry Eyes Aspirin (Aspirin Chewable) 81 mg PO DAILY [facility] Last Admin: 09/06/17 09:25 Dose: 81 mg Calcitriol (Rocaltrol) 0.25 mcg PO DAILY [facility] Last Admin: 09/06/17 09:24 Dose: 0.25 mcg Calcium Acetate (Phoslo) 1,334 mg PO [facility] Last Admin: 09/06/17 17:48 Dose: 1,334 mg Calcium Carbonate (Tums) 1,000 mg PO BID [facility] Last Admin: 09/06/17 23:59 Dose: 1,000 mg Carvedilol (Coreg) 12.5 [facility] Last Admin: 09/06/17 17:48 Dose: 12.5 mg Epoetin Branden (Procrit) 10,000 units IVP MoWeFr@0900 [facility] Last Admin: 09/07/17 09:19 Dose: 10,000 units Famotidine (Pepcid) 20 mg PO DAILY [facility] Last Admin: 09/06/17 09:25 Dose: 20 mg Ferrous Sulfate (Feosol) 325 mg PO [facility]AM[facility] Last Admin: 09/06/17 09:25 Dose: 325 mg Guaifenesin (Robitussin Sf) 200 mg PO Q4H PRN PRN Reason: Cough Heparin Sodium (Porcine) (Heparin) 5,000 units SC BID [facility] Last Admin: 09/07/17 00:01 Dose: 5,000 units Hydralazine HCl (Apresoline) 10 mg SLOW IVP Q4H PRN PRN Reason: Systolic BP > 180 Hydralazine HCl (Apresoline) 25 mg PO QID [facility] Last Admin: 09/06/17 23:57 Dose: 25 mg Loperamide HCl (Imodium) 2 mg PO PRN PRN PRN Reason: Diarrhea/Loose Stools Loratadine (Claritin) 10 mg PO DAILYPRN PRN PRN Reason: Sinus Symptoms Magnesium Hydroxide (Milk Of Magnesium) 30 ml PO DAILYPRN PRN PRN Reason: Constipation Mineral Oil/White Petrolatum (Eucerin Cream) 0 gm TOP BIDPRN PRN PRN Reason: Dry Skin Nifedipine (Procardia Xl) 30 mg PO DAILY [facility] Last Admin: 09/06/17 09:26 Dose: 30 mg Nitroglycerin (Nitrostat) 0.4 mg SL Q5MIN PRN PRN Reason: Chest Pain Nitroglycerin (Nitro-Bid 2% Ointment) 0.5 inch TOP Q8HR [facility] Last Admin: 09/07/17 06:48 Dose: 0.5 inch Ondansetron HCl (Zofran Odt) 4 mg PO Q6H PRN PRN Reason: Nausea/Vomiting Ondansetron HCl (Zofran) 4 mg IVP Q6H PRN PRN Reason: Nausea/Vomiting Phenol (Chloraseptic [place] 180 Ml Bot) 0 ml PO PRN PRN PRN Reason: Sore Throat Pravastatin Sodium (Pravachol) 20 mg PO [facility] Last Admin: 09/07/17 00:01 Dose: 20 mg Senna (Senokot) 2 tab PO HSPRN PRN PRN Reason: Constipation Sodium Chloride ([place] Nasal [place] 0.65%) 0 ml EA NARE QIDPRN PRN PRN Reason: Nasal Congestion Sodium Chloride (Flush - Normal Saline) 10 ml IVF PRN PRN PRN Reason: Saline Flush Last Admin: 09/06/17 09:26 Dose: 10 ml Zolpidem Tartrate (Ambien) 5 mg PO HSPRN PRN PRN Reason: Insomnia
[2017-09-07] MEDS ORDERED: Heparin 1,000 UNITS/ML VIAL ONE (11:11)
[2017-09-07] MEDS: Allopurinol 100 MG TAB PO SCH (12:24)
[2017-09-07] MEDS: Famotidine 20 MG TAB PO SCH (12:24)
[2017-09-07] MEDS: Calcium Acetate 667 MG CAP PO SCH ×3 (12:24→17:37)
[2017-09-07] MEDS: Calcitriol 0.25 MCG CAP PO SCH (12:24)
[2017-09-07] MEDS: hydrALAZINE 25 MG TAB PO SCH ×4 (12:25→22:11)
[2017-09-07] MEDS: Calcium Carbonate 500 MG ChewTAB PO SCH ×2 (12:25→22:12)
[2017-09-07] MEDS: Carvedilol 6.25 MG TAB PO SCH ×2 (12:25→17:36)
[2017-09-07] MEDS: Ferrous Sulfate 325 MG TAB PO SCH (12:25)
[2017-09-07] MEDS: NIFEdipine XL 30 MG TAB PO SCH (12:28)
[2017-09-08] MEDS: Nitroglycerin 2% Ointment 1 INCH/1 GM Packet TOP SCH ×3 (06:56→22:32)
[2017-09-08] MEDS: Carvedilol 6.25 MG TAB PO SCH ×2 (09:05→18:15)
[2017-09-08] MEDS: Calcium Carbonate 500 MG ChewTAB PO SCH ×2 (09:05→22:30)
[2017-09-08] MEDS: hydrALAZINE 25 MG TAB PO SCH ×4 (09:06→22:31)
[2017-09-08] MEDS: Famotidine 20 MG TAB PO SCH (09:06)
[2017-09-08] MEDS: Calcitriol 0.25 MCG CAP PO SCH (09:06)
[2017-09-08] MEDS: Ferrous Sulfate 325 MG TAB PO SCH (09:06)
[2017-09-08] MEDS: Calcium Acetate 667 MG CAP PO SCH ×3 (09:34→18:18)
[2017-09-08] MEDS: Allopurinol 100 MG TAB PO SCH (12:31)
[2017-09-08] MEDS: NIFEdipine XL 30 MG TAB PO SCH (12:32)
[2017-09-08] MEDS: Heparin 5,000 UNITS/ML VIAL SC SCH ×2 (12:34→22:31)
--- NOTE | 2017-09-08 13:39 | PDOC.PN ---
- Subjective Encounter Start Date: 09/08/17 Encounter Start Time: 13:38 Patient seen and examined, no new issues - Objective Resuscitation Status: Resuscitation Status FULL:Full Resuscitation Vital Signs & Weight: Vital Signs (12 hours) Temp Pulse Resp BP Pulse Ox 09/08/17 12:00 98.3 F 66 20 140/67 09/08/17 08:00 97.6 F 64 20 141/67 H 09/08/17 05:40 98.3 F 63 16 111/56 L 92 L Weight Weight 155 lb 1.6 oz I&O: 09/07/17 09/08/17 09/09/17 06:59 06:59 06:59 Intake Total 960 Output Total 125 2700 Balance 835 -2700 Result Diagrams: 09/04/17 04:04 09/04/17 04:04 Phys Exam - Physical Examination Constitutional: NAD HEENT: PERRLA, moist MMs Neck: no nodes, no JVD Respiratory: no wheezing, no rales Cardiovascular: RRR, no significant murmur Gastrointestinal: soft, non-tender Musculoskeletal: no edema, pulses present Neurological: non-focal, normal sensation Lymphatic: no nodes Psychiatric: normal affect, A&O x 3 Dx/Plan (1) Acute on chronic combined systolic and diastolic CHF (congestive heart failure) Code(s): I50.43 - ACUTE ON CHRONIC COMBINED SYSTOLIC AND DIASTOLIC HRT FAIL Status: Acute (2) Anemia of renal disease Code(s): D63.1 - ANEMIA IN CHRONIC KIDNEY DISEASE Status: Chronic (3) DM type 2 (diabetes mellitus, type 2) Status: Chronic Qualifiers: (4) ESRD (end stage renal disease) on dialysis Code(s): N18.6 - END STAGE RENAL DISEASE; Z99.2 - DEPENDENCE ON RENAL DIALYSIS Status: Chronic (5) HTN (hypertension) Code(s): I10 - ESSENTIAL (PRIMARY) HYPERTENSION Status: Chronic (6) Secondary hyperparathyroidism of renal origin Code(s): N25.81 - SECONDARY HYPERPARATHYROIDISM OF RENAL ORIGIN Status: Chronic (7) Hyperkalemia Code(s): E87.5 - HYPERKALEMIA Status: Resolved - Plan * continue current plan of care * HD per renal * pending out patient HD placement * case and plan d/w patient at length, in khmer, he understands and agrees with this plan
--- NOTE | 2017-09-08 13:48 | PRG ---
DATE OF SERVICE: 09/08/2017 SUBJECTIVE: A 61-year-old gentleman being seen for end-stage renal disease. Patient denies any naus ea, vomiting or chest pain. PHYSICAL EXAMINATION: GENERAL: Patient is awake, alert. VITAL SIGNS: Afebrile, pulse 64, breathing at 15, blood pressure 141/69. HEAD/NECK: Normocephalic. Atraumatic. EYES: EOMI. No deformity. EARS: Clear. No ulcers. NOSE: Intact. No lesions. MOUTH: Clear. No discharge. THROAT: Clear. No exudate. LUNGS: Clear. No crackles. CARDIAC: S1, S2. No rub. ABDOMEN: Benign. BS+. GENITALIA/RECTUM: Teague absent. BACK/EXTREMITIES: Edema 0+ Ulcer- NEUROLOGICAL: Alert and motor intact. SKIN: Rash- Bruise- LYMPHATICS: Edema- Ulcer- LABORATORY DATA: Show hemoglobin 8.9. ASSESSMENT AND RECOMMENDATIONS: 1. Stage 6 chronic kidney disease. Continue hemodialysis. 2. Hypertension, stable. 3. Anemia, stable. 4. Medications based on glomerular filtration rate are appropriate.
[2017-09-08] MEDS: Pravastatin Sodium 20 MG TAB PO SCH (22:31)
[2017-09-09] MEDS: Nitroglycerin 2% Ointment 1 INCH/1 GM Packet TOP SCH ×3 (05:48→21:26)
[2017-09-09] MEDS: Calcitriol 0.25 MCG CAP PO SCH (09:11)
[2017-09-09] MEDS: Heparin 5,000 UNITS/ML VIAL SC SCH ×2 (09:11→21:21)
[2017-09-09] MEDS: Calcium Acetate 667 MG CAP PO SCH ×3 (09:12→17:23)
[2017-09-09] MEDS: Allopurinol 100 MG TAB PO SCH (09:12)
[2017-09-09] MEDS: Carvedilol 6.25 MG TAB PO SCH ×2 (09:12→17:22)
[2017-09-09] MEDS: Calcium Carbonate 500 MG ChewTAB PO SCH ×2 (09:12→21:20)
[2017-09-09] MEDS: NIFEdipine XL 30 MG TAB PO SCH (09:13)
[2017-09-09] MEDS: Ferrous Sulfate 325 MG TAB PO SCH (09:13)
[2017-09-09] MEDS: hydrALAZINE 25 MG TAB PO SCH ×4 (09:13→21:21)
[2017-09-09] MEDS: Famotidine 20 MG TAB PO SCH (09:13)
--- NOTE | 2017-09-09 11:15 | PDOC.PN ---
- Subjective Encounter Start Date: 09/09/17 Encounter Start Time: 11:14 Patient seen and examined, all questions answered, no new issues. - Objective Resuscitation Status: Resuscitation Status FULL:Full Resuscitation Vital Signs & Weight: Vital Signs (12 hours) Temp Pulse Resp BP BP Pulse Ox 09/09/17 09:13 67 115/56 L 09/09/17 09:12 115/56 L 09/09/17 07:47 98.7 F 67 18 115/56 L 91 L 09/09/17 05:46 98.9 F 68 18 112/57 L Weight Weight 155 lb 1.6 oz I&O: 09/08/17 09/09/17 09/10/17 06:59 06:59 06:59 Output Total 2700 Balance -2700 Result Diagrams: 09/04/17 04:04 09/04/17 04:04 Phys Exam - Physical Examination Constitutional: NAD HEENT: PERRLA, moist MMs Neck: no nodes, no JVD Respiratory: no wheezing, no rales Cardiovascular: RRR, no significant murmur Gastrointestinal: soft, non-tender, no distention Musculoskeletal: no edema, pulses present Neurological: non-focal, normal sensation Psychiatric: normal affect, A&O x 3 Skin: no rash, normal turgor Dx/Plan (1) Acute on chronic combined systolic and diastolic CHF (congestive heart failure) Code(s): I50.43 - ACUTE ON CHRONIC COMBINED SYSTOLIC AND DIASTOLIC HRT FAIL Status: Acute (2) Anemia of renal disease Code(s): D63.1 - ANEMIA IN CHRONIC KIDNEY DISEASE Status: Chronic (3) DM type 2 (diabetes mellitus, type 2) Status: Chronic Qualifiers: (4) ESRD (end stage renal disease) on dialysis Code(s): N18.6 - END STAGE RENAL DISEASE; Z99.2 - DEPENDENCE ON RENAL DIALYSIS Status: Chronic (5) HTN (hypertension) Code(s): I10 - ESSENTIAL (PRIMARY) HYPERTENSION Status: Chronic (6) Secondary hyperparathyroidism of renal origin Code(s): N25.81 - SECONDARY HYPERPARATHYROIDISM OF RENAL ORIGIN Status: Chronic (7) Hyperkalemia Code(s): E87.5 - HYPERKALEMIA Status: Resolved - Plan * continue current plan of care * HD per renal * pending HD placement
--- NOTE | 2017-09-09 14:34 | PRG ---
DATE OF SERVICE: 09/09/2017 SUBJECTIVE: This is a 61-year-old gentleman being seen for end-stage renal disease. The patient den ies any nausea, vomiting, or chest pain. PHYSICAL EXAMINATION: GENERAL: Patient is awake, alert. VITAL SIGNS: Afebrile, pulse 68, breathing 16, blood pressure 134/63. HEAD/NECK: Normocephalic, atraumatic. EYES: EOMI. No deformity. EARS: Clear. No ulcers. NOSE: Intact. No lesions. MOUTH: Clear. No discharge. THROAT: Clear. No exudate. LUNGS: Clear. No crackles. CARDIAC: S1, S2. No rub. ABDOMEN: Benign. BS+. GENITALIA/RECTUM: Teague absent. BACK/EXTREMITIES: Edema 0+ Ulcer-. NEUROLOGICAL: Alert and motor intact. SKIN: Rash- Bruise- LYMPHATICS: Edema- Ulcer-. LABORATORY DATA: Show hemoglobin 8.9. ASSESSMENT AND RECOMMENDATIONS: 1. Stage 6 chronic kidney disease, continue hemodialysis. 2. Hypertension, stable. 2. Anemia, stable. 3. Medications based on glomerular filtration rate are appropriate. Discharge planning is in progress.
[2017-09-09] MEDS: Pravastatin Sodium 20 MG TAB PO SCH (21:21)
[2017-09-10] MEDS: Nitroglycerin 2% Ointment 1 INCH/1 GM Packet TOP SCH ×3 (05:57→22:02)
[2017-09-10] MEDS: Calcium Acetate 667 MG CAP PO SCH ×3 (09:25→17:27)
[2017-09-10] MEDS: Ferrous Sulfate 325 MG TAB PO SCH (09:25)
[2017-09-10] MEDS: Carvedilol 6.25 MG TAB PO SCH ×2 (09:25→17:26)
[2017-09-10] MEDS: Calcium Carbonate 500 MG ChewTAB PO SCH ×2 (09:26→21:11)
[2017-09-10] MEDS: Famotidine 20 MG TAB PO SCH (09:26)
[2017-09-10] MEDS: Calcitriol 0.25 MCG CAP PO SCH (09:26)
[2017-09-10] MEDS: Epoetin (ESRD) 10,000 UNITS/ML VIAL IVP SCH (09:44)
--- NOTE | 2017-09-10 09:44 | PRG ---
DATE OF SERVICE: 09/10/2017 SUBJECTIVE: Patient was seen and examined at bedside and overnight events noted. Patient denies any shortness of breath or chest pain or palpitation. No history of nausea or vomiting or diarrhea or f ever or chills or cramps. OBJECTIVE: GENERAL: This is a well built male, in no apparent distress. VITAL SIGNS: Temperature 98.3, pulse 64, respiration 16, blood pressure 124/62. HEENT: Atraumatic, normocephalic. Oral mucosa is moist. NECK: Supple. CARDIOVASCULAR: S1, S2 heard. Rate and rhythm regular. RESPIRATORY: Clear to auscultation. GASTROINTESTINAL: Abdomen is soft. MUSCULOSKELETAL: No tenderness, no edema. DERMATOLOGIC: No skin rash. NEUROLOGIC: Alert and awake and oriented x3. No focal neurologic deficits. Moving all the extremit ies. PSYCHIATRIC: Mood and affect normal. LABORATORY DATA: Potassium is 4.3, BUN is 25, creatinine is 4.5. ASSESSMENT AND PLAN: 1. End-stage renal disease on hemodialysis. Plan is to continue on dialysis as tolerated. 2. Hypertension. 3. Anemia. 4. Edema, controlled. 5. Awaiting placement. 6. Repeat labs
[2017-09-10] MEDS: Heparin 5,000 UNITS/ML VIAL SC SCH ×2 (10:53→21:12)
[2017-09-10] MEDS: hydrALAZINE 25 MG TAB PO SCH ×4 (10:53→21:11)
[2017-09-10] MEDS: NIFEdipine XL 30 MG TAB PO SCH (10:53)
[2017-09-10] MEDS: Allopurinol 100 MG TAB PO SCH (10:53)
--- NOTE | 2017-09-10 11:59 | PDOC.PN ---
- Subjective Encounter Start Date: 09/10/17 Encounter Start Time: 07:40 Patient seen and examined. No new complaints. No overnight events - Objective Resuscitation Status: Resuscitation Status FULL:Full Resuscitation MAR Reviewed: Yes Vital Signs & Weight: Vital Signs (12 hours) Temp Pulse Resp BP BP Pulse Ox 09/10/17 11:38 98.0 F 60 20 104/59 L 09/10/17 10:53 133/66 09/10/17 09:25 133/66 09/10/17 07:10 98.3 F 64 16 99 09/10/17 05:55 98.3 F 64 16 124/62 94 L Weight Weight 155 lb 1.6 oz I&O: 09/09/17 09/10/17 09/11/17 06:59 06:59 06:59 Intake Total 1080 Output Total 175 Balance 905 Result Diagrams: 09/04/17 04:04 09/04/17 04:04 Phys Exam - Physical Examination Constitutional: NAD HEENT: PERRLA, moist MMs, sclera anicteric Neck: no JVD, supple Respiratory: no wheezing, no rales, no rhonchi Cardiovascular: RRR, no significant murmur, no rub Gastrointestinal: soft, non-tender, no distention, positive bowel sounds Musculoskeletal: no edema, pulses present Neurological: non-focal, normal sensation, moves all 4 limbs Lymphatic: no nodes Psychiatric: normal affect, A&O x 3 Skin: no rash, normal turgor Dx/Plan (1) Volume overload Code(s): E87.70 - FLUID OVERLOAD, UNSPECIFIED Status: Acute Qualifiers: Hypervolemia type: unspecified Qualified Code(s): E87.70 - Fluid overload, unspecified (2) Acute on chronic combined systolic and diastolic CHF (congestive heart failure) Code(s): I50.43 - ACUTE ON CHRONIC COMBINED SYSTOLIC AND DIASTOLIC HRT FAIL Status: Acute (3) Acute respiratory failure with hypoxemia Code(s): J96.01 - ACUTE RESPIRATORY FAILURE WITH HYPOXIA Status: Acute (4) Anemia of renal disease Code(s): D63.1 - ANEMIA IN CHRONIC KIDNEY DISEASE Status: Chronic (5) DM type 2 (diabetes mellitus, type 2) Status: Chronic Qualifiers: (6) ESRD (end stage renal disease) on dialysis Code(s): N18.6 - END STAGE RENAL DISEASE; Z99.2 - DEPENDENCE ON RENAL DIALYSIS Status: Chronic (7) HTN (hypertension) Code(s): I10 - ESSENTIAL (PRIMARY) HYPERTENSION Status: Chronic (8) Hyperuricemia Code(s): E79.0 - HYPERURICEMIA W/O SIGNS OF INFLAM ARTHRIT AND TOPHACEOUS DIS Status: Chronic (9) Noncompliance with medication regimen Code(s): Z91.14 - PATIENT'S OTHER NONCOMPLIANCE WITH MEDICATION REGIMEN Status : Chronic (10) Secondary hyperparathyroidism of renal origin Code(s): N25.81 - SECONDARY HYPERPARATHYROIDISM OF RENAL ORIGIN Status: Chronic (11) Vitamin D deficiency Code(s): E55.9 - VITAMIN D DEFICIENCY, UNSPECIFIED Status: Chronic (12) Hyperkalemia Code(s): E87.5 - HYPERKALEMIA Status: Resolved - 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 * medication reviewed as below * symptomatic treatment * await plan for outpt HD. Review of Systems - Review of Systems ENT: negative: Ear Pain, Ear Discharge, Nose Pain, Nose Discharge, Nose Congestion, Mouth Pain, Mouth Swelling, Throat Pain, Throat Swelling, Other Respiratory: negative: Cough, Dry, Shortness of Breath, Hemoptysis, SOB with Excertion, Pleuritic Pain, Sputum, Wheezing Cardiovascular: negative: chest pain, palpitations, orthopnea, paroxysmal nocturnal dyspnea, edema, light headedness, other Gastrointestinal: negative: Nausea, Vomiting, Abdominal Pain, Diarrhea, Constipation, Melena, Hematochezia, Other Genitourinary: negative: Dysuria, Frequency, Incontinence, Hematuria, Retention , Other Musculoskeletal: negative: Neck Pain, Shoulder Pain, Arm Pain, Back Pain, Hand Pain, Leg Pain, Foot Pain, Other Skin: negative: Rash, Lesions, Reji, Bruising, Other - Medications/Allergies Allergies/Adverse Reactions: Allergies Allergy/AdvReac Type Severity Reaction Status Date / Time No Known Drug Allergies Allergy Verified 08/03/17 22:29 Medications: Current Medications Acetaminophen (Tylenol) 650 mg PO Q4H PRN PRN Reason: Headache/Fever or Pain Hydrocodone Bitart/Acetaminophen ([place] 5/325) 1 tab PO Q4H PRN PRN Reason: Moderate Pain (4-6) Al Hydroxide/Mg Hydroxide (Maalox) 30 ml PO Q6H PRN PRN Reason: Heartburn or Indigestion Allopurinol (Zyloprim) 100 mg PO DAILY ON LICENSE OF [facility] Last Admin: 09/10/17 10:53 Dose: Not Given Artificial Tears (Tears Naturale) 0 drop EA EYE PRN PRN PRN Reason: Dry Eyes Aspirin (Aspirin Chewable) 81 mg PO DAILY ON LICENSE OF [facility] Last Admin: 09/10/17 10:53 Dose: Not Given Calcitriol (Rocaltrol) 0.25 mcg PO DAILY ON LICENSE OF [facility] Last Admin: 09/10/17 09:26 Dose: Not Given Calcium Acetate (Phoslo) 1,334 mg PO TID-[facility] Last Admin: 09/10/17 09:25 Dose: Not Given Calcium Carbonate (Tums) 1,000 mg PO BID ON LICENSE OF [facility] Last Admin: 09/10/17 09:26 Dose: Not Given Carvedil[facility] ([facility]g) [facility] Last Admin: 09/10/17 09:25 Dose: Not Given Epoetin Branden (Procrit) 10,000 units IVP MoWeFr@0900 ON LICENSE OF [facility] Last Admin: 09/10/17 09:44 Dose: 10,000 units Famotidine (Pepcid) 20 mg PO DAILY ON LICENSE OF [facility] Last Admin: 09/10/17 09:26 Dose: Not Given Ferrous Sulfate (Feosol) 325 mg PO QAM-[facility] Last Admin: 09/10/17 09:25 Dose: Not Given Guaifenesin (Robitussin Sf) 200 mg PO Q4H PRN PRN Reason: Cough Heparin Sodium (Porcine) (Heparin) 5,000 units SC BID ON LICENSE OF [facility] Last Admin: 09/10/17 10:53 Dose: Not Given Hydralazine HCl (Apresoline) 10 mg SLOW IVP Q4H PRN PRN Reason: Systolic BP > 180 Hydralazine HCl (Apresoline) 25 mg PO QID ON LICENSE OF [facility] Last Admin: 09/10/17 10:53 Dose: Not Given Loperamide HCl (Imodium) 2 mg PO PRN PRN PRN Reason: Diarrhea/Loose Stools Loratadine (Claritin) 10 mg PO DAILYPRN PRN PRN Reason: Sinus Symptoms Magnesium Hydroxide (Milk Of Magnesium) 30 ml PO DAILYPRN PRN PRN Reason: Constipation Mineral Oil/White Petrolatum (Eucerin Cream) 0 gm TOP BIDPRN PRN PRN Reason: Dry Skin Nifedipine (Procardia Xl) 30 mg PO DAILY ON LICENSE OF [facility] Last Admin: 09/10/17 10:53 Dose: Not Given Nitroglycerin (Nitrostat) 0.4 mg SL Q5MIN PRN PRN Reason: Chest Pain Nitroglycerin (Nitro-Bid 2% Ointment) 0.5 inch TOP Q8HR ON LICENSE OF [facility] Last Admin: 09/10/17 05:57 Dose: 0.5 inch Ondansetron HCl (Zofran Odt) 4 mg PO Q6H PRN PRN Reason: Nausea/Vomiting Ondansetron HCl (Zofran) 4 mg IVP Q6H PRN PRN Reason: Nausea/Vomiting Phenol (Chloraseptic [place] 180 Ml Bot) 0 ml PO PRN PRN PRN Reason: Sore Throat Pravastatin Sodium (Pravachol) 20 mg PO HS ON LICENSE OF [facility] Last Admin: 09/09/17 21:21 Dose: 20 mg Senna (Senokot) 2 tab PO HSPRN PRN PRN Reason: Constipation Sodium Chloride ([place] Nasal [place] 0.65%) 0 ml EA NARE QIDPRN PRN PRN Reason: Nasal Congestion Sodium Chloride (Flush - Normal Saline) 10 ml IVF PRN PRN PRN Reason: Saline Flush Last Admin: 09/06/17 09:26 Dose: 10 ml Zolpidem Tartrate (Ambien) 5 mg PO HSPRN PRN PRN Reason: Insomnia
[2017-09-10] MEDS: Pravastatin Sodium 20 MG TAB PO SCH (21:12)
[2017-09-11] MEDS: Nitroglycerin 2% Ointment 1 INCH/1 GM Packet TOP SCH ×3 (06:07→21:35)
[2017-09-11 06:38] LABS: #Eosinphils 0.5 thou/uL (0.0-0.7); #Lymphocytes 1.1 thou/uL (1.20-3.40); #Monocytes 0.5 thou/uL (0.11-0.59); #Neutrophils 2.3 thou/uL (1.40-6.50); %Basophils 0.3 % (0.0-1.0); %Neutrophils 52.7 % (42.0-75.0); Hemoglobin 9.8 g/dL (14.0-18.0); Mean Corpuscular HGB CONC 34.7 g/dL (32.0-36.0); Mean Corpuscular Volume 83.5 fl (80.0-94.0); Mean Platelet Volume 8.7 fL (7.4-10.4); Platelet Count 177 thou/uL (130-400); RBC Distribution Width 12.9 % (11.5-14.5); Red Blood Cell (RBC) Count 3.37 mill/uL (4.70-6.10); White Blood Cell (WBC) Count 4.5 thou/uL (4.8-10.8)
[2017-09-11 06:44] LABS: Anion Gap 15 mmol/L (10-20); BUN (Urea Nitrogen) 26 mg/dL (8.4-25.7); Calc. Creatinine Clearance 15 mL/min (70-130); Calcium 9.2 mg/dL (7.8-10.44); Carbon Dioxide 27 mmol/L (22-29); Chloride 95 mmol/L (98-107); Estimated GFR-MDRD 11; Glucose 116 mg/dL (70-105); Potassium 3.5 mmol/L (3.5-5.1); Sodium 133 mmol/L (136-145)
[2017-09-11] MEDS: Carvedilol 6.25 MG TAB PO SCH ×2 (09:03→17:23)
[2017-09-11] MEDS: Calcium Acetate 667 MG CAP PO SCH ×3 (09:05→17:24)
[2017-09-11] MEDS: Ferrous Sulfate 325 MG TAB PO SCH (09:06)
[2017-09-11] MEDS: Allopurinol 100 MG TAB PO SCH (09:06)
[2017-09-11] MEDS: Calcium Carbonate 500 MG ChewTAB PO SCH ×2 (09:07→21:17)
[2017-09-11] MEDS: Calcitriol 0.25 MCG CAP PO SCH (09:07)
[2017-09-11] MEDS: NIFEdipine XL 30 MG TAB PO SCH (09:08)
[2017-09-11] MEDS: hydrALAZINE 25 MG TAB PO SCH ×4 (09:08→21:17)
[2017-09-11] MEDS: Famotidine 20 MG TAB PO SCH (09:08)
[2017-09-11] MEDS: Heparin 5,000 UNITS/ML VIAL SC SCH ×2 (09:09→21:17)
--- NOTE | 2017-09-11 10:02 | PDOC.PN ---
- Subjective Encounter Start Date: 09/11/17 Encounter Start Time: 06:40 Patient seen and examined. No new complaints. No overnight events - Objective Resuscitation Status: Resuscitation Status FULL:Full Resuscitation MAR Reviewed: Yes Vital Signs & Weight: Vital Signs (12 hours) Temp Pulse Resp BP BP Pulse Ox 09/11/17 09:08 67 09/11/17 09:03 155/71 H 09/11/17 07:37 98.1 F 67 20 137/63 97 09/11/17 04:00 98.0 F 66 18 123/58 L 09/11/17 00:00 98.1 F 67 20 159/72 H Weight Weight 155 lb 1.6 oz I&O: 09/10/17 09/11/17 09/12/17 06:59 06:59 06:59 Intake Total 1080 200 Output Total 175 150 Balance 905 50 Result Diagrams: 09/11/17 05:56 09/11/17 05:56 Phys Exam - Physical Examination Constitutional: NAD HEENT: PERRLA, moist MMs, sclera anicteric Neck: no JVD, supple Respiratory: no wheezing, no rales, no rhonchi Cardiovascular: RRR, no significant murmur, no rub Gastrointestinal: soft, non-tender, no distention, positive bowel sounds Musculoskeletal: no edema, pulses present Neurological: non-focal, normal sensation, moves all 4 limbs Psychiatric: normal affect, A&O x 3 Skin: no rash, normal turgor Dx/Plan (1) Volume overload Code(s): E87.70 - FLUID OVERLOAD, UNSPECIFIED Status: Acute Qualifiers: Hypervolemia type: unspecified Qualified Code(s): E87.70 - Fluid overload, unspecified (2) Acute on chronic combined systolic and diastolic CHF (congestive heart failure) Code(s): I50.43 - ACUTE ON CHRONIC COMBINED SYSTOLIC AND DIASTOLIC HRT FAIL Status: Acute (3) Acute respiratory failure with hypoxemia Code(s): J96.01 - ACUTE RESPIRATORY FAILURE WITH HYPOXIA Status: Acute (4) Anemia of renal disease Code(s): D63.1 - ANEMIA IN CHRONIC KIDNEY DISEASE Status: Chronic (5) DM type 2 (diabetes mellitus, type 2) Status: Chronic Qualifiers: (6) ESRD (end stage renal disease) on dialysis Code(s): N18.6 - END STAGE RENAL DISEASE; Z99.2 - DEPENDENCE ON RENAL DIALYSIS Status: Chronic (7) HTN (hypertension) Code(s): I10 - ESSENTIAL (PRIMARY) HYPERTENSION Status: Chronic (8) Hyperuricemia Code(s): E79.0 - HYPERURICEMIA W/O SIGNS OF INFLAM ARTHRIT AND TOPHACEOUS DIS Status: Chronic (9) Noncompliance with medication regimen Code(s): Z91.14 - PATIENT'S OTHER NONCOMPLIANCE WITH MEDICATION REGIMEN Status : Chronic (10) Secondary hyperparathyroidism of renal origin Code(s): N25.81 - SECONDARY HYPERPARATHYROIDISM OF RENAL ORIGIN Status: Chronic (11) Vitamin D deficiency Code(s): E55.9 - VITAMIN D DEFICIENCY, UNSPECIFIED Status: Chronic (12) Hyperkalemia Code(s): E87.5 - HYPERKALEMIA Status: Resolved - 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, oncology social work * once outpt HD arranged, will DC * medication reviewed as below * medically stable for discharge * see discharge summery * outpt follow up. Review of Systems - Review of Systems ENT: negative: Ear Pain, Ear Discharge, Nose Pain, Nose Discharge, Nose Congestion, Mouth Pain, Mouth Swelling, Throat Pain, Throat Swelling, Other Respiratory: negative: Cough, Dry, Shortness of Breath, Hemoptysis, SOB with Excertion, Pleuritic Pain, Sputum, Wheezing Cardiovascular: negative: chest pain, palpitations, orthopnea, paroxysmal nocturnal dyspnea, edema, light headedness, other Gastrointestinal: negative: Nausea, Vomiting, Abdominal Pain, Diarrhea, Constipation, Melena, Hematochezia, Other Genitourinary: negative: Dysuria, Frequency, Incontinence, Hematuria, Retention , Other Musculoskeletal: negative: Neck Pain, Shoulder Pain, Arm Pain, Back Pain, Hand Pain, Leg Pain, Foot Pain, Other Skin: negative: Rash, Lesions, Reji, Bruising, Other - Medications/Allergies Allergies/Adverse Reactions: Allergies Allergy/AdvReac Type Severity Reaction Status Date / Time No Known Drug Allergies Allergy Verified 08/03/17 22:29 Medications: Current Medications Acetaminophen (Tylenol) 650 mg PO Q4H PRN PRN Reason: Headache/Fever or Pain Hydrocodone Bitart/Acetaminophen ([place] 5/325) 1 tab PO Q4H PRN PRN Reason: Moderate Pain (4-6) Al Hydroxide/Mg Hydroxide (Maalox) 30 ml PO Q6H PRN PRN Reason: Heartburn or Indigestion Allopurinol (Zyloprim) 100 mg PO DAILY [facility] Last Admin: 09/11/17 09:06 Dose: 100 mg Artificial Tears (Tears Naturale) 0 drop EA EYE PRN PRN PRN Reason: Dry Eyes Aspirin (Aspirin Chewable) 81 mg PO DAILY [facility] Last Admin: 09/11/17 09:07 Dose: 81 mg Calcitriol (Rocaltrol) 0.25 mcg PO DAILY [facility] Last Admin: 09/11/17 09:07 Dose: 0.25 mcg Calcium Acetate (Phoslo) 1,[facility] Last Admin: 09/11/17 09:05 Dose: 1,334 mg Calcium Carbonate (Tums) 1,000 mg PO BID [facility] Last Admin: 09/11/17 09:07 Dose: 1,000 mg Carvedilol (Coreg) 12.[facility] Last Admin: 09/11/17 09:03 Dose: 12.5 mg Epoetin Branden (Procrit) 10,000 units IVP MoWeFr@0900 [facility] Last Admin: 09/10/17 09:44 Dose: 10,000 units Famotidine (Pepcid) 20 mg PO DAILY [facility] Last Admin: 09/11/17 09:08 Dose: 20 mg Ferrous Sulfate (Feosol) 325 mg PO QAM-[facility] Last Admin: 09/11/17 09:06 Dose: 325 mg Guaifenesin (Robitussin Sf) 200 mg PO Q4H PRN PRN Reason: Cough Heparin Sodium (Porcine) (Heparin) 5,000 units SC BID [facility] Last Admin: 09/11/17 09:09 Dose: 5,000 units Hydralazine HCl (Apresoline) 10 mg SLOW IVP Q4H PRN PRN Reason: Systolic BP > 180 Hydralazine HCl (Apresoline) 25 mg PO QID [facility] Last Admin: 09/11/17 09:08 Dose: 25 mg Loperamide HCl (Imodium) 2 mg PO PRN PRN PRN Reason: Diarrhea/Loose Stools Loratadine (Claritin) 10 mg PO DAILYPRN PRN PRN Reason: Sinus Symptoms Magnesium Hydroxide (Milk Of Magnesium) 30 ml PO DAILYPRN PRN PRN Reason: Constipation Mineral Oil/White Petrolatum (Eucerin Cream) 0 gm TOP BIDPRN PRN PRN Reason: Dry Skin Nifedipine (Procardia Xl) 30 mg PO DAILY [facility] Last Admin: 09/11/17 09:08 Dose: 30 mg Nitroglycerin (Nitrostat) 0.4 mg SL Q5MIN PRN PRN Reason: Chest Pain Nitroglycerin (Nitro-Bid 2% Ointment) 0.5 inch TOP Q8HR [facility] Last Admin: 09/11/17 06:07 Dose: 0.5 inch Ondansetron HCl (Zofran Odt) 4 mg PO Q6H PRN PRN Reason: Nausea/Vomiting Ondansetron HCl (Zofran) 4 mg IVP Q6H PRN PRN Reason: Nausea/Vomiting Phenol (Chloraseptic [place] 180 Ml Bot) 0 ml PO PRN PRN PRN Reason: Sore Throat Pravastatin Sodium (Pravachol) 20 mg PO [facility] Last Admin: 09/10/17 21:12 Dose: 20 mg Senna (Senokot) 2 tab PO HSPRN PRN PRN Reason: Constipation Sodium Chloride ([place] Nasal [place] 0.65%) 0 ml EA NARE QIDPRN PRN PRN Reason: Nasal Congestion Sodium Chloride (Flush - Normal Saline) 10 ml IVF PRN PRN PRN Reason: Saline Flush Last Admin: 09/06/17 09:26 Dose: 10 ml Zolpidem Tartrate (Ambien) 5 mg PO HSPRN PRN PRN Reason: Insomnia
--- NOTE | 2017-09-11 11:24 | DIS ---
DATE OF ADMISSION: 09/03/2017 DATE OF DISCHARGE: 09/11/2017 PRIMARY CARE PHYSICIAN: [facility] [employer] DISCHARGE DISPOSITION: Home. PRIMARY DISCHARGE DIAGNOSES: 1. End-stage renal disease, started hemodialysis. 2. Acute on chronic combined systolic and diastolic congestive heart failure. 3. Acute respiratory failure with hypoxia, resolved. 4. Volume overload. 5. Hyperkalemia resolved. SECONDARY DISCHARGE DIAGNOSES: Vitamin D deficiency; secondary hyperparathyroidism of renal origin a nd noncompliance with medical treatment; hyperuricemia; hypertension; end-stage renal disease; diabet es, type 2; anemia of renal disease; chronic systolic and diastolic congestive heart failure. PRIMARY PROCEDURES/OPERATIONS: Maintenance hemodialysis while in hospital. RADIOLOGICAL INVESTIGATION: Chest x-ray. SIGNIFICANT LABORATORIES: Hemoglobin 9.8, INR 1.1, creatinine 5.30, potassium 3.5. Cardiac enzymes negative. LFTs normal. Hepatitis profile negative, influenza negative. DISCHARGE MEDICATIONS: Allopurinol 100 mg p.o. daily, amlodipine 5 mg p.o. daily, aspirin 81 mg p.o. daily, calcitriol 0.25 mcg p.o. daily, PhosLo 667 mg 2 capsules t.i.d., Tums 1000 mg p.o. b.i.d., Co reg 12.5 mg p.o. b.i.d., ferrous sulfate 325 mg p.o. daily, hydralazine 25 mg p.o. q.i.d., Imdur 30 m g p.o. daily, Procardia-XL 30 mg p.o. daily, pravastatin 20 mg p.o. at bedtime. CONTRAINDICATIONS: Patient is not on SANTIAGO inhibitor and ARB, because of hyperkalemia risk from renal failure and that is why the patient is not on SANTIAGO inhibitor and ARB, but he is on hydralazine mononit rate regimen. INPATIENT CONSULTANTS: Dr. Stephen was following while in hospital for maintenance hemodialysis. TEST RESULTS PENDING ON DISCHARGE: None. ALLERGIES: No known drug allergies. DISCHARGE PLAN: Post hospital, the patient will follow up with primary care physician on 09/12/2017 at 01:00 p.m. HOSPITAL COURSE: A 61-year-old male, who was recently converted to end-stage renal disease and he wa s started on hemodialysis. During previous year, he was not having any insurance and that is why he was not able to get outpatient hemodialysis. This year, he purchased insurance, and on 09/03/2017, estephanie warren was admitted. At that time, the patient was having acute hypoxic respiratory failure, volume overl oad, hyperkalemia. He required BiPAP. He required ICU admission. He required emergent dialysis. W ith emergent dialysis, his respiratory failure improved, hyperkalemia resolved, and he was completely stable. Subsequently, the patient was getting maintenance hemodialysis while in hospital. This pat ient was requiring outpatient dialysis arrangement and that is why we consulted director of casework department, and our director of casework department has arranged outpatient hemodialysis for him. He will follow up with primary care jose weems and he will resume his outpatient regular maintenance dialysis. The patient is seen and examined at bedside today. Please see my progress note from today for furthe r details. Overall, the patient is medically stable for discharge today.
--- NOTE | 2017-09-11 13:36 | PRG ---
DATE OF SERVICE: 09/11/2016 SUBJECTIVE: Patient was seen and examined at bedside and overnight events noted. Patient denies any shortness of breath or chest pain or palpitation. No history of nausea or vomiting or diarrhea or f ever or chills or cramps. OBJECTIVE: GENERAL: This is a well-built male in no apparent distress. VITAL SIGNS: Temperature 98.1, pulse 67, respiratory rate 17, blood pressure 137/63. HEENT: Atraumatic, normocephalic. Oral mucosa is moist. NECK: Supple. CARDIOVASCULAR: S1, S2 heard. Rate and rhythm regular. RESPIRATORY: Clear to auscultation. GASTROINTESTINAL: Abdomen is soft. MUSCULOSKELETAL: No tenderness. No edema. DERMATOLOGIC: No skin rash. NEUROLOGIC: Alert and awake and oriented x3. No focal neurologic deficits. Moving all the extremiti es. PSYCHIATRIC: Mood and affect normal. LABORATORY DATA: Potassium is 3.5, BUN IS 26, and creatinine is 5.3. ASSESSMENT AND PLAN: 1. End-stage renal disease, continue on hemodialysis. Follow up with case management for outpatient placement. 2. Edema, controlled. 3. Hypertension. 4. Anemia. Continue JULIETH. 5. Hypertension, stable. 6. Plan is to control dialysis as tolerated.
[2017-09-11] MEDS: Pravastatin Sodium 20 MG TAB PO SCH (21:17)
[2017-09-12] MEDS: Nitroglycerin 2% Ointment 1 INCH/1 GM Packet TOP SCH ×3 (05:30→22:09)
[2017-09-12] MEDS: Heparin 5,000 UNITS/ML VIAL SC SCH ×2 (08:50→21:02)
[2017-09-12] MEDS: Allopurinol 100 MG TAB PO SCH (08:51)
[2017-09-12] MEDS: Calcium Acetate 667 MG CAP PO SCH ×3 (08:51→17:49)
[2017-09-12] MEDS: Calcium Carbonate 500 MG ChewTAB PO SCH ×2 (08:51→21:01)
[2017-09-12] MEDS: hydrALAZINE 25 MG TAB PO SCH ×4 (08:52→21:01)
[2017-09-12] MEDS: Calcitriol 0.25 MCG CAP PO SCH (08:52)
[2017-09-12] MEDS: Famotidine 20 MG TAB PO SCH (08:52)
[2017-09-12] MEDS: NIFEdipine XL 30 MG TAB PO SCH (08:52)
[2017-09-12] MEDS: Ferrous Sulfate 325 MG TAB PO SCH (08:52)
[2017-09-12] MEDS: Carvedilol 6.25 MG TAB PO SCH ×2 (08:52→17:51)
[2017-09-12] MEDS ORDERED: Heparin 10,000 UNITS/ 10 ML VIAL ONE (09:19)
--- NOTE | 2017-09-12 09:22 | PDOC.PN ---
- Subjective Encounter Start Date: 09/12/17 Encounter Start Time: 09:20 Mr. Zepeda does not have any complaints this morning. He was seen in follow-up of new onset ESRD. - Objective Resuscitation Status: Resuscitation Status FULL:Full Resuscitation MAR Reviewed: Yes Vital Signs & Weight: Vital Signs (12 hours) Temp Pulse Resp BP BP Pulse Ox 09/12/17 08:52 67 127/62 09/12/17 08:00 98.1 F 67 20 127/62 09/12/17 05:28 98.5 F 68 18 133/66 97 09/11/17 23:40 98.5 F 68 16 149/71 H 96 Weight Weight 155 lb 1.6 oz I&O: 09/11/17 09/12/17 09/13/17 06:59 06:59 06:59 Intake Total 200 500 Output Total 150 500 Balance 50 0 Result Diagrams: 09/11/17 05:56 09/11/17 05:56 Phys Exam - Physical Examination HEENT: PERRLA Respiratory: no wheezing, no rales, no rhonchi, clear to auscultation bilateral Cardiovascular: RRR, no significant murmur, no rub Gastrointestinal: soft, non-tender, positive bowel sounds Musculoskeletal: no edema Dx/Plan (1) DM type 2 (diabetes mellitus, type 2) Status: Chronic Qualifiers: (2) ESRD (end stage renal disease) on dialysis Code(s): N18.6 - END STAGE RENAL DISEASE; Z99.2 - DEPENDENCE ON RENAL DIALYSIS Status: Chronic (3) HTN (hypertension) Code(s): I10 - ESSENTIAL (PRIMARY) HYPERTENSION Status: Chronic - Plan * ESRD- patient is to be dialyzed today. He is awaiting outpatient dialysis * HTN- blood pressure is stable * DM- blood glucose is stable * Home once Outpatient dialysis is arranged.
[2017-09-12] MEDS: Epoetin (ESRD) 10,000 UNITS/ML VIAL IVP SCH (14:49)
[2017-09-12] MEDS: Pravastatin Sodium 20 MG TAB PO SCH (21:02)
--- NOTE | 2017-09-12 21:28 | PRG ---
DATE OF SERVICE: 09/12/2017 SUBJECTIVE: Patient was seen and examined at bedside and overnight events noted. Patient denies any shortness of breath or chest pain or palpitation. No history of nausea or vomitin g or diarrhea or fever or chills or cramps. OBJECTIVE: GENERAL: This is a well-built male, in no apparent distress. VITAL SIGNS: Temperature 98.3, pulse 64, respiratory rate 18, blood pressure 121/65. HEENT: Atraumatic, normocephalic. Oral mucosa is moist NECK: Supple. CARDIOVASCULAR: S1 and S2 heard. Rate and rhythm regular. RESPIRATORY: Clear to auscultation. GASTROINTESTINAL: Abdomen is soft. MUSCULOSKELETAL: No tenderness. No edema. DERMATOLOGIC: No skin rash. NEUROLOGIC: Alert and awake and oriented X3, No focal neurologic deficits. Moving all the extremitie s. PSYCHIATRIC: Mood and affect normal. LABORATORY DATA: Potassium 3.5, BUN is , creatinine 5.5. ASSESSMENT: 1. End-stage renal disease, continue on hemodialysis. 2. Edema. 3. Hypertension. 4. Anemia. Plan is to continue on dialysis. Follow with case management for outpatient placement.
[2017-09-13] MEDS: Nitroglycerin 2% Ointment 1 INCH/1 GM Packet TOP SCH (05:58)
[2017-09-13] MEDS: Calcium Acetate 667 MG CAP PO SCH ×3 (08:34→17:21)
[2017-09-13] MEDS: Carvedilol 6.25 MG TAB PO SCH ×2 (08:36→17:20)
[2017-09-13] MEDS: Ferrous Sulfate 325 MG TAB PO SCH (08:37)
[2017-09-13] MEDS: Allopurinol 100 MG TAB PO SCH (08:43)
[2017-09-13] MEDS: Calcitriol 0.25 MCG CAP PO SCH (08:43)
[2017-09-13] MEDS: hydrALAZINE 25 MG TAB PO SCH ×3 (08:44→22:54)
[2017-09-13] MEDS: Calcium Carbonate 500 MG ChewTAB PO SCH ×2 (08:44→22:53)
[2017-09-13] MEDS: Famotidine 20 MG TAB PO SCH (08:44)
[2017-09-13] MEDS: NIFEdipine XL 30 MG TAB PO SCH (08:45)
[2017-09-13] MEDS: Heparin 5,000 UNITS/ML VIAL SC SCH ×2 (08:46→22:55)
--- NOTE | 2017-09-13 10:38 | PDOC.PN ---
- Subjective Encounter Start Date: 09/13/17 Encounter Start Time: 09:50 Subjective: no sob, feels good -: is amb in room - Objective Resuscitation Status: Resuscitation Status FULL:Full Resuscitation MAR Reviewed: Yes Vital Signs & Weight: Vital Signs (12 hours) Temp Pulse Resp BP BP Pulse Ox 09/13/17 08:46 98.9 F 68 18 126/68 97 09/13/17 08:45 65 09/13/17 08:44 65 09/13/17 08:36 116/58 L 09/13/17 07:54 98.0 F 65 16 09/13/17 04:07 98.0 F 65 16 134/66 09/13/17 00:22 98.9 F 66 16 103/56 L 96 Weight Weight 155 lb 1.6 oz I&O: 09/12/17 09/13/17 09/14/17 06:59 06:59 06:59 Intake Total 500 360 Output Total 500 150 Balance 0 210 Result Diagrams: 09/11/17 05:56 09/11/17 05:56 Phys Exam - Physical Examination HEENT: PERRLA, moist MMs Neck: no JVD, supple Respiratory: no wheezing, no rales Cardiovascular: RRR, no significant murmur Gastrointestinal: soft, non-tender, positive bowel sounds Musculoskeletal: no edema, pulses present left UE fistula+ Neurological: non-focal, moves all 4 limbs Psychiatric: normal affect, A&O x 3 Dx/Plan (1) Anemia of renal disease Code(s): D63.1 - ANEMIA IN CHRONIC KIDNEY DISEASE Status: Chronic (2) DM type 2 (diabetes mellitus, type 2) Status: Chronic Qualifiers: Diabetes mellitus complication status: with kidney complications Diabetes mellitus complication detail: with chronic kidney disease Diabetes mellitus prison insulin use: without ad terminal makeup operator use Chronic kidney disease stage: on chronic dialysis Qualified Code(s): E11.22 - Type 2 diabetes mellitus with diabetic chronic kidney disease; N18.6 - End stage renal disease; N18.6 - End stage renal disease; N18.6 - End stage renal disease; N18.6 - End stage renal disease; Z99.2 - Dependence on renal dialysis; Z99.2 - Dependence on renal dialysis; Z99.2 - Dependence on renal dialysis; Z99.2 - Dependence on renal dialysis (3) ESRD (end stage renal disease) on dialysis Code(s): N18.6 - END STAGE RENAL DISEASE; Z99.2 - DEPENDENCE ON RENAL DIALYSIS Status: Chronic (4) HTN (hypertension) Code(s): I10 - ESSENTIAL (PRIMARY) HYPERTENSION Status: Chronic Qualifiers: Hypertension type: essential hypertension Qualified Code(s): I10 - Essential (primary) hypertension - Plan may dc anytime if outpt HD is set up -: hemostable, dc nitropaste if he is still on it -: to amb in hallway -: oral iron, coreg, hydralazine tid and procardia -: dm for diet control, htn is well controlled * . Review of Systems - Medications/Allergies Allergies/Adverse Reactions: Allergies Allergy/AdvReac Type Severity Reaction Status Date / Time No Known Drug Allergies Allergy Verified 08/03/17 22:29 Medications: Current Medications Acetaminophen (Tylenol) 650 mg PO Q4H PRN PRN Reason: Headache/Fever or Pain Hydrocodone Bitart/Acetaminophen (Kevin 5/325) 1 tab PO Q4H PRN PRN Reason: Moderate Pain (4-6) Al Hydroxide/Mg Hydroxide (Maalox) 30 ml PO Q6H PRN PRN Reason: Heartburn or Indigestion Allopurinol (Zyloprim) 100 mg PO DAILY [facility] Last Admin: 09/13/17 08:43 Dose: 100 mg Artificial Tears (Tears Naturale) 0 drop EA EYE PRN PRN PRN Reason: Dry Eyes Aspirin (Aspirin Chewable) 81 mg PO DAILY [facility] Last Admin: 09/13/17 08:43 Dose: 81 mg Calcitriol (Rocaltrol) 0.25 mcg PO DAILY [facility] Last Admin: 09/13/17 08:43 Dose: 0.25 mcg Calcium Acetate (Phoslo) 1,334 mg PO TID-[facility] Last Admin: 09/13/17 08:34 Dose: 1,334 mg Calcium Carbonate (Tums) 1,000 mg PO BID [facility] Last Admin: 09/13/17 08:44 Dose: 1,000 mg Carvedilol (Coreg) 12.5 mg PO BID-[facility] Last Admin: 09/13/17 08:36 Dose: 12.5 mg Epoetin Branden (Procrit) 10,000 units IVP MoWeFr@0900 [facility] Last Admin: 09/12/17 14:49 Dose: 10,000 units Famotidine (Pepcid) 20 mg PO DAILY [facility] Last Admin: 09/13/17 08:44 Dose: 20 mg Ferrous Sulfate (Feosol) 325 mg PO QAM-[facility] Last Admin: 09/13/17 08:37 Dose: 325 mg Guaifenesin (Robitussin Sf) 200 mg PO Q4H PRN PRN Reason: Cough Heparin Sodium (Porcine) (Heparin) 5,000 units SC BID [facility] Last Admin: 09/13/17 08:46 Dose: Not Given Hydralazine HCl (Apresoline) 10 mg SLOW IVP Q4H PRN PRN Reason: Systolic BP > 180 Hydralazine HCl (Apresoline) 25 mg PO QID [facility] Last Admin: 09/13/17 08:44 Dose: 25 mg Loperamide HCl (Imodium) 2 mg PO PRN PRN PRN Reason: Diarrhea/Loose Stools Loratadine (Claritin) 10 mg PO DAILYPRN PRN PRN Reason: Sinus Symptoms Magnesium Hydroxide (Milk Of Magnesium) 30 ml PO DAILYPRN PRN PRN Reason: Constipation Mineral Oil/White Petrolatum (Eucerin Cream) 0 gm TOP BIDPRN PRN PRN Reason: Dry Skin Nifedipine (Procardia Xl) 30 mg PO DAILY [facility] Last Admin: 09/13/17 08:45 Dose: 30 mg Nitroglycerin (Nitrostat) 0.4 mg SL Q5MIN PRN PRN Reason: Chest Pain Nitroglycerin (Nitro-Bid 2% Ointment) 0.5 inch TOP Q8HR [facility] Last Admin: 09/13/17 05:58 Dose: 0.5 inch Ondansetron HCl (Zofran Odt) 4 mg PO Q6H PRN PRN Reason: Nausea/Vomiting Ondansetron HCl (Zofran) 4 mg IVP Q6H PRN PRN Reason: Nausea/Vomiting Phenol (Chloraseptic [place] 180 Ml Bot) 0 ml PO PRN PRN PRN Reason: Sore Throat Pravastatin Sodium (Pravachol) 20 mg PO HS [facility] Last Admin: 09/12/17 21:02 Dose: 20 mg Senna (Senokot) 2 tab PO HSPRN PRN PRN Reason: Constipation Sodium Chloride ([place] Nasal [place] 0.65%) 0 ml EA NARE QIDPRN PRN PRN Reason: Nasal Congestion Sodium Chloride (Flush - Normal Saline) 10 ml IVF PRN PRN PRN Reason: Saline Flush Last Admin: 09/12/17 08:53 Dose: 10 ml Zolpidem Tartrate (Ambien) 5 mg PO HSPRN PRN PRN Reason: Insomnia
--- NOTE | 2017-09-13 18:42 | PRG ---
DATE OF SERVICE: 09/13/2016 SUBJECTIVE: Patient was seen and examined at bedside and overnight events noted. Patient denies any shortness of breath or chest pain or palpitation. No history of nausea or vomiting or diarrhea or f ever or chills or cramps. OBJECTIVE: GENERAL: This is a well-built male in no apparent distress. VITAL SIGNS: Temperature 98.3, pulse 62, respiratory rate 18, blood pressure 139/60. HEENT: Atraumatic, normocephalic. Oral mucosa is moist. NECK: Supple. CARDIOVASCULAR: S1, S2 heard. Rate and rhythm regular. RESPIRATORY: Clear to auscultation. GASTROINTESTINAL: Abdomen is soft. MUSCULOSKELETAL: No tenderness. No edema. DERMATOLOGIC: No skin rash. NEUROLOGIC: Alert and awake and oriented x3. No focal neurologic deficits. Moving all the extremiti es. PSYCHIATRIC: Mood and affect normal. LABORATORY DATA: Potassium is 3.5, BUN is 26 from yesterday. ASSESSMENT AND PLAN: 1. End-stage renal disease, continue on hemodialysis 2. Hypertension, stable. 3. Edema, controlled. 4. Anemia. 5. Follow with case management for outpatient placement.
[2017-09-13] MEDS: Pravastatin Sodium 20 MG TAB PO SCH (22:54)
[2017-09-14] MEDS: Epoetin (ESRD) 10,000 UNITS/ML VIAL IVP SCH (10:07)
[2017-09-14] MEDS ORDERED: Heparin 1,000 UNITS/ML VIAL ONE (11:11)
[2017-09-14] MEDS: Heparin 5,000 UNITS/ML VIAL SC SCH ×2 (11:16→22:44)
[2017-09-14] MEDS: Calcitriol 0.25 MCG CAP PO SCH (11:17)
[2017-09-14] MEDS: Carvedilol 6.25 MG TAB PO SCH ×2 (11:17→17:39)
[2017-09-14] MEDS: Calcium Carbonate 500 MG ChewTAB PO SCH ×2 (11:17→22:44)
[2017-09-14] MEDS: Famotidine 20 MG TAB PO SCH (11:17)
[2017-09-14] MEDS: Calcium Acetate 667 MG CAP PO SCH ×3 (11:17→17:39)
[2017-09-14] MEDS: Ferrous Sulfate 325 MG TAB PO SCH (11:18)
[2017-09-14] MEDS: Allopurinol 100 MG TAB PO SCH (11:18)
[2017-09-14] MEDS: hydrALAZINE 25 MG TAB PO SCH ×3 (11:19→22:45)
[2017-09-14] MEDS: NIFEdipine XL 30 MG TAB PO SCH (12:12)
--- NOTE | 2017-09-14 12:21 | PDOC.PN ---
- Subjective Encounter Start Date: 09/14/17 Encounter Start Time: 08:45 Subjective: feels good - Objective Resuscitation Status: Resuscitation Status FULL:Full Resuscitation MAR Reviewed: Yes Vital Signs & Weight: Vital Signs (12 hours) Temp Pulse Resp BP BP Pulse Ox 09/14/17 12:12 120/60 09/14/17 11:19 120/60 09/14/17 11:17 120/60 09/14/17 11:15 97.9 F 66 18 09/14/17 04:45 97.9 F 66 18 130/63 98 Weight Weight 149 lb 4.8 oz I&O: 09/13/17 09/14/17 09/15/17 06:59 06:59 06:59 Intake Total 360 200 Output Total 150 Balance 210 200 Result Diagrams: 09/11/17 05:56 09/11/17 05:56 Phys Exam - Physical Examination HEENT: PERRLA, moist MMs Neck: no JVD, supple Respiratory: no wheezing, no rales Cardiovascular: RRR, no significant murmur Gastrointestinal: soft, non-tender, positive bowel sounds Musculoskeletal: no edema, pulses present Neurological: non-focal, moves all 4 limbs Psychiatric: A&O x 3 Dx/Plan (1) ESRD (end stage renal disease) on dialysis Code(s): N18.6 - END STAGE RENAL DISEASE; Z99.2 - DEPENDENCE ON RENAL DIALYSIS Status: Chronic (2) Anemia of renal disease Code(s): D63.1 - ANEMIA IN CHRONIC KIDNEY DISEASE Status: Chronic (3) DM type 2 (diabetes mellitus, type 2) Status: Chronic Qualifiers: Diabetes mellitus complication status: with kidney complications Diabetes mellitus complication detail: with chronic kidney disease 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 operator insulin use: without senior care use Chronic kidney disease stage: on chronic dialysis Qualified Code(s): E11.22 - Type 2 diabetes mellitus with diabetic chronic kidney disease; N18.6 - End stage renal disease; N18.6 - End stage renal disease; N18.6 - End stage renal disease; N18.6 - End stage renal disease; Z99.2 - Dependence on renal dialysis; Z99.2 - Dependence on renal dialysis; Z99.2 - Dependence on renal dialysis; Z99.2 - Dependence on renal dialysis (4) HTN (hypertension) Code(s): I10 - ESSENTIAL (PRIMARY) HYPERTENSION Status: Chronic Qualifiers: Hypertension type: essential hypertension Qualified Code(s): I10 - Essential (primary) hypertension - Plan is awaiting outpt HD chair -: may dc anytime if above is set up -: htn and dm are stable -: pt is amb on floor * . Review of Systems - Medications/Allergies Allergies/Adverse Reactions: Allergies Allergy/AdvReac Type Severity Reaction Status Date / Time No Known Drug Allergies Allergy Verified 08/03/17 22:29 Medications: Current Medications Acetaminophen (Tylenol) 650 mg PO Q4H PRN PRN Reason: Headache/Fever or Pain Al Hydroxide/Mg Hydroxide (Maalox) 30 ml PO Q6H PRN PRN Reason: Heartburn or Indigestion Allopurinol (Zyloprim) 100 mg PO DAILY [facility] Last Admin: 09/14/17 11:18 Dose: Not Given Artificial Tears (Tears Naturale) 0 drop EA EYE PRN PRN PRN Reason: Dry Eyes Aspirin (Aspirin Chewable) 81 mg PO DAILY [facility] Last Admin: 09/14/17 11:18 Dose: Not Given Calcitriol (Rocaltrol) 0.25 mcg PO DAILY [facility] Last Admin: 09/14/17 11:17 Dose: Not Given Calcium Acetate (Phoslo) 1,334 mg PO TID-[facility] Last Admin: 09/14/17 12:11 Dose: 1,334 mg Calcium Carbonate (Tums) 1,000 mg PO BID [facility] Last Admin: 09/14/17 11:17 Dose: Not Given Carvedilol (Coreg) 12.5 mg PO BID-[facility] Last Admin: 09/14/17 11:17 Dose: Not Given Epoetin Branden (Procrit) 10,000 units IVP MoWeFr@0900 [facility] Last Admin: 09/14/17 10:07 Dose: 10,000 units Famotidine (Pepcid) 20 mg PO DAILY [facility] Last Admin: 09/14/17 11:17 Dose: Not Given Ferrous Sulfate (Feosol) 325 mg PO QAM-[facility] Last Admin: 09/14/17 11:18 Dose: Not Given Guaifenesin (Robitussin Sf) 200 mg PO Q4H PRN PRN Reason: Cough Heparin Sodium (Porcine) (Heparin) 5,000 units SC BID [facility] Last Admin: 09/14/17 11:16 Dose: Not Given Hydralazine HCl (Apresoline) 10 mg SLOW IVP Q4H PRN PRN Reason: Systolic BP > 180 Hydralazine HCl (Apresoline) 25 mg PO TID [facility] Last Admin: 09/14/17 11:19 Dose: Not Given Loperamide HCl (Imodium) 2 mg PO PRN PRN PRN Reason: Diarrhea/Loose Stools Loratadine (Claritin) 10 mg PO DAILYPRN PRN PRN Reason: Sinus Symptoms Magnesium Hydroxide (Milk Of Magnesium) 30 ml PO DAILYPRN PRN PRN Reason: Constipation Mineral Oil/White Petrolatum (Eucerin Cream) 0 gm TOP BIDPRN PRN PRN Reason: Dry Skin Nifedipine (Procardia Xl) 30 mg PO DAILY [facility] Last Admin: 09/14/17 12:12 Dose: Not Given Nitroglycerin (Nitrostat) 0.4 mg SL Q5MIN PRN PRN Reason: Chest Pain Ondansetron HCl (Zofran Odt) 4 mg PO Q6H PRN PRN Reason: Nausea/Vomiting Ondansetron HCl (Zofran) 4 mg IVP Q6H PRN PRN Reason: Nausea/Vomiting Phenol (Chloraseptic [place] 180 Ml Bot) 0 ml PO PRN PRN PRN Reason: Sore Throat Pravastatin Sodium (Pravachol) 20 mg PO [facility] Last Admin: 09/13/17 22:54 Dose: 20 mg Senna (Senokot) 2 tab PO HSPRN PRN PRN Reason: Constipation Sodium Chloride ([place] Nasal [place] 0.65%) 0 ml EA NARE QIDPRN PRN PRN Reason: Nasal Congestion Sodium Chloride (Flush - Normal Saline) 10 ml IVF PRN PRN PRN Reason: Saline Flush Last Admin: 09/12/17 08:53 Dose: 10 ml Zolpidem Tartrate (Ambien) 5 mg PO HSPRN PRN PRN Reason: Insomnia
[2017-09-14 12:44] VITALS: BMI 27.3
--- NOTE | 2017-09-14 14:23 | PRG ---
DATE OF SERVICE: 09/14/2017 SUBJECTIVE: Patient was seen and examined at bedside and overnight events noted. Patient denies any shortness of breath or chest pain or palpitation. No history of nausea or vomiting or diarrhea or f ever or chills or cramps. OBJECTIVE: GENERAL: This is a well built male, dialysis. VITAL SIGNS: Temperature 97.9, pulse 62, respiratory 18, blood pressure 113/63. HEENT: Atraumatic, normocephalic. Oral mucosa is moist. NECK: Supple. CARDIOVASCULAR: S1, S2 heard. Rate and rhythm regular. RESPIRATORY: Clear to auscultation. GASTROINTESTINAL: Abdomen is soft. MUSCULOSKELETAL: No tenderness, no edema. DERMATOLOGIC: No skin rash. NEUROLOGIC: Alert and awake and oriented x3. No focal neurologic deficits. Moving all the extremit ies. PSYCHIATRIC: Mood and affect normal. LABORATORY DATA: No labs done today. ASSESSMENT AND PLAN: 1. End-stage renal disease, continue on hemodialysis Sunday, Sunday, and Sunday. 2. Hypertension. 3. Edema, controlled. 4. Anemia. 5. Follow up with case management for outpatient placement. We will continue dialysis as tolerated.
[2017-09-14] MEDS: Pravastatin Sodium 20 MG TAB PO SCH (22:45)
[2017-09-15] MEDS: Calcium Carbonate 500 MG ChewTAB PO SCH ×2 (08:43→22:09)
[2017-09-15] MEDS: NIFEdipine XL 30 MG TAB PO SCH (08:46)
[2017-09-15] MEDS: Calcium Acetate 667 MG CAP PO SCH ×3 (08:46→17:41)
[2017-09-15] MEDS: Calcitriol 0.25 MCG CAP PO SCH (08:46)
[2017-09-15] MEDS: hydrALAZINE 25 MG TAB PO SCH ×3 (08:46→22:09)
[2017-09-15] MEDS: Carvedilol 6.25 MG TAB PO SCH ×2 (08:46→17:41)
[2017-09-15] MEDS: Ferrous Sulfate 325 MG TAB PO SCH (08:46)
[2017-09-15] MEDS: Famotidine 20 MG TAB PO SCH (08:46)
[2017-09-15] MEDS: Allopurinol 100 MG TAB PO SCH (08:46)
[2017-09-15] MEDS: Heparin 5,000 UNITS/ML VIAL SC SCH ×2 (08:47→22:08)
--- NOTE | 2017-09-15 10:49 | PDOC.PN ---
- Subjective Encounter Start Date: 09/15/17 Encounter Start Time: 09:40 Subjective: no sob, is comfortable - Objective Resuscitation Status: Resuscitation Status FULL:Full Resuscitation MAR Reviewed: Yes Vital Signs & Weight: Vital Signs (12 hours) Temp Pulse Resp BP BP Pulse Ox 09/15/17 08:46 68 160/74 H 09/15/17 08:03 98.5 F 68 16 147/66 H 98 09/15/17 08:00 98.5 F 68 16 Weight Admit Weight 155 lb 1.6 oz Weight 149 lb 4.8 oz I&O: 09/14/17 09/15/17 09/16/17 06:59 06:59 06:59 Intake Total 200 120 Balance 200 120 Result Diagrams: 09/11/17 05:56 09/11/17 05:56 Phys Exam - Physical Examination HEENT: PERRLA, moist MMs Neck: no JVD, supple Respiratory: no wheezing, no rales Cardiovascular: RRR, no significant murmur Gastrointestinal: soft, non-tender, positive bowel sounds Musculoskeletal: no edema, pulses present right UE fistula+ Neurological: non-focal, moves all 4 limbs Psychiatric: normal affect, A&O x 3 Dx/Plan (1) ESRD (end stage renal disease) on dialysis Code(s): N18.6 - END STAGE RENAL DISEASE; Z99.2 - DEPENDENCE ON RENAL DIALYSIS Status: Chronic (2) Anemia of renal disease Code(s): D63.1 - ANEMIA IN CHRONIC KIDNEY DISEASE Status: Chronic (3) DM type 2 (diabetes mellitus, type 2) Status: Chronic Qualifiers: Diabetes mellitus complication status: with kidney complications Diabetes mellitus complication detail: with chronic kidney disease 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 mellitus 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 and oil checker insulin use: without gas and oil checker use Chronic kidney disease stage: on chronic dialysis Qualified Code(s): E11.22 - Type 2 diabetes mellitus with diabetic chronic kidney disease; N18.6 - End stage renal disease; N18.6 - End stage renal disease; N18.6 - End stage renal disease; N18.6 - End stage renal disease; Z99.2 - Dependence on renal dialysis; Z99.2 - Dependence on renal dialysis; Z99.2 - Dependence on renal dialysis; Z99.2 - Dependence on renal dialysis (4) HTN (hypertension) Code(s): I10 - ESSENTIAL (PRIMARY) HYPERTENSION Status: Chronic Qualifiers: Hypertension type: essential hypertension Qualified Code(s): I10 - Essential (primary) hypertension - Plan awaiting outpt HD chair -: may dc anytime if above is arranged -: htn and dm is stable -: is amb in hallway * . Review of Systems - Medications/Allergies Allergies/Adverse Reactions: Allergies Allergy/AdvReac Type Severity Reaction Status Date / Time No Known Drug Allergies Allergy Verified 08/03/17 22:29 Medications: Current Medications Acetaminophen (Tylenol) 650 mg PO Q4H PRN PRN Reason: Headache/Fever or Pain Al Hydroxide/Mg Hydroxide (Maalox) 30 ml PO Q6H PRN PRN Reason: Heartburn or Indigestion Allopurinol (Zyloprim) 100 mg PO DAILY [facility] Last Admin: 09/15/17 08:46 Dose: 100 mg Artificial Tears (Tears Naturale) 0 drop EA EYE PRN PRN PRN Reason: Dry Eyes Aspirin (Aspirin Chewable) 81 mg PO DAILY [facility] Last Admin: 09/15/17 08:43 Dose: 81 mg Calcitriol (Rocaltrol) 0.25 mcg PO DAILY [facility] Last Admin: 09/15/17 08:46 Dose: 0.25 mcg [facility] ([facility] Last Admin: 09/15/17 08:46 Dose: 1,334 mg Calcium Carbonate (Tums) 1,000 mg PO BID [facility] Last Admin: 09/15/17 08:43 Dose: 1,000 mg [facility]il[facility] ([facility]) [facility] Last Admin: 09/15/17 08:46 Dose: 12.5 mg Epoetin Branden (Procrit) 10,000 units IVP MoWeFr@0900 [facility] Last Admin: 09/14/17 10:07 Dose: 10,000 units Famotidine (Pepcid) 20 mg PO DAILY [facility] Last Admin: 09/15/17 08:46 Dose: 20 mg Ferrous Sulfate (Feosol) 325 [facility] PO QAM[facility] Last Admin: 09/15/17 08:46 Dose: 325 mg Guaifenesin (Robitussin Sf) 200 mg PO Q4H PRN PRN Reason: Cough Heparin Sodium (Porcine) (Heparin) 5,000 units SC BID [facility] Last Admin: 09/15/17 08:47 Dose: 5,000 units Hydralazine HCl (Apresoline) 10 mg SLOW IVP Q4H PRN PRN Reason: Systolic BP > 180 Hydralazine HCl (Apresoline) 25 mg PO TID [facility] Last Admin: 09/15/17 08:46 Dose: 25 mg Loperamide HCl (Imodium) 2 mg PO PRN PRN PRN Reason: Diarrhea/Loose Stools Loratadine (Claritin) 10 mg PO DAILYPRN PRN PRN Reason: Sinus Symptoms Magnesium Hydroxide (Milk Of Magnesium) 30 ml PO DAILYPRN PRN PRN Reason: Constipation Mineral Oil/White Petrolatum (Eucerin Cream) 0 gm TOP BIDPRN PRN PRN Reason: Dry Skin Nifedipine (Procardia Xl) 30 mg PO DAILY [facility] Last Admin: 09/15/17 08:46 Dose: 30 mg Nitroglycerin (Nitrostat) 0.4 mg SL Q5MIN PRN PRN Reason: Chest Pain Ondansetron HCl (Zofran Odt) 4 mg PO Q6H PRN PRN Reason: Nausea/Vomiting Ondansetron HCl (Zofran) 4 mg IVP Q6H PRN PRN Reason: Nausea/Vomiting Phenol (Chloraseptic [place] 180 Ml Bot) 0 ml PO PRN PRN PRN Reason: Sore Throat Pravastatin Sodium (Pravachol) 20 mg PO [facility] Last Admin: 09/14/17 22:45 Dose: 20 mg Senna (Senokot) 2 tab PO HSPRN PRN PRN Reason: Constipation Sodium Chloride ([place] Nasal [place] 0.65%) 0 ml EA NARE QIDPRN PRN PRN Reason: Nasal Congestion Sodium Chloride (Flush - Normal Saline) 10 ml IVF PRN PRN PRN Reason: Saline Flush Last Admin: 09/12/17 08:53 Dose: 10 ml Zolpidem Tartrate (Ambien) 5 mg PO HSPRN PRN PRN Reason: Insomnia
--- NOTE | 2017-09-15 13:49 | PRG ---
DATE OF SERVICE: 09/15/2017 SUBJECTIVE: Patient was seen and examined at bedside and overnight events noted. Patient denies any shortness of breath or chest pain or palpitation. No history of nausea or vomiting or diarrhea or f ever or chills or cramps. OBJECTIVE: GENERAL: This is a well-built male in no apparent distress. VITAL SIGNS: Temperature 97.6, pulse 91, respiratory rate 18, blood pressure 146/69. HEENT: Atraumatic, normocephalic. Oral mucosa is moist. NECK: Supple. CARDIOVASCULAR: S1, S2 heard. Rate and rhythm regular. RESPIRATORY: Clear to auscultation. GASTROINTESTINAL: Abdomen is soft. MUSCULOSKELETAL: No tenderness. No edema. DERMATOLOGIC: No skin rash. NEUROLOGIC: Alert and awake and oriented x3. No focal neurologic deficits. Moving all the extremiti es. PSYCHIATRIC: Mood and affect normal. LABORATORY DATA: Not done today. ASSESSMENT AND PLAN: 1. End-stage renal disease. Continue on hemodialysis. Follow this case management for outpatient p lacement. 2. Edema, controlled. 3. Hypertension. 4. Anemia. 5. Overall, patient is tolerating dialysis. We will check labs and follow with case management for outpatient followup.
[2017-09-15] MEDS: Pravastatin Sodium 20 MG TAB PO SCH (22:08)
[2017-09-16] MEDS: Ferrous Sulfate 325 MG TAB PO SCH (10:13)
[2017-09-16] MEDS: Carvedilol 6.25 MG TAB PO SCH ×2 (10:14→17:03)
[2017-09-16] MEDS: NIFEdipine XL 30 MG TAB PO SCH (10:14)
[2017-09-16] MEDS: Calcitriol 0.25 MCG CAP PO SCH (10:15)
[2017-09-16] MEDS: Calcium Acetate 667 MG CAP PO SCH ×3 (10:15→17:05)
[2017-09-16] MEDS: Allopurinol 100 MG TAB PO SCH (10:15)
[2017-09-16] MEDS: Famotidine 20 MG TAB PO SCH (10:16)
[2017-09-16] MEDS: hydrALAZINE 25 MG TAB PO SCH ×3 (10:16→21:32)
[2017-09-16] MEDS: Heparin 5,000 UNITS/ML VIAL SC SCH ×2 (10:16→21:32)
--- NOTE | 2017-09-16 10:16 | PDOC.PN ---
- Subjective Encounter Start Date: 09/16/17 Encounter Start Time: 08:30 Subjective: feels good, no complaints -: is ambulating in hallway - Objective Resuscitation Status: Resuscitation Status FULL:Full Resuscitation MAR Reviewed: Yes Vital Signs & Weight: Vital Signs (12 hours) Temp Pulse Resp BP 09/16/17 04:00 98.5 F 72 18 134/65 Weight Admit Weight 155 lb 1.6 oz Weight 149 lb 4.8 oz I&O: 09/15/17 09/16/17 09/17/17 06:59 06:59 06:59 Intake Total 120 75 Balance 120 75 Result Diagrams: 09/11/17 05:56 09/11/17 05:56 Phys Exam - Physical Examination HEENT: PERRLA, moist MMs Neck: no JVD, supple Respiratory: no wheezing, no rales Cardiovascular: RRR, no significant murmur Gastrointestinal: soft, non-tender, positive bowel sounds Musculoskeletal: no edema, pulses present Neurological: non-focal, moves all 4 limbs Psychiatric: A&O x 3 Dx/Plan (1) ESRD (end stage renal disease) on dialysis Code(s): N18.6 - END STAGE RENAL DISEASE; Z99.2 - DEPENDENCE ON RENAL DIALYSIS Status: Chronic (2) Anemia of renal disease Code(s): D63.1 - ANEMIA IN CHRONIC KIDNEY DISEASE Status: Chronic (3) DM type 2 (diabetes mellitus, type 2) Status: Chronic Qualifiers: Diabetes mellitus complication status: with kidney complications Diabetes mellitus complication detail: with chronic kidney disease Diabetes mellitus terminal worker insulin use: without terminal worker use Chronic kidney disease stage: on chronic dialysis Qualified Code(s): E11.22 - Type 2 diabetes mellitus with diabetic chronic kidney disease; N18.6 - End stage renal disease; N18.6 - End stage renal disease; N18.6 - End stage renal disease; N18.6 - End stage renal disease; Z99.2 - Dependence on renal dialysis; Z99.2 - Dependence on renal dialysis; Z99.2 - Dependence on renal dialysis; Z99.2 - Dependence on renal dialysis (4) HTN (hypertension) Code(s): I10 - ESSENTIAL (PRIMARY) HYPERTENSION Status: Chronic Qualifiers: Hypertension type: essential hypertension Qualified Code(s): I10 - Essential (primary) hypertension - Plan hemostable -: awaiting outpt HD placement -: may dc anytime if above is ready -: htn and dm are stable * . Review of Systems - Medications/Allergies Allergies/Adverse Reactions: Allergies Allergy/AdvReac Type Severity Reaction Status Date / Time No Known Drug Allergies Allergy Verified 08/03/17 22:29 Medications: Current Medications Acetaminophen (Tylenol) 650 mg PO Q4H PRN PRN Reason: Headache/Fever or Pain Al Hydroxide/Mg Hydroxide (Maalox) 30 ml PO Q6H PRN PRN Reason: Heartburn or Indigestion Allopurinol (Zyloprim) 100 mg PO DAILY [facility] Last Admin: 09/15/17 08:46 Dose: 100 mg Artificial Tears (Tears Naturale) 0 drop EA EYE PRN PRN PRN Reason: Dry Eyes Aspirin (Aspirin Chewable) 81 mg PO DAILY [facility] Last Admin: 09/15/17 08:43 Dose: 81 mg Calcitriol (Rocaltrol) 0.25 mcg PO DAILY [facility] Last Admin: 09/15/17 08:46 Dose: 0.25 mcg Calcium Acetate (Phoslo) 1,334 mg PO TID-[facility] Last Admin: 09/15/17 17:41 Dose: 1,334 mg Calcium Carbonate (Tums) 1,000 mg PO BID [facility] Last Admin: 09/15/17 22:09 Dose: 1,000 mg Carvedilol (Coreg) 12.5 mg PO BID-[facility] Last Admin: 09/15/17 17:41 Dose: 12.5 mg Epoetin Branden (Procrit) 10,000 units IVP MoWeFr@0900 [facility] Last Admin: 09/14/17 10:07 Dose: 10,000 units Famotidine (Pepcid) 20 mg PO DAILY [facility] Last Admin: 09/15/17 08:46 Dose: 20 mg Ferrous Sulfate (Feosol) 325 mg PO QAM-[facility] Last Admin: 09/15/17 08:46 Dose: 325 mg Guaifenesin (Robitussin Sf) 200 mg PO Q4H PRN PRN Reason: Cough Heparin Sodium (Porcine) (Heparin) 5,000 units SC BID [facility] Last Admin: 09/15/17 22:08 Dose: 5,000 units Hydralazine HCl (Apresoline) 10 mg SLOW IVP Q4H PRN PRN Reason: Systolic BP > 180 Hydralazine HCl (Apresoline) 25 mg PO TID [facility] Last Admin: 09/15/17 22:09 Dose: 25 mg Loperamide HCl (Imodium) 2 mg PO PRN PRN PRN Reason: Diarrhea/Loose Stools Loratadine (Claritin) 10 mg PO DAILYPRN PRN PRN Reason: Sinus Symptoms Magnesium Hydroxide (Milk Of Magnesium) 30 ml PO DAILYPRN PRN PRN Reason: Constipation Mineral Oil/White Petrolatum (Eucerin Cream) 0 gm TOP BIDPRN PRN PRN Reason: Dry Skin Nifedipine (Procardia Xl) 30 mg PO DAILY [facility] Last Admin: 09/15/17 08:46 Dose: 30 mg Nitroglycerin (Nitrostat) 0.4 mg SL Q5MIN PRN PRN Reason: Chest Pain Ondansetron HCl (Zofran Odt) 4 mg PO Q6H PRN PRN Reason: Nausea/Vomiting Ondansetron HCl (Zofran) 4 mg IVP Q6H PRN PRN Reason: Nausea/Vomiting Phenol (Chloraseptic [place] 180 Ml Bot) 0 ml PO PRN PRN PRN Reason: Sore Throat Pravastatin Sodium (Pravachol) 20 mg PO [facility] Last Admin: 09/15/17 22:08 Dose: 20 mg Senna (Senokot) 2 tab PO HSPRN PRN PRN Reason: Constipation Sodium Chloride ([place] Nasal [place] 0.65%) 0 ml EA NARE QIDPRN PRN PRN Reason: Nasal Congestion Sodium Chloride (Flush - Normal Saline) 10 ml IVF PRN PRN PRN Reason: Saline Flush Last Admin: 09/12/17 08:53 Dose: 10 ml Zolpidem Tartrate (Ambien) 5 mg PO HSPRN PRN PRN Reason: Insomnia
[2017-09-16] MEDS: Calcium Carbonate 500 MG ChewTAB PO SCH ×2 (10:17→21:32)
--- NOTE | 2017-09-16 12:07 | PRG ---
DATE OF SERVICE: 09/16/2017 SUBJECTIVE: Patient was seen and examined at bedside and overnight events noted. Patient denies any shortness of breath or chest pain or palpitation. No history of nausea or vomiting or diarrhea or f ever or chills or cramps. OBJECTIVE: GENERAL: This is a well-built male in no apparent distress. VITAL SIGNS: Temperature 98.5, pulse 70, respiratory rate 18, blood pressure 134/65. HEENT: Atraumatic, normocephalic. Oral mucosa is moist. NECK: Supple. CARDIOVASCULAR: S1, S2 heard. Rate and rhythm regular. RESPIRATORY: Clear to auscultation. GASTROINTESTINAL: Abdomen is soft. MUSCULOSKELETAL: No tenderness. No edema. DERMATOLOGIC: No skin rash. NEUROLOGIC: Alert and awake and oriented x3. No focal neurologic deficits. Moving all the extremiti es. PSYCHIATRIC: Mood and affect normal. LABORATORY DATA: Not done today. ASSESSMENT AND PLAN: 1. End-stage renal disease. Continue on hemodialysis as tolerated. 2. Edema. 3. Hypertension. 4. Anemia. Plan is to check labs in the morning. We will follow. Continue on dialysis as tolerated.
[2017-09-16] MEDS: Pravastatin Sodium 20 MG TAB PO SCH (21:32)
[2017-09-17 05:18] LABS: #Eosinphils 0.6 thou/uL (0.0-0.7); #Lymphocytes 1.2 thou/uL (1.20-3.40); #Monocytes 0.6 thou/uL (0.11-0.59); #Neutrophils 3.5 thou/uL (1.40-6.50); %Basophils 0.1 % (0.0-1.0); %Eosinophils 10.4 % (0.0-10.0); %Lymphocytes 19.6 % (21.0-51.0); %Monocytes 10.3 % (0.0-10.0); %Neutrophils 59.6 % (42.0-75.0); Hemoglobin 10.6 g/dL (14.0-18.0); Mean Corpuscular HGB CONC 35.4 g/dL (32.0-36.0); Mean Corpuscular Hemoglobin 29.6 pg (27.0-31.0); Mean Corpuscular Volume 83.7 fl (80.0-94.0); Mean Platelet Volume 7.8 fL (7.4-10.4); Platelet Count 216 thou/uL (130-400); RBC Distribution Width 13.1 % (11.5-14.5); Red Blood Cell (RBC) Count 3.56 mill/uL (4.70-6.10); White Blood Cell (WBC) Count 5.8 thou/uL (4.8-10.8)
[2017-09-17 05:26] LABS: Anion Gap 16 mmol/L (10-20); BUN (Urea Nitrogen) 44 mg/dL (8.4-25.7); Calc. Creatinine Clearance 12 mL/min (70-130); Calcium 9.9 mg/dL (7.8-10.44); Carbon Dioxide 22 mmol/L (22-29); Chloride 100 mmol/L (98-107); Estimated GFR-MDRD 9; Glucose 102 mg/dL (70-105); Potassium 4.2 mmol/L (3.5-5.1); Sodium 134 mmol/L (136-145)
[2017-09-17] MEDS: Calcitriol 0.25 MCG CAP PO SCH (07:52)
[2017-09-17] MEDS: Ferrous Sulfate 325 MG TAB PO SCH (07:52)
[2017-09-17] MEDS: Allopurinol 100 MG TAB PO SCH (07:52)
[2017-09-17] MEDS: Calcium Acetate 667 MG CAP PO SCH ×3 (07:52→17:56)
[2017-09-17] MEDS: Calcium Carbonate 500 MG ChewTAB PO SCH ×2 (07:52→21:03)
[2017-09-17] MEDS: Carvedilol 6.25 MG TAB PO SCH ×2 (07:52→17:55)
[2017-09-17] MEDS: Famotidine 20 MG TAB PO SCH (07:53)
[2017-09-17] MEDS: hydrALAZINE 25 MG TAB PO SCH ×3 (07:53→21:03)
[2017-09-17] MEDS: NIFEdipine XL 30 MG TAB PO SCH (07:53)
[2017-09-17] MEDS ORDERED: Heparin 10,000 UNITS/ 10 ML VIAL ONE (09:00)
--- NOTE | 2017-09-17 09:23 | PRG ---
DATE OF SERVICE: 09/17/2017 SUBJECTIVE: This is a 61-year-old gentleman being seen for end-stage renal disease. The patient den ies any nausea, vomiting or chest pain. PHYSICAL EXAMINATION: GENERAL: Patient is awake, alert. VITAL SIGNS: Afebrile, pulse 68, breathing at 16, blood pressure 147/65. HEAD/NECK: Normocephalic. Atraumatic. EYES: EOMI. No deformity. EARS: Clear. No ulcers. NOSE: Intact. No lesions. MOUTH: Clear. No discharge. THROAT: Clear. No exudate. LUNGS: Clear. No crackles. CARDIAC: S1, S2. No rub. ABDOMEN: Benign. BS+. GENITALIA/RECTUM: Teague absent. BACK/EXTREMITIES: Edema 0+ Ulcer- NEUROLOGICAL: Alert and motor intact. SKIN: Rash- Bruise- LYMPHATICS: Edema- Ulcer- LABORATORY DATA: Show hemoglobin 10.6. ASSESSMENT AND RECOMMENDATIONS: 1. Stage 6 chronic kidney disease, continue hemodialysis. 2. Hypertension, stable. 3. Anemia, stable. 4. Medications based on glomerular filtration rate are appropriate.
[2017-09-17] MEDS: Epoetin (ESRD) 10,000 UNITS/ML VIAL IVP SCH (09:36)
--- NOTE | 2017-09-17 11:25 | PDOC.PN ---
- Subjective Encounter Start Date: 09/17/17 Encounter Start Time: 11:00 Subjective: is getting HD now -: no sob or pain - Objective Resuscitation Status: Resuscitation Status FULL:Full Resuscitation MAR Reviewed: Yes Vital Signs & Weight: Vital Signs (12 hours) Pulse BP 09/17/17 07:53 68 147/65 H 09/17/17 07:52 147/65 H Weight Admit Weight 155 lb 1.6 oz Weight 149 lb 4.8 oz I&O: 09/16/17 09/17/17 09/18/17 06:59 06:59 06:59 Intake Total 75 Balance 75 Result Diagrams: 09/17/17 05:01 09/17/17 05:01 Phys Exam - Physical Examination HEENT: PERRLA, moist MMs Neck: no JVD, supple Respiratory: no wheezing, no rales Cardiovascular: RRR, no significant murmur Gastrointestinal: soft, non-tender, positive bowel sounds Musculoskeletal: no edema, pulses present Neurological: non-focal, moves all 4 limbs Psychiatric: A&O x 3 Dx/Plan (1) ESRD (end stage renal disease) on dialysis Code(s): N18.6 - END STAGE RENAL DISEASE; Z99.2 - DEPENDENCE ON RENAL DIALYSIS Status: Chronic (2) Anemia of renal disease Code(s): D63.1 - ANEMIA IN CHRONIC KIDNEY DISEASE Status: Chronic (3) HTN (hypertension) Code(s): I10 - ESSENTIAL (PRIMARY) HYPERTENSION Status: Chronic Qualifiers: Hypertension type: essential hypertension Qualified Code(s): I10 - Essential (primary) hypertension - Plan hemostable -: awaiting out pt HD chair -: d/w CM, no response yet from insurance/dialysis company -: continue to amb in hallway as tolerated * . Review of Systems - Medications/Allergies Allergies/Adverse Reactions: Allergies Allergy/AdvReac Type Severity Reaction Status Date / Time No Known Drug Allergies Allergy Verified 08/03/17 22:29 Medications: Current Medications Acetaminophen (Tylenol) 650 mg PO Q4H PRN PRN Reason: Headache/Fever or Pain Al Hydroxide/Mg Hydroxide (Maalox) 30 ml PO Q6H PRN PRN Reason: Heartburn or Indigestion Allopurinol (Zyloprim) 100 mg PO DAILY [facility] Last Admin: 09/17/17 07:52 Dose: Not Given Artificial Tears (Tears Naturale) 0 drop EA EYE PRN PRN PRN Reason: Dry Eyes Aspirin (Aspirin Chewable) 81 mg PO DAILY [facility] Last Admin: 09/17/17 07:52 Dose: Not Given Calcitriol (Rocaltrol) 0.25 mcg PO DAILY [facility] Last Admin: 09/17/17 07:52 Dose: Not Given Calcium Acetate (Phoslo) 1,334 mg PO TID-[facility] Last Admin: 09/17/17 07:52 Dose: Not Given Calcium Carbonate (Tums) 1,000 mg PO BID [facility] Last Admin: 09/17/17 07:52 Dose: Not Given [facility]) [facility] Last Admin: 09/17/17 07:52 Dose: Not Given Epoetin Branden (Procrit) 10,000 units IVP MoWeFr@0900 [facility] Last Admin: 09/17/17 09:36 Dose: 10,000 units Famotidine (Pepcid) 20 mg PO DAILY [facility] Last Admin: 09/17/17 07:53 Dose: Not Given Ferrous Sulfate (Feosol) 325 mg PO QAM-[facility] Last Admin: 09/17/17 07:52 Dose: Not Given Guaifenesin (Robitussin Sf) 200 mg PO Q4H PRN PRN Reason: Cough Heparin Sodium (Porcine) (Heparin) 5,000 units SC BID [facility] Last Admin: 09/16/17 21:32 Dose: 5,000 units Hydralazine HCl (Apresoline) 10 mg SLOW IVP Q4H PRN PRN Reason: Systolic BP > 180 Hydralazine HCl (Apresoline) 25 mg PO TID [facility] Last Admin: 09/17/17 07:53 Dose: Not Given Loperamide HCl (Imodium) 2 mg PO PRN PRN PRN Reason: Diarrhea/Loose Stools Loratadine (Claritin) 10 mg PO DAILYPRN PRN PRN Reason: Sinus Symptoms Magnesium Hydroxide (Milk Of Magnesium) 30 ml PO DAILYPRN PRN PRN Reason: Constipation Mineral Oil/White Petrolatum (Eucerin Cream) 0 gm TOP BIDPRN PRN PRN Reason: Dry Skin Nifedipine (Procardia Xl) 30 mg PO DAILY [facility] Last Admin: 09/17/17 07:53 Dose: Not Given Nitroglycerin (Nitrostat) 0.4 mg SL Q5MIN PRN PRN Reason: Chest Pain Ondansetron HCl (Zofran Odt) 4 mg PO Q6H PRN PRN Reason: Nausea/Vomiting Ondansetron HCl (Zofran) 4 mg IVP Q6H PRN PRN Reason: Nausea/Vomiting Phenol (Chloraseptic [place] 180 Ml Bot) 0 ml PO PRN PRN PRN Reason: Sore Throat Pravastatin Sodium (Pravachol) 20 mg PO HS [facility] Last Admin: 09/16/17 21:32 Dose: 20 mg Senna (Senokot) 2 tab PO HSPRN PRN PRN Reason: Constipation Sodium Chloride ([place] Nasal [place] 0.65%) 0 ml EA NARE QIDPRN PRN PRN Reason: Nasal Congestion Sodium Chloride (Flush - Normal Saline) 10 ml IVF PRN PRN PRN Reason: Saline Flush Last Admin: 09/12/17 08:53 Dose: 10 ml Zolpidem Tartrate (Ambien) 5 mg PO HSPRN PRN PRN Reason: Insomnia
[2017-09-17] MEDS: Heparin 5,000 UNITS/ML VIAL SC SCH ×2 (12:07→21:04)
[2017-09-17] MEDS: Pravastatin Sodium 20 MG TAB PO SCH (21:03)
[2017-09-18] MEDS: Carvedilol 6.25 MG TAB PO SCH ×2 (08:26→17:31)
[2017-09-18] MEDS: Calcium Carbonate 500 MG ChewTAB PO SCH ×2 (08:26→21:44)
[2017-09-18] MEDS: Calcitriol 0.25 MCG CAP PO SCH (08:27)
[2017-09-18] MEDS: Ferrous Sulfate 325 MG TAB PO SCH (08:27)
[2017-09-18] MEDS: hydrALAZINE 25 MG TAB PO SCH ×3 (08:27→21:44)
[2017-09-18] MEDS: NIFEdipine XL 30 MG TAB PO SCH (08:28)
[2017-09-18] MEDS: Allopurinol 100 MG TAB PO SCH (08:28)
[2017-09-18] MEDS: Calcium Acetate 667 MG CAP PO SCH ×3 (08:29→18:32)
[2017-09-18] MEDS: Famotidine 20 MG TAB PO SCH (08:30)
[2017-09-18] MEDS: Heparin 5,000 UNITS/ML VIAL SC SCH ×2 (08:30→21:44)
--- NOTE | 2017-09-18 12:17 | PRG ---
DATE OF SERVICE: 09/18/2017 SUBJECTIVE: A 61-year-old gentleman being seen for end-stage renal disease. Patient denies any naus ea, vomiting or chest pain. PHYSICAL EXAMINATION: GENERAL: Patient is awake, alert. VITAL SIGNS: Afebrile, pulse 69, breathing 16, blood pressure 146/70. HEAD/NECK: Normocephalic. Atraumatic. EYES: EOMI. No deformity. EARS: Clear. No ulcers. NOSE: Intact. No lesions. MOUTH: Clear. No discharge. THROAT: Clear. No exudate. LUNGS: Clear. No crackles. CARDIAC: S1, S2. No rub. ABDOMEN: Benign. BS+. GENITALIA/RECTUM: Teague absent. BACK/EXTREMITIES: Edema 0+ Ulcer- NEUROLOGICAL: Alert and motor intact. SKIN: Rash- Bruise- LYMPHATICS: Edema- Ulcer- LABORATORY DATA: Show hemoglobin 10.6. ASSESSMENT AND RECOMMENDATIONS: 1. Stage 6 chronic kidney disease. We will plan hemodialysis per schedule Sunday, Sunday, and . 2. Hypertension, stable. 3. Anemia, stable. 4. Medications based on glomerular filtration rate are appropriate.
--- NOTE | 2017-09-18 12:19 | PDOC.PN ---
- Subjective Encounter Start Date: 09/18/17 Encounter Start Time: 08:30 Subjective: no chest pain or sob - Objective Resuscitation Status: Resuscitation Status FULL:Full Resuscitation MAR Reviewed: Yes Vital Signs & Weight: Vital Signs (12 hours) Temp Pulse Resp BP BP 09/18/17 08:28 69 09/18/17 08:27 69 09/18/17 08:26 174/82 H 09/18/17 07:45 98.2 F 69 20 146/70 H Weight Admit Weight 155 lb 1.6 oz Weight 149 lb 4.8 oz I&O: 09/17/17 09/18/17 09/19/17 06:59 06:59 06:59 Intake Total 240 Balance 240 Result Diagrams: 09/17/17 05:01 09/17/17 05:01 Phys Exam - Physical Examination HEENT: PERRLA, moist MMs Neck: no JVD, supple Respiratory: no wheezing, no rales Cardiovascular: RRR, no significant murmur Gastrointestinal: soft, non-tender, positive bowel sounds Musculoskeletal: no edema, pulses present Neurological: non-focal, moves all 4 limbs Psychiatric: A&O x 3 Dx/Plan (1) ESRD (end stage renal disease) on dialysis Code(s): N18.6 - END STAGE RENAL DISEASE; Z99.2 - DEPENDENCE ON RENAL DIALYSIS Status: Chronic (2) Anemia of renal disease Code(s): D63.1 - ANEMIA IN CHRONIC KIDNEY DISEASE Status: Chronic (3) HTN (hypertension) Code(s): I10 - ESSENTIAL (PRIMARY) HYPERTENSION Status: Chronic Qualifiers: Hypertension type: essential hypertension Qualified Code(s): I10 - Essential (primary) hypertension - Plan hemostable -: may dc anytime if outpt HD chair is set up -: htn is stable -: had HD yesterday -: is trying to set up HD with [facility] this am * . Review of Systems - Medications/Allergies Allergies/Adverse Reactions: Allergies Allergy/AdvReac Type Severity Reaction Status Date / Time No Known Drug Allergies Allergy Verified 08/03/17 22:29 Medications: Current Medications Acetaminophen (Tylenol) 650 mg PO Q4H PRN PRN Reason: Headache/Fever or Pain Al Hydroxide/Mg Hydroxide (Maalox) 30 ml PO Q6H PRN PRN Reason: Heartburn or Indigestion Allopurinol (Zyloprim) 100 mg PO DAILY [facility] Last Admin: 09/18/17 08:28 Dose: 100 mg Artificial Tears (Tears Naturale) 0 drop EA EYE PRN PRN PRN Reason: Dry Eyes Aspirin (Aspirin Chewable) 81 mg PO DAILY [facility] Last Admin: 09/18/17 08:27 Dose: 81 mg Calcitriol (Rocaltrol) 0.25 mcg PO DAILY [facility] Last Admin: 09/18/17 08:27 Dose: 0.25 mcg [facility]cium [facility] ([facility]lo) [facility] Last Admin: 09/18/17 08:29 Dose: 1,334 mg Calcium Carbonate (Tums) 1,000 mg PO BID [facility] Last Admin: 09/18/17 08:26 Dose: 1,000 mg [facility]vedilol ([facility]g) [facility] Last Admin: 09/18/17 08:26 Dose: 12.5 mg Epoetin Branden (Procrit) 10,000 units IVP MoWeFr@0900 [facility] Last Admin: 09/17/17 09:36 Dose: 10,000 units Famotidine (Pepcid) 20 mg PO DAILY [facility] Last Admin: 09/18/17 08:30 Dose: Not Given Ferrous Sulfate (Feosol) 325 mg PO QAM-[facility] Last Admin: 09/18/17 08:27 Dose: 325 mg Guaifenesin (Robitussin Sf) 200 mg PO Q4H PRN PRN Reason: Cough Heparin Sodium (Porcine) (Heparin) 5,000 units SC BID [facility] Last Admin: 09/18/17 08:30 Dose: Not Given Hydralazine HCl (Apresoline) 10 mg SLOW IVP Q4H PRN PRN Reason: Systolic BP > 180 Hydralazine HCl (Apresoline) 25 mg PO TID [facility] Last Admin: 09/18/17 08:27 Dose: 25 mg Loperamide HCl (Imodium) 2 mg PO PRN PRN PRN Reason: Diarrhea/Loose Stools Loratadine (Claritin) 10 mg PO DAILYPRN PRN PRN Reason: Sinus Symptoms Magnesium Hydroxide (Milk Of Magnesium) 30 ml PO DAILYPRN PRN PRN Reason: Constipation Mineral Oil/White Petrolatum (Eucerin Cream) 0 gm TOP BIDPRN PRN PRN Reason: Dry Skin Nifedipine (Procardia Xl) 30 mg PO DAILY [facility] Last Admin: 09/18/17 08:28 Dose: 30 mg Nitroglycerin (Nitrostat) 0.4 mg SL Q5MIN PRN PRN Reason: Chest Pain Ondansetron HCl (Zofran Odt) 4 mg PO Q6H PRN PRN Reason: Nausea/Vomiting Ondansetron HCl (Zofran) 4 mg IVP Q6H PRN PRN Reason: Nausea/Vomiting Phenol (Chloraseptic [place] 180 Ml Bot) 0 ml PO PRN PRN PRN Reason: Sore Throat Pravastatin Sodium (Pravachol) 20 mg PO [facility] Last Admin: 09/17/17 21:03 Dose: 20 mg Senna (Senokot) 2 tab PO HSPRN PRN PRN Reason: Constipation Sodium Chloride ([place] Nasal [place] 0.65%) 0 ml EA NARE QIDPRN PRN PRN Reason: Nasal Congestion Sodium Chloride (Flush - Normal Saline) 10 ml IVF PRN PRN PRN Reason: Saline Flush Last Admin: 09/12/17 08:53 Dose: 10 ml Zolpidem Tartrate (Ambien) 5 mg PO HSPRN PRN PRN Reason: Insomnia
[2017-09-18] MEDS: Pravastatin Sodium 20 MG TAB PO SCH (21:44)
[2017-09-19] MEDS: Calcium Acetate 667 MG CAP PO SCH ×3 (08:42→17:24)
[2017-09-19] MEDS: Ferrous Sulfate 325 MG TAB PO SCH (08:43)
[2017-09-19] MEDS: Calcium Carbonate 500 MG ChewTAB PO SCH ×2 (08:43→20:39)
[2017-09-19] MEDS: hydrALAZINE 25 MG TAB PO SCH ×3 (08:43→20:39)
[2017-09-19] MEDS: Calcitriol 0.25 MCG CAP PO SCH (08:43)
[2017-09-19] MEDS: Allopurinol 100 MG TAB PO SCH (08:43)
[2017-09-19] MEDS: NIFEdipine XL 30 MG TAB PO SCH (08:43)
[2017-09-19] MEDS: Famotidine 20 MG TAB PO SCH (08:43)
[2017-09-19] MEDS: Carvedilol 6.25 MG TAB PO SCH ×2 (08:43→17:24)
[2017-09-19] MEDS: Heparin 5,000 UNITS/ML VIAL SC SCH (08:44)
--- NOTE | 2017-09-19 11:24 | PRG ---
DATE OF SERVICE: 09/19/2017 SUBJECTIVE: This is a 61-year-old gentleman being seen for end-stage renal disease. The patient den ies any nausea, vomiting, or chest pain. OBJECTIVE: GENERAL: Patient is awake, alert. VITAL SIGNS: Afebrile, pulse 62, breathing at 16, blood pressure 130/71. GENERAL APPEARANCE AND MENTAL STATUS: Fair. HEAD/NECK: Normocephalic. Atraumatic. EYES: EOMI. No deformity. EARS: Clear. No ulcers. NOSE: Intact. No lesions. MOUTH: Clear. No discharge. THROAT: Clear. No exudate. LUNGS: Clear. No crackles. CARDIAC: S1, S2. No rub. ABDOMEN: Benign. BS+. GENITALIA/RECTUM: Teague absent. BACK/EXTREMITIES: Edema 0+ Ulcer- NEUROLOGICAL: Alert and motor intact. SKIN: Rash- Bruise- LYMPHATICS: Edema- Ulcer- LABORATORY DATA: Hemoglobin 10.6, creatinine 6.1. ASSESSMENT AND RECOMMENDATIONS: 1. Stage 6 chronic kidney disease, currently hemodialysis Sunday, Sunday, Sunday 2. Hypertension, stable. 3. Anemia, stable. 4. Medications based on glomerular filtration rate are appropriate. Outpatient discharge planning is in progress.
[2017-09-19] MEDS: Epoetin (ESRD) 10,000 UNITS/ML VIAL IVP SCH ×2 (12:17→15:42)
[2017-09-19] MEDS ORDERED: diphenhydrAMINE 25 MG CAP PO PRN (13:55)
[2017-09-19] MEDS ORDERED: Hydrocortisone 1% Cream 30 GM TUBE TOP PRN (13:56)
[2017-09-19] MEDS ORDERED: Heparin 10,000 UNITS/ 10 ML VIAL ONE (14:02)
[2017-09-19] MEDS ORDERED: Vecuronium 10 MG VIAL ONE (15:34)
--- NOTE | 2017-09-19 19:12 | PDOC.PN ---
- Subjective Encounter Start Date: 09/19/17 Encounter Start Time: 19:00 Subjective: f/u for ESRD on current HD. Awaiting [employer] to approve outpt HD in this area. -: No new complaints and tolerating HD inpt. - Objective Resuscitation Status: Resuscitation Status FULL:Full Resuscitation MAR Reviewed: Yes Vital Signs & Weight: Vital Signs (12 hours) Temp Pulse Resp BP BP Pulse Ox 09/19/17 17:29 97.9 F 63 20 128/64 09/19/17 17:24 174/82 H 09/19/17 15:18 67 09/19/17 12:35 98.2 F 67 20 99 09/19/17 11:30 98.2 F 67 20 150/73 H 09/19/17 08:43 66 174/82 H 09/19/17 07:57 98.3 F 66 20 130/71 09/19/17 07:50 98.7 F 68 16 Weight Admit Weight 155 lb 1.6 oz Weight 149 lb 4.8 oz I&O: 09/18/17 09/19/17 09/20/17 06:59 06:59 06:59 Intake Total 240 500 Balance 240 500 Result Diagrams: 09/17/17 05:01 09/17/17 05:01 Phys Exam - Physical Examination Constitutional: NAD HEENT: PERRLA, oral pharynx no lesions R IJ tunneled HD catheter in place Neck: no JVD, supple Respiratory: no wheezing, clear to auscultation bilateral Cardiovascular: RRR Gastrointestinal: soft, non-tender, no distention, positive bowel sounds RUE with AV fistula in place Musculoskeletal: no edema, pulses present Neurological: normal sensation, moves all 4 limbs Skin: normal turgor, cap refill <2 seconds Dx/Plan (1) ESRD (end stage renal disease) on dialysis Code(s): N18.6 - END STAGE RENAL DISEASE; Z99.2 - DEPENDENCE ON RENAL DIALYSIS Status: Chronic Comment: Tolerating HD, awaiting insurance approval for outpt HD (2) Anemia of renal disease Code(s): D63.1 - ANEMIA IN CHRONIC KIDNEY DISEASE Status: Chronic Comment: Chronic, stable, no evidence of active blood loss (3) HTN (hypertension) Code(s): I10 - ESSENTIAL (PRIMARY) HYPERTENSION Status: Chronic Qualifiers: Hypertension type: essential hypertension Qualified Code(s): I10 - Essential (primary) hypertension Comment: Continue Coreg and Nifedipine (4) Noncompliance with medication regimen Code(s): Z91.14 - PATIENT'S OTHER NONCOMPLIANCE WITH MEDICATION REGIMEN Status : Chronic (5) Vitamin D deficiency Code(s): E55.9 - VITAMIN D DEFICIENCY, UNSPECIFIED Status: Chronic - 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
[2017-09-19] MEDS: Pravastatin Sodium 20 MG TAB PO SCH (20:39)
[2017-09-20 07:48] VITALS: TEMP 98.5
[2017-09-20] MEDS: Ferrous Sulfate 325 MG TAB PO SCH (07:55)
[2017-09-20] MEDS: Calcitriol 0.25 MCG CAP PO SCH (07:55)
[2017-09-20] MEDS: Famotidine 20 MG TAB PO SCH (07:56)
[2017-09-20] MEDS: hydrALAZINE 25 MG TAB PO SCH ×2 (07:56→14:40)
[2017-09-20] MEDS: Calcium Carbonate 500 MG ChewTAB PO SCH (07:56)
[2017-09-20] MEDS: Carvedilol 6.25 MG TAB PO SCH (07:57)
[2017-09-20] MEDS: Calcium Acetate 667 MG CAP PO SCH ×2 (07:58→12:04)
[2017-09-20] MEDS: Allopurinol 100 MG TAB PO SCH (07:58)
[2017-09-20] MEDS: NIFEdipine XL 30 MG TAB PO SCH (07:59)
--- NOTE | 2017-09-20 13:48 | PRG ---
DATE OF SERVICE: 09/20/2017 SUBJECTIVE: This is a 61-year-old gentleman being seen for end-stage renal disease. The patient den ies any nausea, vomiting or chest pain. PHYSICAL EXAMINATION: GENERAL: Patient is awake, alert. VITAL SIGNS: Afebrile, pulse 70, breathing at 16, blood pressure 135/70. GENERAL APPEARANCE AND MENTAL STATUS: Fair. HEAD/NECK: Normocephalic. Atraumatic. EYES: EOMI. No deformity. EARS: Clear. No ulcers. NOSE: Intact. No lesions. MOUTH: Clear. No discharge. THROAT: Clear. No exudate. LUNGS: Clear. No crackles. CARDIAC: S1, S2. No rub. ABDOMEN: Benign. BS+. GENITALIA/RECTUM: Teague absent. BACK/EXTREMITIES: Edema 0+ Ulcer- NEUROLOGICAL: Alert and motor intact. SKIN: Rash- Bruise- LYMPHATICS: Edema- Ulcer- LABORATORY: Showing hemoglobin 10.6. ASSESSMENT AND RECOMMENDATIONS: 1. Stage 6 chronic kidney disease. We will plan dialysis. 2. Hypertension, stable. 3. Anemia, stable. 4. Medications based on glomerular filtration rate are appropriate.
[2017-09-20 14:42] VITALS: BP 134/67
--- NOTE | 2017-09-20 22:52 | DIS ---
DATE OF ADMISSION: 09/03/2017 DATE OF DISCHARGE: 09/20/2017 DISCHARGE DIAGNOSES: 1. End-stage renal disease with current hemodialysis. 2. Anemia secondary to chronic kidney disease. 3. Hypertension, stable. 4. History of medication noncompliance. 5. Vitamin D deficiency, chronic. 6. Acute on chronic combined congestive heart failure with ejection fraction of 30-35%. 7. Acute hypoxic respiratory failure secondary to volume overload, resolved. 8. Status post left upper extremity arteriovenous fistula placement. CONSULTATIONS: Dr. Stephen and Dr. Perez with Nephrology Service. PERTINENT LABORATORY AND X-RAY FINDINGS: Creatinine ranged between 4.53-8.07 with estimated GFR rang ing between 7-13, phosphorus 5.6. Magnesium level 2.7. BNP 2871. CBC showed a white blood cell cou nt ranging between 4.5-6.9, hemoglobin ranged between 8.9-10.6. Hepatitis B and C panel dated 2017 negative. Influenza A and B antigen 09/03/2017 negative. Portable chest x-ray dated 09/03/2017 showed mild pulmonary vascular congestion. HOSPITAL COURSE: The patient was initially admitted after presenting with acute worsening of hypoxem ic respiratory failure in the context of volume overload secondary to end-stage renal disease and com bined congestive heart failure with ejection fraction of 30-35%. The patient was placed on BiPAP non invasive mechanical ventilation and underwent urgent hemodialysis. Patient required maintenance hemo dialysis throughout the hospital course and was evaluated for outpatient hemodialysis. Due to insura nce issues and slow clinical improvement, the patient's hospital course was prolonged. Patient did c linically stabilize with hemodialysis and respiratory status improved. The patient received general supportive measures and was monitored clinically during the hospital course. The patient was approve d for outpatient hemodialysis and will transition to outpatient hemodialysis under the direction of [facility]. The patient is ready for discharge on 09/20/2017. DISCHARGE MEDICATIONS: 1. Allopurinol 100 mg 1 tab p.o. daily. 2. Aspirin 81 mg 1 tab p.o. daily. 3. Calcitriol 0.25 mcg 1 tab p.o. daily. 4. Calcium acetate 667 mg 2 capsules p.o. t.i.d. 5. Calcium carbonate 1000 mg p.o. b.i.d. 6. Coreg 12.5 mg p.o. b.i.d. 7. Ferrous sulfate 325 mg p.o. daily. 8. Hydralazine 25 mg p.o. q.i.d. 9. Nifedipine XL 30 mg p.o. daily. 10. Pravachol 20 mg p.o. at bedtime. FOLLOWUP: The patient to follow up with [facility] in [place], [place] on 09/25/2017 at 11:15 a.m. The patient will follow up with Dr. Perez and Dr. Stephen with Nephrology Service and to call their o ffice for appointment time and date. CONDITION ON DISCHARGE: Fair. ACTIVITY: ad ilsa. DIET: Heart healthy and renal. CODE STATUS: FULL. DISPOSITION: Home, 09/20/2017.
== END 2017-09-20 17:09 | disposition home or self-care (01) | DRG 291 ==
LOC: ERS 11:49 → ERHOLD 16:01 → IMCU/EMU 19:33 → 3SE 09-04 22:30
PROVIDERS: ADMIT Internal Medicine; ATTEND Internal Medicine
PROC: 5A1D70Z Performance of Urinary Filtration, Intermittent, Less than 6 Hours Per Day (ICD-10-PCS; principal; 2017-09-03)
PROC: 5A09357 Assistance with Respiratory Ventilation, Less than 24 Consecutive Hours, Continuous Positive Airway Pressure (ICD-10-PCS; 2017-09-03)
PROC: 5A1D70Z Performance of Urinary Filtration, Intermittent, Less than 6 Hours Per Day (ICD-10-PCS; 2017-09-05)
PROC: 5A1D70Z Performance of Urinary Filtration, Intermittent, Less than 6 Hours Per Day (ICD-10-PCS; 2017-09-07)
PROC: 5A1D70Z Performance of Urinary Filtration, Intermittent, Less than 6 Hours Per Day (ICD-10-PCS; 2017-09-10)
PROC: 5A1D70Z Performance of Urinary Filtration, Intermittent, Less than 6 Hours Per Day (ICD-10-PCS; 2017-09-12)
PROC: 5A1D70Z Performance of Urinary Filtration, Intermittent, Less than 6 Hours Per Day (ICD-10-PCS; 2017-09-14)
PROC: 5A1D70Z Performance of Urinary Filtration, Intermittent, Less than 6 Hours Per Day (ICD-10-PCS; 2017-09-17)
PROC: 5A1D70Z Performance of Urinary Filtration, Intermittent, Less than 6 Hours Per Day (ICD-10-PCS; 2017-09-20)
DX: I13.2 Hypertensive heart and chronic kidney disease with heart failure and with stage 5 chronic kidney disease, or end stage renal disease (principal); J96.01 Acute respiratory failure with hypoxia; E87.2 Acidosis; N18.6 End stage renal disease; I50.43 Acute on chronic combined systolic (congestive) and diastolic (congestive) heart failure; N25.81 Secondary hyperparathyroidism of renal origin; D63.1 Anemia in chronic kidney disease; E55.9 Vitamin D deficiency, unspecified; Z91.14 Patient's other noncompliance with medication regimen; E87.70 Fluid overload, unspecified; E87.5 Hyperkalemia; Z99.2 Dependence on renal dialysis; E79.0 Hyperuricemia without signs of inflammatory arthritis and tophaceous disease; E11.22 Type 2 diabetes mellitus with diabetic chronic kidney disease; Z87.891 Personal history of nicotine dependence; E78.5 Hyperlipidemia, unspecified
CPT/HCPCS: 36415; 71045; 80048; 80053; 80069; 82553; 82805; 83735; 83880; 84484; 85025; 85610; 86580; 86704; 86706; 86803; 87340; 90935; 93005; 93798; 94660; 96374; 96375; A4216; G0257; J0360; J1644; J1940; Q4081